=== PATIENT | male | born 1970 | race Caucasian/White ===

== ENCOUNTER 2021-05-08 08:34 | Inpatient (IN) | payer SELFPAY ==
[~2021-05-08] VITALS: Ht 167.6 cm; Wt 85.7 kg
--- NOTE | 2021-05-08 08:34 | NUR ---
PT [address]IBRA [address] C/O ETOH. PT IS UNCOOPERATIVE AND NO OTHER COMPLAINT. PT IS AAOX3, NOT IN RESPIRATORY DISTRESS, V/S STABLE, KEPT RESTED AND COMFORTABLE. WILL CONTINUE TO MONITOR.
--- NOTE | 2021-05-08 08:50 | NUR ---
PATIENT UNCOOPERATIVE, DOESN'T WANT TO PROVIDE URINE SAMPLE. MD AWARE
--- NOTE | 2021-05-08 09:16 | NUR ---
COVID SPECIMEN OBTAINED AND SENT TO LAB.
[2021-05-08 09:33] LABS: BASOPHILS % (AUTO) 0.2 % (0.0-2.0); HEMATOCRIT 51 % (39-51); HEMOGLOBIN 16.2 g/dL (13.5-17.5); LYMPHOCYTES # (AUTO) 1.2 K/uL (0.8-4.8); LYMPHOCYTES % (AUTO) 5.8 % (20.0-44.0); MEAN CORPUSCULAR HGB CONC 32 g/dl (31.0-36.0); MEAN CORPUSCULAR VOLUME 94 fL (80-96); MONOCYTES % (AUTO) 9.3 % (2.0-12.0); NEUTROPHILS # (AUTO) 17.8 K/uL (1.8-8.9); NEUTROPHILS % (AUTO) 84.7 % (43.0-81.0); PLATELET COUNT (AUTO) 378 K/uL (150-450); RED BLOOD CELL COUNT(AUTO) 5.38 MIL/uL (4.5-6.0); WHITE BLOOD COUNT (AUTO) 21.1 K/uL (4.3-11.0)
[2021-05-08 09:39] LABS: ALANINE AMINOTRANSFERASE 322 U/L (12-78); ALBUMIN 4.1 g/dL (3.4-5.0); ALCOHOL, BLOOD < 3 mg/dL (0-0); ALKALINE PHOSPHATASE 61 U/L (46-116); ASPARTATE AMINOTRANSFERASE 447 U/L (15-37); BILIRUBIN,DIRECT 0.6 mg/dL (0.0-0.2); BILIRUBIN,TOTAL 1.5 mg/dL (0.2-1.0); CALCIUM, SERUM 9.7 mg/dL (8.5-10.1); CARBON DIOXIDE 24 mmol/L (21-32); CHLORIDE 106 mmol/L (98-107); CREATININE 5.4 mg/dL (0.6-1.3); GLUCOSE 130 mg/dL (74-106); POTASSIUM 3.2 mmol/L (3.5-5.1); SODIUM SERUM 149 mmol/L (136-145); TOTAL PROTEIN, SERUM 8.3 g/dL (6.4-8.2)
[2021-05-08 09:41] LABS: UREA NITROGEN, BLOOD 132 mg/dL (7-18)
[2021-05-08 09:42] LABS: ACETAMINOPHEN < 10 ug/ml (10-30)
--- NOTE | 2021-05-08 09:57 | NUR ---
PT IS WHEELED TO CT SCAN VIA [facility].
[2021-05-08] MEDS ORDERED: IV NS 0.9% 1,000 ML IV ONE (10:00)
[2021-05-08] MEDS ORDERED: CEFTRIAXONE 1 G in IV D5W 50 ML IV ONE (10:00)
--- NOTE | 2021-05-08 10:12 | NUR ---
MOVE SHEET SUBMITTED AND CALLED FOR TELE BED.
--- NOTE | 2021-05-08 10:22 | NUR ---
[facility] CALLED LOOP CUTTER PAGED.
[2021-05-08] MEDS ORDERED: CEFTRIAXONE 1GM BAG (ER ONLY) 50 ML IV ONE (10:40)
--- NOTE | 2021-05-08 10:47 | NUR ---
URINE SPECIMEN COLLECTED AND SENT TO LAB.
[2021-05-08 11:37] LABS: BILIRUBIN,URINE MODERATE (NEGATIVE); COLOR,URINE YELLOW (YELLOW); LEUKOCYTE ESTERASE ,URINE NEGATIVE (NEGATIVE); NITRITE, URINE NEGATIVE (NEGATIVE); PH,URINE 5.5 (5.0-8.0); PROTEIN,URINE 100 mg/dl (NEGATIVE); UGLUCOSE NEGATIVE (NEGATIVE); UROBILINOGEN,URINE 0.2 EU/dL (0.2)
[2021-05-08 11:42] LABS: THYROID STIMULATING HORMONE 0.661 uIU/mL (0.358-3.74)
[2021-05-08 11:45] LABS: WBC,URINE 0-2 /HPF (0-3)
--- NOTE | 2021-05-08 11:45 | NUR ---
MID LINE RN AT BEDSIDE.
[2021-05-08 11:46] LABS: BACTERIA,URINE None seen /HPF (None Seen); SQUAMOUS EPITHELIAL CELL,UR Few /HPF (None Seen)
--- NOTE | 2021-05-08 12:00 | NUR ---
GOT BED [id number]
[2021-05-08] MEDS: Thiamine 100 MG in IV D5W 50 ML IV SCH (13:54)
[2021-05-08] MEDS ORDERED: ONDANSETRON HCL/PF 4 MG/2 ML VIAL IVP PRN (14:30)
[2021-05-08] MEDS ORDERED: IV D5W 1,000 ML IV PRN (14:30)
[2021-05-08] MEDS ORDERED: Z GUARD REMEDY 4 OZ OINT TP PRN (15:30)
--- NOTE | 2021-05-08 16:46 | NUR ---
REPORT GIVEN TO ROSALIA COSME FOR ANGE.
--- NOTE | 2021-05-08 17:10 | NUR ---
COTTON CONVERTER ADMITTING NOTES RECEIVED PATIENT FROM E.R VIA VIRA, ACCOMPANIED BY ROSALIA SUTHERLAND. PATIENT IS IS A&O X 0. ONLY OPENS EYES TO PAIN. ON O2 VIA NC AT 2LPM. SATURATING WELL, NO S/SX OF RESPIRATORY DISTRESS NOTED. NOTED WITH IV ACCESS ON RIGHT UPPER ARM MIDLINE G #18, ONGOING D5W 1000 X 75CC/HR. HOOKED TO TELE MONITOR, READING SHOWING SR HR AT 90'S. WITH ARCHER CONNECTED TO URINE BAG DRAINING DARK YELLOW COLORED URINE. NO SKIN ISSUES IDENTIFIED. UNABLE TO PROVIDE INFORMATION DURING ASSESSMENT. VITAL SIGNS TAKEN AND RECORDED. SAFETY PRECAUTIONS IN PLACE: BED ON LOWEST LOCKED POSITION, SIDE RAILS UP X2, CALL LIGHT WITHIN EASY REACH. WILL CONTINUE TO MONITOR ACCORDINGLY.
[2021-05-08 17:15] VITALS: BP 129/75
--- NOTE | 2021-05-08 19:00 | NUR ---
CROSS TIE TURNER OPENING NOTES: RECEIVED PATIENT IN BED, ASLEEP. NO S/S OF DISTRESS NOTED. HOB ELEVATED AT ALL TIMES. BED ALARM ON. BED IN LOWEST AND LOCKED POSITION. CALL LIGHT WITHION REACH. ON TELE MONITOR WITH SINUS 74. WITH ARCHER CATH INTACT, DRAINING JYOTI COLORED URINE.
--- NOTE | 2021-05-08 19:05 | NUR ---
FRONT DESK CLOSING NOTES PATIENT IN BED, A&O X 0. ONLY OPENS EYES TO PAIN. ON O2 VIA NC AT 2LPM. SATURATING WELL, NO S/SX OF RESPIRATORY DISTRESS NOTED. NOTED WITH IV ACCESS ON RIGHT UPPER ARM MIDLINE G #18, ONGOING D5W 1000 X 75CC/HR. ON TELE MONITOR, READING SHOWING SR HR AT 90'S. WITH ARCHER CONNECTED TO URINE BAG DRAINING DARK YELLOW COLORED URINE. SAFETY PRECAUTIONS IN PLACE: BED ON LOWEST LOCKED POSITION, SIDE RAILS UP X2, CALL LIGHT WITHIN EASY REACH. ALL NEEDS ATTENDED AND MET. WILL ENDORSE TO ONCOMING SHIFT FOR ANGE.
[2021-05-08 20:00] VITALS: BP 135/91
[2021-05-08] MEDS ORDERED: HEPARIN SODIUM, PORCINE 5000 UNITS/1 ML VIAL IV SCH (21:00)
[2021-05-08 23:44] VITALS: BP 135/91
[2021-05-09] VITALS: BP 137/85
[2021-05-09 04:00] VITALS: BP 123/67
[2021-05-09] MEDS: IV D5W 1,000 ML IV PRN (04:19)
[2021-05-09 07:01] LABS: BASOPHILS # (AUTO) 0.1 K/uL (0.0-0.2); BASOPHILS % (AUTO) 0.4 % (0.0-2.0); EOSINOPHILS % (AUTO) 0.1 % (0.0-6.0); HEMATOCRIT 49 % (39-51); HEMOGLOBIN 16.1 g/dL (13.5-17.5); LYMPHOCYTES # (AUTO) 0.8 K/uL (0.8-4.8); LYMPHOCYTES % (AUTO) 5.4 % (20.0-44.0); MEAN CORPUSCULAR HGB CONC 33 g/dl (31.0-36.0); MEAN CORPUSCULAR VOLUME 94 fL (80-96); MONOCYTES % (AUTO) 6.8 % (2.0-12.0); NEUTROPHILS # (AUTO) 12.2 K/uL (1.8-8.9); NEUTROPHILS % (AUTO) 87.3 % (43.0-81.0); PLATELET COUNT (AUTO) 270 K/uL (150-450); RED BLOOD CELL COUNT(AUTO) 5.21 MIL/uL (4.5-6.0)
[2021-05-09 07:20] LABS: ALBUMIN 3.4 g/dL (3.4-5.0); BILIRUBIN,TOTAL 0.9 mg/dL (0.2-1.0); CALCIUM, SERUM 8.7 mg/dL (8.5-10.1); CREATININE 2.4 mg/dL (0.6-1.3); PHOSPHORUS 4.6 mg/dL (2.5-4.9); POTASSIUM 3.5 mmol/L (3.5-5.1); TOTAL PROTEIN, SERUM 7.6 g/dL (6.4-8.2)
[2021-05-09 07:49] LABS: MAGNESIUM 4.6 mg/dL (1.8-2.4)
[2021-05-09] MEDS: PANTOPRAZOLE 40 MG VIAL IV SCH (08:13)
[2021-05-09] MEDS: HEPARIN SODIUM, PORCINE 5000 UNITS/1 ML VIAL SQ SCH ×2 (08:15→20:14)
[2021-05-09 09:10] VITALS: BP 128/72
--- NOTE | 2021-05-09 11:00 | NUR ---
RN NOTES LORAINE EDMONDS NP AT BEDSIDE TO SEE THE PATIENT.
[2021-05-09 12:05] VITALS: BP 116/75
[2021-05-09] MEDS: Thiamine 100 MG in IV D5W 50 ML IV SCH (13:46)
--- NOTE | 2021-05-09 14:30 | NUR ---
RN NOTES SEEN PATIENT AND STIMULATED VERBALLY AND THROUGH TACTILE SENSATION; ACCOUNTING FILE CLERK ALSO AT BEDSIDE TO TRANSLATE. PATIENT ABLE TO ANSWER SIMPLE QUESTIONS AND FOLLOW SIMPLE COMMANDS; ABLE TO PROVIDE NAME OF "REJI FUENTES" AND "10/14/1960". ABLE TO SIP A LITTLE BIT OF WATER. COMPLAINT OF BODY PAIN BUT UNABLE TO RATE; UNABLE TO PROVIDE ANY OTHER INFORMATION. LOADING UNIT OPERATOR POWDER CHARGING MADE AWARE.
--- NOTE | 2021-05-09 14:41 | NUR ---
RN NOTES NURSING SWALLOW SCREEN DONE AND PATIENT PASSED. SENIOR PENSIONS ADMINISTRATOR MADE AWARE AND PROVIDED RECOMMENDATIONS.
[2021-05-09] MEDS ORDERED: LACTULOSE UDC 200 G in SODIUM CHLORIDE IRRIG SOLUTION 400 ML IR ONE (15:00)
--- NOTE | 2021-05-09 15:50 | NUR ---
RN NOTES OKAY TO GIVE LACTULOSE BY MOUTH PER PHARMACY PATIENT IS ABLE TO SWALLOW LIQUIDS.
--- NOTE | 2021-05-09 16:01 | NUR ---
RN NOTES OK TO ADVANCE DIET TOLERATED PER COORDINATOR INTEGRATED MARKETING.
[2021-05-09] MEDS: LACTULOSE 10 G/15 ML UDC (PYXIS) PO PRN ×2 (16:03→23:25)
[2021-05-09 16:10] VITALS: BP 125/78
[2021-05-09] MEDS: ERYTHROMYCIN BASE OPHTH 3.5 GM TUBE EACHEYE SCH ×2 (18:02→23:30)
--- NOTE | 2021-05-09 19:24 | NUR ---
RN NOTES PATIENT ABLE TO DRINK MILK FROM DINNER TRAY, BUT DID NOT EAT OTHER ITEMS IN TRAY. DRINKS FLUIDS WELL, NO ASPIRATION NOTED. ABLE TO BE AWAKENED, RESPONDS TO NAME AND TOUCH. IVF CONTINUOUS, ARCHER CATH IN PLACE. SAFETY MEASURES MAINTAINED. ENDORSED TO WOOD MILLING MACHINE TENDER RN FOR ANGE.
[2021-05-09 20:37] VITALS: BP 149/89
[2021-05-09] MEDS: ACETAMINOPHEN 650 MG/SUPP.RECT RC PRN (21:24)
--- NOTE | 2021-05-09 21:49 | NUR ---
Tylenol suppository given for temp 100.4 and cooling measures put in place.
[2021-05-10 00:09] LABS: CALCIUM, SERUM 8.4 mg/dL (8.5-10.1); POTASSIUM 3.8 mmol/L (3.5-5.1)
[2021-05-10 00:55] VITALS: BP 113/71
[2021-05-10 04:33] VITALS: BP 120/66
[2021-05-10] MEDS: IV D5W 1,000 ML IV PRN (05:03)
[2021-05-10] MEDS: ERYTHROMYCIN BASE OPHTH 3.5 GM TUBE EACHEYE SCH ×4 (05:31→23:25)
[2021-05-10] MEDS: LACTULOSE 10 G/15 ML UDC (PYXIS) PO PRN (05:31)
[2021-05-10 06:55] LABS: CALCIUM, SERUM 8.5 mg/dL (8.5-10.1); CREATININE 1.9 mg/dL (0.6-1.3); PHOSPHORUS 3.5 mg/dL (2.5-4.9); POTASSIUM 3.7 mmol/L (3.5-5.1)
--- NOTE | 2021-05-10 07:19 | NUR ---
DOCK LOADER OPENING NOTES RECEIVED PATIENT RESTING IN BED. PATIENT IS IS A&O X 0. ONLY OPENS EYES TO PAIN. ON O2 VIA NC AT 2LPM. SATURATING WELL, NO S/SX OF RESPIRATORY DISTRESS NOTED. NOTED WITH IV ACCESS ON RIGHT UPPER ARM MIDLINE G #18, ONGOING D5W 1000 X 75CC/HR. HOOKED TO TELE MONITOR, READING SHOWING SR HR AT 90'S. WITH ARCHER CONNECTED TO URINE BAG DRAINING DARK YELLOW COLORED URINE. SAFETY PRECAUTIONS IN PLACE: BED ON LOWEST LOCKED POSITION, SIDE RAILS UP X2, CALL LIGHT WITHIN EASY REACH. WILL CONTINUE TO MONITOR
--- NOTE | 2021-05-10 07:20 | NUR ---
RN CLOSING NOTES Patient has been alert, but not oriented, however did say thank you on one occasion when offered fluids. Patient tolerating fluids well, no choking or coughing. Temperature resolved with tylenol suppository and cooling measures. Lactulose given PRN for encephalopathy pt. cooperative and calm. Repositioned q2h, kept clean and dry, pt. is max assist with positioning. No other issues overnight. Addendum: 05/10/21 at 0731 by JAN WAGONER RN SR on monitor overnight.
[2021-05-10 07:42] LABS: MAGNESIUM 4.2 mg/dL (1.8-2.4)
[2021-05-10 08:00] VITALS: BP 126/76
[2021-05-10] MEDS: PANTOPRAZOLE 40 MG VIAL IV SCH (08:38)
[2021-05-10] MEDS: HEPARIN SODIUM, PORCINE 5000 UNITS/1 ML VIAL SQ SCH ×2 (08:38→22:20)
[2021-05-10 08:49] LABS: BASOPHILS % (AUTO) 0.1 % (0.0-2.0); EOSINOPHILS % (AUTO) 0.1 % (0.0-6.0); HEMATOCRIT 47 % (39-51); HEMOGLOBIN 15.1 g/dL (13.5-17.5); LYMPHOCYTES % (AUTO) 4.5 % (20.0-44.0); MEAN CORPUSCULAR HGB CONC 32 g/dl (31.0-36.0); MEAN CORPUSCULAR VOLUME 95 fL (80-96); MONOCYTES # (AUTO) 1.3 K/uL (0.1-1.30); MONOCYTES % (AUTO) 6.2 % (2.0-12.0); NEUTROPHILS # (AUTO) 18.9 K/uL (1.8-8.9); NEUTROPHILS % (AUTO) 89.1 % (43.0-81.0); PLATELET COUNT (AUTO) 202 K/uL (150-450); RED BLOOD CELL COUNT(AUTO) 4.93 MIL/uL (4.5-6.0); WHITE BLOOD COUNT (AUTO) 21.2 K/uL (4.3-11.0)
[2021-05-10] MEDS: CEFTRIAXONE 2 G in IV D5W 100 ML IV SCH ×2 (09:26→22:21)
[2021-05-10] MEDS: VANCOMYCIN 1.25 GM in IV D5W 250 ML IV SCH (11:29)
--- NOTE | 2021-05-10 12:59 | NUR ---
SS Consult: SS consult for Ammon Petersen. Pt. Is a 47-year-old male. Pt. is Georgian speaking. Erna from [facility] helped translate. Pt. stated his name is Cecil Botello and his is 72. Pt. does not demonstrate adequate insight to the reason for hospitalization. Per pt., he does not remember how he got to the hospital. Pt. was oriented x1/2, alert, and cooperative. During interview, pt. was capable of following directions and did not make appropriate eye-contact. Pt.s speech was at a low rate. Pt. appeared tired. SW explored pt.s living situation. Per pt., he resides with his sister Erna [pt. was not able to provide information]. SW explored pt.s hx of mental health and substance abuse. Pt. was not able to provide any history. Plan: SW provided available resources and pt. rejected. Will gather more information once pt. is more oriented.
[2021-05-10] MEDS: Thiamine 100 MG in IV D5W 50 ML IV SCH (14:29)
[2021-05-10] MEDS: MORPHINE SULFATE INJ 4 MG/ML DISP.SYRIN IV PRN ×2 (14:58→23:46)
[2021-05-10 16:00] VITALS: BP 104/65
--- NOTE | 2021-05-10 18:21 | NUR ---
UPS DRIVER CLOSING NOTES PATIENT RESTING IN BED. PATIENT IS IS A&O X 0. ONLY OPENS EYES TO PAIN. PATIENT IS BREATHING EVENLY AND NONLABORED ON O2 VIA NC AT 2LPM. SATURATING WELL, NO S/SX OF RESPIRATORY DISTRESS NOTED. NOTED WITH IV ACCESS ON RIGHT UPPER ARM MIDLINE G #18, ONGOING D5W 1000 X 75CC/HR. HOOKED TO TELE MONITOR, READING SHOWING SR HR AT 90'S. WITH ARCHER CONNECTED TO URINE BAG DRAINING DARK YELLOW COLORED URINE. ALL MEDICATIONS GIVEN ORDERED. SAFETY PRECAUTIONS IN PLACE: BED ON LOWEST LOCKED POSITION, SIDE RAILS UP X2, CALL LIGHT WITHIN EASY REACH. WILL ENDORSE TO ONCOMING SHIFT
[2021-05-10 18:46] LABS: CSF GLUCOSE 98 mg/dL (40-70); CSF PROTEIN 28.3 mg/dL (15-45)
--- NOTE | 2021-05-10 19:35 | NUR ---
MSRN ASLEEP, O2 AT 2 LITERS, IVF AT 125CC/HR INFUSING WELL. WILL REASSESS ONCE FULLY AWAKE. TO CONTINUE.
[2021-05-10 20:46] VITALS: BP 104/69
--- NOTE | 2021-05-10 23:45 | NUR ---
MSRN HS CARE DONE. VERBALIZES UNBEARABLE GENERALIZED PAIN SUNIL WHEN MOVED FROM SIDE TO SIDE. MORPHINE 4 MG IVP ADMINISTERED ORDERED.ABLE TO SAY HIS FIRST NAME, 02 2 L MAINTAINED. NO RESP DISTRESS, PRESENT IVF INFUSING WELL AT 125CC/HR VIA RIGHT UPPER ARM MIDLINE. COOPERATIVE, IN TEARS FROM HIS "ALL OVER PAIN" STATED. KEPT COMFORTABLE. EXPLAINED HEALTH CONDITION POOR CONCENTRATION. NEEDS CLOSER OBSERVATION AND FREQ CHECKING. BED ALARM ON, HFR. KEPT DRY CLEAN AND COMFORTABLE.
[2021-05-11] MEDS: IV D5W 1,000 ML IV PRN ×2 (02:47→15:13)
[2021-05-11] MEDS: VANCOMYCIN 1.25 GM in IV D5W 250 ML IV SCH ×2 (06:02→16:53)
[2021-05-11] MEDS: ERYTHROMYCIN BASE OPHTH 3.5 GM TUBE EACHEYE SCH ×4 (06:08→23:26)
--- NOTE | 2021-05-11 06:30 | NUR ---
MSRN SLEPT MOST OF THE NIGHT. OPENS EYES WHEN CALLED. PRESENT IVF CONTINUED. ARCHER 900 CC CLEAR JYOTI OUTPUT. KEPT COMFORTABLE.
[2021-05-11 06:45] LABS: BASOPHILS % (AUTO) 0.1 % (0.0-2.0); EOSINOPHILS % (AUTO) 0.6 % (0.0-6.0); HEMATOCRIT 42 % (39-51); HEMOGLOBIN 13.8 g/dL (13.5-17.5); LYMPHOCYTES # (AUTO) 1.2 K/uL (0.8-4.8); LYMPHOCYTES % (AUTO) 6.4 % (20.0-44.0); MEAN CORPUSCULAR HGB CONC 33 g/dl (31.0-36.0); MEAN CORPUSCULAR VOLUME 94 fL (80-96); MONOCYTES # (AUTO) 1.5 K/uL (0.1-1.30); MONOCYTES % (AUTO) 7.7 % (2.0-12.0); NEUTROPHILS # (AUTO) 16.2 K/uL (1.8-8.9); NEUTROPHILS % (AUTO) 85.2 % (43.0-81.0); PLATELET COUNT (AUTO) 152 K/uL (150-450); RED BLOOD CELL COUNT(AUTO) 4.44 MIL/uL (4.5-6.0)
--- NOTE | 2021-05-11 07:30 | NUR ---
RN MS NOTES PT IN BED, ASLEEP, AROUSABLE, SLEEPY, NO SIGN OF PAIN OR DISTRESS, CALL LIGHT WITHIN REACH, IV FLUIDS INFUSING WELL, F/C DRAINING WELL WITH CLEAR, YELLOW URINE.
[2021-05-11 08:00] VITALS: BP 119/71
[2021-05-11 08:55] LABS: CALCIUM, SERUM 7.8 mg/dL (8.5-10.1); CREATININE 1.4 mg/dL (0.6-1.3); MAGNESIUM 3.2 mg/dL (1.8-2.4); PHOSPHORUS 2.6 mg/dL (2.5-4.9); POTASSIUM 3.8 mmol/L (3.5-5.1)
[2021-05-11 09:58] LABS: ALBUMIN 2.4 g/dL (3.4-5.0); BILIRUBIN,DIRECT 0.2 mg/dL (0.0-0.2); BILIRUBIN,TOTAL 0.7 mg/dL (0.2-1.0); TOTAL PROTEIN, SERUM 6.5 g/dL (6.4-8.2)
[2021-05-11] MEDS: CEFTRIAXONE 2 G in IV D5W 100 ML IV SCH ×2 (10:06→21:37)
[2021-05-11 10:08] LABS: *ANA ANTI-CENTROMERE B AB <0.2 AI (0.0-0.9); *ANA ANTI-DNA(DS) AB, QN <1 IU/mL (0-9); *ANA ANTI-JO-1 <0.2 AI (0.0-0.9); *ANA ANTICHROMATIN ANTIBODY <0.2 AI (0.0-0.9); *ANA RNP ANTIBODIES <0.2 AI (0.0-0.9); *ANA SJOGREN'S ANTI-SS-A <0.2 AI (0.0-0.9); *ANA SJOGREN'S ANTI-SS-B <0.2 AI (0.0-0.9); *ANAANTI-SCLERODERMA-70 AB <0.2 AI (0.0-0.9); *ANASMITH AB <0.2 AI (0.0-0.9)
[2021-05-11] MEDS: MORPHINE SULFATE INJ 4 MG/ML DISP.SYRIN IV PRN ×2 (10:11→17:04)
[2021-05-11] MEDS: PANTOPRAZOLE 40 MG VIAL IV SCH (10:12)
[2021-05-11] MEDS: HEPARIN SODIUM, PORCINE 5000 UNITS/1 ML VIAL SQ SCH ×2 (10:21→21:33)
[2021-05-11 12:06] LABS: *SPE ALPHA-1-GLOBULIN 0.2 g/dL (0.0-0.4); *SPE ALPHA-2-GLOBULIN 0.8 g/dL (0.4-1.0); *SPE BETA GLOBULIN 1.2 g/dL (0.7-1.3); *SPE M-SPIKE Not Observed g/dL (Not Observed)
[2021-05-11] MEDS: Thiamine 100 MG in IV D5W 50 ML IV SCH (15:12)
[2021-05-11 16:00] VITALS: BP 135/79
[2021-05-11] MEDS: ACETAMINOPHEN 650 MG/SUPP.RECT RC PRN (16:52)
--- NOTE | 2021-05-11 19:00 | NUR ---
RN MS NOTES PT IN BED, ASLEEP, EASY TO AROUSE, ALERT TO SELF, VERBALLY RESPONSIVE, ABLE TO VERBALIZE PAIN, PM MEDS GIVEN ORDERED, PM CARE PROVIDED, ALL NEEDS ATTENDED.
--- NOTE | 2021-05-11 19:11 | NUR ---
CONTINUITY OF CARE Patient forgetful, on supplemental Oxygen 2L NC. Oxygen sat 94%. ARACELI midline intact, IVF infusing. Way cath intact, draining yellow urine. Will cont to provide care. Call light within reach.
[2021-05-11 20:00] VITALS: BP 111/70
[2021-05-11 20:33] VITALS: BP 111/70
[2021-05-12] MEDS: IV D5W 1,000 ML IV PRN (04:04)
[2021-05-12 04:10] LABS: BASOPHILS # (AUTO) 0.1 K/uL (0.0-0.2); BASOPHILS % (AUTO) 0.3 % (0.0-2.0); EOSINOPHILS % (AUTO) 0.7 % (0.0-6.0); HEMATOCRIT 41 % (39-51); HEMOGLOBIN 13.7 g/dL (13.5-17.5); LYMPHOCYTES # (AUTO) 1.1 K/uL (0.8-4.8); LYMPHOCYTES % (AUTO) 4.7 % (20.0-44.0); MEAN CORPUSCULAR HGB CONC 33 g/dl (31.0-36.0); MEAN CORPUSCULAR VOLUME 92 fL (80-96); MONOCYTES # (AUTO) 1.7 K/uL (0.1-1.30); MONOCYTES % (AUTO) 7.1 % (2.0-12.0); NEUTROPHILS # (AUTO) 20.4 K/uL (1.8-8.9); NEUTROPHILS % (AUTO) 87.2 % (43.0-81.0); PLATELET COUNT (AUTO) 162 K/uL (150-450); RED BLOOD CELL COUNT(AUTO) 4.47 MIL/uL (4.5-6.0); WHITE BLOOD COUNT (AUTO) 23.4 K/uL (4.3-11.0)
[2021-05-12 04:15] LABS: LIPASE 513 U/L (73-393)
[2021-05-12 04:23] LABS: ALBUMIN 2.2 g/dL (3.4-5.0); BILIRUBIN,DIRECT 0.2 mg/dL (0.0-0.2); BILIRUBIN,TOTAL 0.6 mg/dL (0.2-1.0); CALCIUM, SERUM 8.1 mg/dL (8.5-10.1); CREATININE 1.4 mg/dL (0.6-1.3); POTASSIUM 3.6 mmol/L (3.5-5.1)
[2021-05-12 04:29] LABS: CREATINE KINASE, TOTAL 2821 U/L (39-308)
[2021-05-12] MEDS: VANCOMYCIN 1.25 GM in IV D5W 250 ML IV SCH (05:01)
[2021-05-12] MEDS: ERYTHROMYCIN BASE OPHTH 3.5 GM TUBE EACHEYE SCH ×4 (05:04→23:52)
--- NOTE | 2021-05-12 05:30 | NUR ---
END OF SHIFT REPORT Patient appears to be more alert this morning. On Oxygen support 2L NC, oxygen sat in high 90's. ARACELI midline, ongoing IVF. On IV abx. Afebrile. Denies chest pain, no acute respiratory distress. Will endorse to oncoming RN.
[2021-05-12 08:00] VITALS: BP 129/72
[2021-05-12] MEDS: IV NS 0.9% 1,000 ML IV SCH ×2 (09:01→17:33)
[2021-05-12] MEDS: PANTOPRAZOLE 40 MG VIAL IV SCH (09:02)
[2021-05-12] MEDS: CEFTRIAXONE 2 G in IV D5W 100 ML IV SCH ×2 (09:02→20:53)
[2021-05-12] MEDS: HEPARIN SODIUM, PORCINE 5000 UNITS/1 ML VIAL SQ SCH ×2 (09:03→20:52)
[2021-05-12 09:07] LABS: COMPLEMENT C3, SERUM 121 mg/dL (82-167); COMPLEMENT C4, SERUM 35 mg/dL (12-38)
[2021-05-12] MEDS: Thiamine 100 MG in IV D5W 50 ML IV SCH (14:20)
[2021-05-12 14:21] LABS: BAND % (MANUAL) 2 % (0.0-5.0); LYMPHOCYTES % (MANUAL) 7 % (16-48); MONOCYTES % (MANUAL) 7 % (0-11.0); NEUTROPHILS % (MANUAL) 84 (42-76)
[2021-05-12 16:00] VITALS: BP 118/74
[2021-05-12] MEDS: ACETAMINOPHEN 650 MG/SUPP.RECT RC PRN (16:06)
[2021-05-12] MEDS: MORPHINE SULFATE INJ 4 MG/ML DISP.SYRIN IV PRN (17:37)
[2021-05-12 20:00] VITALS: BP 133/83
[2021-05-13] MEDS: MORPHINE SULFATE INJ 4 MG/ML DISP.SYRIN IV PRN ×4 (01:04→20:43)
--- NOTE | 2021-05-13 01:04 | NUR ---
ADMINISTERED MORPHINE PER MD ORDER. VS WNL. WILL CONTINUE TO MONITOR.
[2021-05-13] MEDS: IV NS 0.9% 1,000 ML IV SCH ×3 (03:52→23:47)
[2021-05-13] MEDS: ERYTHROMYCIN BASE OPHTH 3.5 GM TUBE EACHEYE SCH ×4 (05:35→23:47)
--- NOTE | 2021-05-13 06:56 | NUR ---
RN CLOSING NOTES PT IN BED, AWAKE. AOx2-3. ON NC 2LPM AND TOLERATING WELL. NO SOB NOTED. NO S/SX OF RESPIRATORY DISTRESS NOTED.IV ACCESS IN ARACELI MIDLINE. IV IS INTACT, PATENT, AND FLUSHING WELL. ALL NEEDS MET. PT KEPT CLEAN AND DRY. TREATED PAIN ONCE DURING SHIFT. SAFETY PRECAUTIONS IN PLACE: BED IN LOWEST, LOCKED POSITION, BRAKES ON. SIDERAILS UPx2, AND BRAKES ON. TABLE AND CALL LIGHT WITHIN REACH. WILL ENDORSE TO ONCOMING SHIFT.
[2021-05-13 07:10] LABS: LIPASE 152 U/L (73-393)
--- NOTE | 2021-05-13 07:30 | NUR ---
MS RN OPENING NOTES RECEIVED PT IN BED, AWAKE. AOx2-3. ON NC 2LPM AND TOLERATING WELL. NO SOB NOTED. NO S/SX OF RESPIRATORY DISTRESS NOTED.IV ACCESS IN ARACELI MIDLINE. IV IS INTACT, PATENT, AND FLUSHING WELL. SAFETY PRECAUTIONS IN PLACE: BED IN LOWEST, LOCKED POSITION, BRAKES ON. SIDERAILS UPx2, AND BRAKES ON. TABLE AND CALL LIGHT WITHIN REACH. WILL CONTINUE TO MONITOR.
[2021-05-13] MEDS: PANTOPRAZOLE 40 MG VIAL IV SCH (08:51)
[2021-05-13] MEDS: HEPARIN SODIUM, PORCINE 5000 UNITS/1 ML VIAL SQ SCH ×2 (08:52→20:47)
[2021-05-13 10:09] LABS: CREATINE KINASE, TOTAL 1689 U/L (39-308)
[2021-05-13] MEDS: Thiamine 100 MG in IV D5W 50 ML IV SCH (14:22)
--- NOTE | 2021-05-13 19:30 | NUR ---
MS RN CLOSING NOTES PT IN BED, AWAKE. AOx2-3. ON NC 2LPM AND TOLERATING WELL. NO SOB NOTED. NO S/SX OF RESPIRATORY DISTRESS NOTED.IV ACCESS IN ARACELI MIDLINE. IV IS INTACT, PATENT, AND FLUSHING WELL. IV ACCESS IN THE RIGHT LOWER ARM INTACT FLUSHING WELL. ALL DUE MEDS GIVEN ORDERED. SAFETY PRECAUTIONS IN PLACE: BED IN LOWEST, LOCKED POSITION, BRAKES ON. SIDERAILS UPx2, AND BRAKES ON. TABLE AND CALL LIGHT WITHIN REACH. WILL ENDORSE INCOMING SHIFT FOR ANGE.
[2021-05-13 20:00] VITALS: BP 129/89
--- NOTE | 2021-05-13 20:01 | NUR ---
RN OPENING NOTES RECEIVED PT IN BED, AWAKE. AOx3. ON NC 2LPM AND TOLERATING WELL. NO SOB NOTED. NO S/SX OF RESPIRATORY DISTRESS NOTED. IV ACCESS IN ARACELI MIDLINE RUNNING NS @ 100 ML/HR. SAFETY PRECAUTIONS IN PLACE: BED IN LOWEST, LOCKED POSITION, BRAKES ON. SIDERAILS UPx2, AND BRAKES ON. TABLE AND CALL LIGHT WITHIN REACH. WILL CONTINUE TO MONITOR.
--- NOTE | 2021-05-13 21:10 | NUR ---
SYRINGES OF HEPARIN AND MORPHINE FELL TO FLOOR AND COULD NOT BE DIFFERENTIATED. REMOVED SECOND DOSE OF HEPARIN AND MORPHINE.
[2021-05-14] MEDS: LACTULOSE 10 G/15 ML UDC (PYXIS) PO PRN (04:56)
[2021-05-14] MEDS: MORPHINE SULFATE INJ 4 MG/ML DISP.SYRIN IV PRN ×2 (04:56→09:32)
[2021-05-14] MEDS: ERYTHROMYCIN BASE OPHTH 3.5 GM TUBE EACHEYE SCH ×3 (04:56→17:07)
--- NOTE | 2021-05-14 05:04 | NUR ---
WENT TO ADMINISTER MORPHINE IV AND MIDLINE WAS REMOVED. WASTED IV MORPHINE, WHICH WAS PULLED FROM VIAL. WILL CONTACT DR. KEE FOR MIDLINE.
[2021-05-14 07:06] LABS: BASOPHILS % (AUTO) 0.1 % (0.0-2.0); EOSINOPHILS % (AUTO) 2.2 % (0.0-6.0); HEMATOCRIT 39 % (39-51); HEMOGLOBIN 13.1 g/dL (13.5-17.5); LYMPHOCYTES % (AUTO) 5.9 % (20.0-44.0); MEAN CORPUSCULAR HGB CONC 33 g/dl (31.0-36.0); MEAN CORPUSCULAR VOLUME 93 fL (80-96); MONOCYTES # (AUTO) 1.6 K/uL (0.1-1.30); MONOCYTES % (AUTO) 9.3 % (2.0-12.0); NEUTROPHILS # (AUTO) 14.3 K/uL (1.8-8.9); NEUTROPHILS % (AUTO) 82.5 % (43.0-81.0); PLATELET COUNT (AUTO) 265 K/uL (150-450); RED BLOOD CELL COUNT(AUTO) 4.25 MIL/uL (4.5-6.0); WHITE BLOOD COUNT (AUTO) 17.4 K/uL (4.3-11.0)
--- NOTE | 2021-05-14 07:20 | NUR ---
MS RN OPENING NOTES RECEIVED PATIENT IN BED, AWAKE, NO SIGNS OF ACUTE DISTRESS NOTED. ON O2 @ 2LPM VIA N/C, NO SOB NOTED. NO IV ACCESS AT THIS TIME, ENDORSED BY REHABILITATION PSYCHOLOGIST. MIDLINE INSERTION WAS ORDERED. WITH F/C INTACT, DRAINING CLEAR YELLOW COLORED URINE. SAFETY MEASURE IN PLACE. BED LOCKED AND IN LOWEST POSITION, SR UP, CALL LIGHT PLACED WITHIN EASY REACH. WILL CONTINUE TO MONITOR.
--- NOTE | 2021-05-14 07:24 | NUR ---
REPORT GIVEN. PT STABLE. WASTED MORPHINE WITH GATITO LINDSEY.
[2021-05-14 08:48] VITALS: BP 137/88
[2021-05-14] MEDS: HEPARIN SODIUM, PORCINE 5000 UNITS/1 ML VIAL SQ SCH ×2 (08:56→21:10)
[2021-05-14] MEDS: PANTOPRAZOLE 40 MG VIAL IV SCH (09:29)
[2021-05-14] MEDS: ACETAMINOPHEN 650 MG/SUPP.RECT RC PRN (09:31)
[2021-05-14] MEDS: IV NS 0.9% 1,000 ML IV SCH ×2 (09:40→21:51)
[2021-05-14 10:13] LABS: BAND % (MANUAL) 2 % (0.0-5.0); NEUTROPHILS % (MANUAL) 74 (42-76)
[2021-05-14 10:14] LABS: EOSINOPHILS % (MANUAL) 2 % (0-4); LYMPHOCYTES % (MANUAL) 7 % (16-48); MONOCYTES % (MANUAL) 15 % (0-11.0)
[2021-05-14 11:33] LABS: BILIRUBIN,DIRECT 0.2 mg/dL (0.0-0.2); BILIRUBIN,TOTAL 0.7 mg/dL (0.2-1.0); CALCIUM, SERUM 8.1 mg/dL (8.5-10.1); CREATININE 1.3 mg/dL (0.6-1.3); POTASSIUM 3.3 mmol/L (3.5-5.1); TOTAL PROTEIN, SERUM 6.9 g/dL (6.4-8.2)
[2021-05-14 11:35] LABS: ALBUMIN 1.7 g/dL (3.4-5.0)
[2021-05-14 14:11] LABS: LIPASE 202 U/L (73-393)
[2021-05-14] MEDS: THIAMINE HCL 100 MG TABLET PO SCH (14:28)
[2021-05-14 15:02] LABS: CREATINE KINASE, TOTAL 1426 U/L (39-308)
[2021-05-14 16:51] VITALS: BP 140/98
--- NOTE | 2021-05-14 18:57 | NUR ---
MS RN CLOSING NOTES PATIENT IN BED, AWAKE, NO SIGNS OF ACUTE DISTRESS NOTED. REMAINS ON O2 @ 2LPM VIA N/C, NO SOB NOTED, SATURATING @94%. MIDLINE ON ARACELI #18G INTACT AND PATENT, NS @100ML/HR RUNNING. WITH F/C INTACT, DRAINING CLEAR YELLOW COLORED URINE. SAFETY MEASURE IN PLACE. BED LOCKED AND IN LOWEST POSITION, SR UP, CALL LIGHT PLACED WITHIN EASY REACH. WILL ENDORSE TO NEXT SHIFT.
--- NOTE | 2021-05-14 19:05 | NUR ---
RN NOTES: RECEIVED AWAKE ON BED, PER ENDORSEMENT PATIENT IS NOT TALKING OR HAVING CONVERSATION WITH STAFF, A/OX1, ORIENTED TO UNIT AND STAFF, ARACELI-ML IN SITE WITH IVF OF NS AT 100 ML/HR VIA INFUSION PUMP, WITH O2 AT 2L/MIN, NO SOB OR ANY SIGN OF RESPIRATORY DISCOMFORT, ON ARCHER CATH DRAINING INTO DARK YELLOWISH COLORED URINE AT 200 CC LEVEL, FOR LABS IN THE MORNING.
[2021-05-14 20:00] VITALS: BP 146/94
--- NOTE | 2021-05-14 21:51 | NUR ---
RN NOTES: IVF ON N/S COMPLETED, STARTED NEW BOTTLE REGULATED AT 100 ML/HR VIA INFUSION PUMP.ON CLOSE WATCH.
[2021-05-15] MEDS: ERYTHROMYCIN BASE OPHTH 3.5 GM TUBE EACHEYE SCH ×5 (00:30→23:39)
--- NOTE | 2021-05-15 01:59 | NUR ---
RN NOTES: PATIENT TRIED TO GET UP FROM HIS BED WITHOUT CALLING FOR ASSISTANCE, AUTOMOBILE SALESMAN CAME AND RN TO HELP HIM, HIS IV CANNULA WAS ACCIDENTALLY PULLED OUT, HE DONT TALK RN AND AUTOMOBILE SALESMAN BOTH ENCOURAGING HIM TO SAY AND EXPRESS HIMSELF WHAT HE NEEDS.INSTRUCTED HOW TO USE THE CALL LIGHT. -EXPLAINED TO HIM RN WILL INSERT THE CANNULA AGAIN HE AGREED.
--- NOTE | 2021-05-15 02:17 | NUR ---
RN NOTES: NEW IV CANNULA INSERTED ON THE RH G#22, 1 ATTEMPT WITH GOOD BACK FLOW, SECURED WITH TRANSPARENT DRESSING.
[2021-05-15 07:07] LABS: BASOPHILS % (AUTO) 0.2 % (0.0-2.0); EOSINOPHILS % (AUTO) 2.1 % (0.0-6.0); HEMATOCRIT 38 % (39-51); HEMOGLOBIN 12.4 g/dL (13.5-17.5); LYMPHOCYTES # (AUTO) 1.3 K/uL (0.8-4.8); LYMPHOCYTES % (AUTO) 6.7 % (20.0-44.0); MEAN CORPUSCULAR HGB CONC 33 g/dl (31.0-36.0); MEAN CORPUSCULAR VOLUME 93 fL (80-96); MONOCYTES # (AUTO) 1.7 K/uL (0.1-1.30); MONOCYTES % (AUTO) 8.8 % (2.0-12.0); NEUTROPHILS % (AUTO) 82.2 % (43.0-81.0); PLATELET COUNT (AUTO) 302 K/uL (150-450); WHITE BLOOD COUNT (AUTO) 19.5 K/uL (4.3-11.0)
--- NOTE | 2021-05-15 07:40 | NUR ---
MS RN OPENING NOTE Patient in bed, awake. A/O x 1, Belarusian speaking. On O2 at 2 LPM via NC, breathing evenly and unlabored. No SOB or s/s of distress noted. IV access on Right hand #20G infusing NS at 100 ml/hr. Way catheter in place draining to an taniya colored urine. Safety precautions in place: bed in low, locked position; siderails up x 2; call light within reach. Will continue to monitor.
[2021-05-15] MEDS: IV NS 0.9% 1,000 ML IV SCH ×2 (07:43→17:25)
--- NOTE | 2021-05-15 07:43 | NUR ---
RN NOTES: IVF CONSUMED, NEW BOTTLE OF NS AT 100 ML/HR STARTED, PATIENT IS MORE RESPONSIVE RIGHT NOW,HE TALK AND ASKED FOR WATER, ENCOURAGE TO VERBALIZED NEEDS, INSTRUCT TO USE THE CALL LIGHT, ENDORSED FOR CONTINUITY OF CARE.
[2021-05-15 07:54] LABS: ALBUMIN 1.7 g/dL (3.4-5.0); BILIRUBIN,DIRECT 0.3 mg/dL (0.0-0.2); BILIRUBIN,TOTAL 0.7 mg/dL (0.2-1.0); CALCIUM, SERUM 7.8 mg/dL (8.5-10.1); CREATININE 1.1 mg/dL (0.6-1.3); TOTAL PROTEIN, SERUM 6.3 g/dL (6.4-8.2)
[2021-05-15 08:00] VITALS: BP 137/62
[2021-05-15 09:22] LABS: LIPASE 243 U/L (73-393)
[2021-05-15] MEDS: PANTOPRAZOLE 40 MG TABLET.DR PO SCH (09:22)
[2021-05-15] MEDS: THIAMINE HCL 100 MG TABLET PO SCH (09:22)
[2021-05-15] MEDS: HEPARIN SODIUM, PORCINE 5000 UNITS/1 ML VIAL SQ SCH ×2 (09:23→21:21)
[2021-05-15] MEDS: POTASSIUM CHLORIDE 20 MEQ TAB.PRT.SR PO SCH ×3 (09:29→12:30)
[2021-05-15 09:34] LABS: CREATINE KINASE, TOTAL 912 U/L (39-308)
[2021-05-15] MEDS: MORPHINE SULFATE INJ 4 MG/ML DISP.SYRIN IV PRN ×2 (15:14→21:15)
--- NOTE | 2021-05-15 15:14 | NUR ---
RN NOTE Patient complained of generalized pain 10/24. CASSANDRA Deluca translated for patient. PRN Morphine given. Will continue to monitor patient.
[2021-05-15 16:00] VITALS: BP 136/87
--- NOTE | 2021-05-15 19:15 | NUR ---
MS RN OPENING NOTE: RECEIVED REPORT AT PATIENT'S BEDSIDE. PATIENT ALERT AND ORIENTED X1. SRI LANKAN SPEAKING ONLY. DURING TRANSLATION, PATIENT RESPONSES ARE DELAYED AND FEW. FLAT AFFECT. NAD AND VSS AT THIS TIME. F/C IN PLACE, PATENT AND DRAINING JYOTI, CLEAR COLORED URINE. HOB ELEVATED TO FOWLERS POSITION. REPLACED NC PATIENT TAKES IT OFF OCCASIONALLY PER REPORT. SPO2 93% ON RA AND 96% ON 2L O2 VIA NC. IV RUNNING FLUIDS WITHOUT S/SX OF INFILTRATION/ERYTHEMA TO OR SURROUNDING INSERTION SITE TO R HAND. DRESSING C/D/I. BED IN LOW/LOCKED POSITION. BED ALARM ON. SIDE RAILS UP X2. CALL LIGHT WITHIN REACH.
--- NOTE | 2021-05-15 19:43 | NUR ---
MS RN CLOSING NOTE Patient in bed, resting. A/O x 1, Burundian speaking. On O2 at 2 LPM via NC, breathing evenly and unlabored. No SOB or s/s of distress noted. IV access on Right hand #20G infusing NS at 75 ml/hr. Way catheter in place draining to an taniya colored urine with an output of 1900 cc. Due meds given. Safety precautions in place: bed in low, locked position; siderails up x 2; call light within reach. Will continue to monitor.
[2021-05-15 20:00] VITALS: BP 137/83
[2021-05-15 20:20] VITALS: BP 137/83
[2021-05-16] MEDS: MORPHINE SULFATE INJ 4 MG/ML DISP.SYRIN IV PRN ×3 (01:57→19:46)
[2021-05-16] MEDS: LORAZEPAM INJ 2 MG/ML VIAL IV PRN ×2 (05:53→23:31)
[2021-05-16] MEDS: ERYTHROMYCIN BASE OPHTH 3.5 GM TUBE EACHEYE SCH ×2 (06:07→13:28)
[2021-05-16] MEDS: IV NS 0.9% 1,000 ML IV SCH (06:53)
[2021-05-16 06:58] LABS: BASOPHILS % (AUTO) 0.2 % (0.0-2.0); EOSINOPHILS % (AUTO) 2.8 % (0.0-6.0); HEMATOCRIT 37 % (39-51); LYMPHOCYTES # (AUTO) 1.4 K/uL (0.8-4.8); MEAN CORPUSCULAR HGB CONC 33 g/dl (31.0-36.0); MEAN CORPUSCULAR VOLUME 93 fL (80-96); MONOCYTES # (AUTO) 1.4 K/uL (0.1-1.30); MONOCYTES % (AUTO) 7.2 % (2.0-12.0); NEUTROPHILS # (AUTO) 16.2 K/uL (1.8-8.9); NEUTROPHILS % (AUTO) 82.8 % (43.0-81.0); PLATELET COUNT (AUTO) 364 K/uL (150-450); RED BLOOD CELL COUNT(AUTO) 3.97 MIL/uL (4.5-6.0); WHITE BLOOD COUNT (AUTO) 19.6 K/uL (4.3-11.0)
--- NOTE | 2021-05-16 07:22 | NUR ---
MS RN OPENING NOTE RECEIVED PATIENT'S BEDSIDE. PATIENT ALERT AND ORIENTED X1. BOLIVIAN SPEAKING ONLY. ARCHER CHAIR IN PLACE, PATENT AND DRAINING JYOTI, CLEAR COLORED URINE. HOB ELEVATED TO FOWLERS POSITION. PATIENTON NASAL CANULA WITH OXYGEN AT 2LPM SATURATING AT 93 % BUT PATIENT USUALLY REMOVES IT. PATIENT WITH IV ACCESS ON THE RIGHT HAND 2 22, WITH IV FLUID OF NS RUNNING AT 75ML/HR.PATENTAND INTACT. SAFETY MEASURES ENSURED WITH BED IN LOW, LOCKED POSITION, BED ALARM ON, SIDE RAILS UP X2. CALL LIGHT WITHIN REACH. WILL CONTINUE TO MONITOR PATIENT.
[2021-05-16 07:25] LABS: MAGNESIUM 2.2 mg/dL (1.8-2.4); POTASSIUM 3.3 mmol/L (3.5-5.1)
--- NOTE | 2021-05-16 07:37 | NUR ---
MS RN CLOSING NOTE: PATIENT IN BE, EYES CLOSED. EASILY AROUSED BY TOUCH. PATIENT IN NAD AND VSS AT THIS TIME. NO CHANGE IN PATIENT'S MENTATION FROM START OF SHIFT. PATIENT MEDICATED THROUGHOUT THE NIGHT PER PRN ORDERS FOR S/SX OF PAIN AND ANXIETY WITH EFFECTIVE RESULTS. REPORTED OFF TO AM SHIFT RN.
[2021-05-16 08:00] VITALS: BP 133/76
[2021-05-16] MEDS: THIAMINE HCL 100 MG TABLET PO SCH (08:28)
[2021-05-16] MEDS: PANTOPRAZOLE 40 MG TABLET.DR PO SCH (08:28)
[2021-05-16] MEDS: HEPARIN SODIUM, PORCINE 5000 UNITS/1 ML VIAL SQ SCH (08:33)
[2021-05-16] MEDS: POTASSIUM CHLORIDE 20 MEQ TAB.PRT.SR PO SCH ×3 (10:33→13:28)
[2021-05-16 16:00] VITALS: BP 136/86
--- NOTE | 2021-05-16 19:00 | NUR ---
MS RN closing NOTE PATIENT'S BEDSIDE. PATIENT ALERT AND ORIENTED X1. UPPER SORBIAN SPEAKING ONLY. ARCHER CHAIR IN PLACE, PATENT AND DRAINING JYOTI, CLEAR COLORED URINE. HOB ELEVATED TO FOWLERS POSITION. PATIENTON NASAL CANULA WITH OXYGEN AT 2LPM SATURATING AT 93 % BUT PATIENT USUALLY REMOVES IT. PATIENT WITH IV ACCESS ON THE RIGHT HAND 2 22, WITH IV FLUID OF NS RUNNING AT 75ML/HR.PATENTAND INTACT. SAFETY MEASURES ENSURED WITH BED IN LOW, LOCKED POSITION, BED ALARM ON, SIDE RAILS UP X2. CALL LIGHT WITHIN REACH. WILL ENDORSE PATIENT FOR CONTINUITY OF CARE
--- NOTE | 2021-05-16 19:25 | NUR ---
MS RN OPENING NOTE: RECEIVED REPORT AT PATIENT'S BEDSIDE. PATIENT ALERT AND ORIENTED X1. SOUTH KOREAN SPEAKING ONLY. PATIENT VERBALIZES HE'S CONFUSED DURING TRANSLATION. OFTEN PROVIDES 'BLANK STARE' WHEN COMMUNICATED WITH IN HIS TAZLINA TONGUE. AT TIMES IS ABLE TO ARTICULATE HE IS IN PAIN WELL PROVIDING NON-VERBAL RESPONSES (EG. FACIAL GRIMACING, RESTLESSNESS). C/O PAIN, VSS AT THIS TIME. F/C IN PLACE, PATENT AND DRAINING JYOTI, CLEAR COLORED URINE. HOB ELEVATED TO FOWLERS POSITION. REPLACED NC PATIENT TAKES IT OFF OCCASIONALLY PER REPORT. SPO2 93% ON RA AND 96% ON 2L O2 VIA NC. L HAND IV [address], WITHOUT S/SX OF INFILTRATION/ERYTHEMA TO OR SURROUNDING INSERTION SITE. DRESSING C/D/I. BED IN LOW/LOCKED POSITION. BED ALARM ON. SIDE RAILS UP X2. CALL LIGHT WITHIN REACH.
--- NOTE | 2021-05-16 19:45 | NUR ---
MS RN NOTE: ADMINISTERED MORPHINE 4MG IVP PER PRN ORDER FOR S/SX AND C/O OF PAIN 11/24.
[2021-05-16 20:00] VITALS: BP 135/73
[2021-05-17] MEDS: MORPHINE SULFATE INJ 4 MG/ML DISP.SYRIN IV PRN (03:54)
--- NOTE | 2021-05-17 04:04 | NUR ---
MS RN NOTE: DURING ROUNDS, PATIENT AWAKE AND SPOKE TO THIS NURSE IN DJIBOUTIAN, "WHERE IS THE OTHER LADY?" (REFERRING TO THE CONCESSIONS MANAGER). PATIENT STATES HE SPEAKS A LITTLE DJIBOUTIAN. WHEN THIS NURSE ASKED, "DO YOU KNOW WHERE YOU ARE?" HE SAID, "[place]?" THIS NURSE TOLD PATIENT WHAT CITY AND PLACE HE IS IN, WHY HE IS HERE AND HOW HE GOT HERE. PATIENT VERBALIZES UNDERSTANDING AND STATES, "WHAT DO I DO NOW?" THIS NURSE EXPLAINED THE PROCESS OF HOSPITALIZATION. PATIENT VERBALIZES UNDERSTANDING REGARDING THE DOCTORS EVALUATING HIS LABS AND ASSESSING HIM WHEN THE MD ROUNDS LATER IN THE MORNING. PATIENT'S L HAND IV BECAME DISLODGED SHORTLY AFTER MORPHINE IVP WAS ADMINISTERED. 2 IV RE-INSERTION ATTEMPTS FAILED.
[2021-05-17 05:59] LABS: BASOPHILS # (AUTO) 0.1 K/uL (0.0-0.2); BASOPHILS % (AUTO) 0.5 % (0.0-2.0); EOSINOPHILS % (AUTO) 1.8 % (0.0-6.0); HEMATOCRIT 36 % (39-51); LYMPHOCYTES # (AUTO) 1.2 K/uL (0.8-4.8); LYMPHOCYTES % (AUTO) 6.2 % (20.0-44.0); MEAN CORPUSCULAR HGB CONC 33 g/dl (31.0-36.0); MEAN CORPUSCULAR VOLUME 93 fL (80-96); MONOCYTES # (AUTO) 1.3 K/uL (0.1-1.30); MONOCYTES % (AUTO) 6.5 % (2.0-12.0); NEUTROPHILS # (AUTO) 16.7 K/uL (1.8-8.9); PLATELET COUNT (AUTO) 411 K/uL (150-450); RED BLOOD CELL COUNT(AUTO) 3.93 MIL/uL (4.5-6.0); WHITE BLOOD COUNT (AUTO) 19.7 K/uL (4.3-11.0)
[2021-05-17] MEDS: PANTOPRAZOLE 40 MG TABLET.DR PO SCH (06:51)
--- NOTE | 2021-05-17 07:07 | NUR ---
MS RN CLOSING NOTE: PATIENT AWAKE, ALERT AND ORIENTED X2. PATIENT'S SPEECH IS CLEAR, SPEAKS AND UNDERSTANDS SOME DANISH. PATIENT STATING THAT HE'S HUNGRY. DRINKING CLEAR FLUIDS INDEPENDENTLY AND WITHOUT COMPLICATION. NAD AND VSS AT THIS TIME. PATIENT STATES HE HAS PAINS WHEN HE BREATHES. ENCOURAGED AND DEMONSTRATED DEEP BREATHING AND COUGHING TECHNIQUES. PATIENT RETURNS DEMONSTRATION. F/C IN PLACE, PATENT AND DRAINING JYOTI, CLEAR COLORED URINE. HOB ELEVATED TO FOWLERS POSITION. STABLE ON O2 @2LPM VIA NC. UNABLE TO ESTABLISH NEW IV ACCESS. WILL ENDORSE TO ONCOMING SHIFT. BED IN LOW/LOCKED POSITION. BED ALARM ON. SIDE RAILS UP X2. CALL LIGHT WITHIN REACH.
[2021-05-17 07:29] LABS: ALBUMIN 1.8 g/dL (3.4-5.0); BILIRUBIN,DIRECT 0.4 mg/dL (0.0-0.2); BILIRUBIN,TOTAL 0.8 mg/dL (0.2-1.0); CALCIUM, SERUM 8.4 mg/dL (8.5-10.1); CREATININE 1.1 mg/dL (0.6-1.3); POTASSIUM 3.1 mmol/L (3.5-5.1); TOTAL PROTEIN, SERUM 6.4 g/dL (6.4-8.2)
--- NOTE | 2021-05-17 07:30 | NUR ---
MS RN OPENING NOTES RECEIVED PATIENT ON BED, AWAKE AND A/O X1-2. ON O2 AT 2LPM VIA NASAL CANNULA TOLERATING WELL. NO SOB NOTED. NOT IN DISTRESS. WITH NO IV ACCESS AT THIS TIME. PATIENT PULLED OUT HIS IV LINE. WILL REINSERT. WITH ARCHER CATHETER IN PLACED DRAINING CLEAR JYOTI COLORED URINE. SAFETY MEASURES IN PLACED. CALL LIGHT WITHIN REACH. BED ON LOWEST LOCKED POSITION, SIDE RAILS UP X2. WILL CONTINUE TO MONITOR.
[2021-05-17 08:00] VITALS: BP 135/84
[2021-05-17] MEDS: THIAMINE HCL 100 MG TABLET PO SCH (08:58)
[2021-05-17] MEDS: POTASSIUM CHLORIDE 20 MEQ TAB.PRT.SR PO SCH ×2 (10:16→11:17)
[2021-05-17 10:30] LABS: EOSINOPHILS % (MANUAL) 1 % (0-4); LYMPHOCYTES % (MANUAL) 10 % (16-48); MONOCYTES % (MANUAL) 7 % (0-11.0); NEUTROPHILS % (MANUAL) 82 (42-76)
[2021-05-17 16:00] VITALS: BP 143/85
--- NOTE | 2021-05-17 18:36 | NUR ---
MS RN CLOSING NOTES PATIENT ON BED, AWAKE AND A/O X1-2. ON O2 AT 2LPM VIA NASAL CANNULA TOLERATING WELL. NO SOB NOTED. NOT IN DISTRESS. WITH IV ACCESS AT RIGHT FOREARM G20 SALINE LOCKED, PATENT AND INTACT. WITH ARCHER CATHETER IN PLACED DRAINING CLEAR JYOTI COLORED URINE AT 3,300ML. SAFETY MEASURES IN PLACED. CALL LIGHT WITHIN REACH. BED ON LOWEST LOCKED POSITION, SIDE RAILS UP X2. WILL ENDORSE TO NEXT SHIFT FOR ANGE.
--- NOTE | 2021-05-17 19:45 | NUR ---
RN OPENING NOTES RECEIVED PT IN BED, AWAKE. AOx2-3, ABLE TO MAKE NEEDS KNOWN. ON NC 2LPM AND TOLERATING WELL. NO SOB NOTED. NO S/SX OF RESPIRATORY DISTRESS NOTED. IV ACCESS IN RFA #20. IV IS INTACT, PATENT, AND FLUSHING WELL. SAFETY PRECAUTIONS IN PLACE: BED IN LOWEST, LOCKED POSITION, SIDERAILS UPx2, AND BRAKES ON. TABLE AND CALL LIGHT WITHIN REACH. WILL CONTINUE TO MONITOR.
[2021-05-17 20:00] VITALS: BP 110/60
[2021-05-17] MEDS ORDERED: ACETAMINOPHEN 650 MG/20.3 ML UDC PO PRN (20:00)
[2021-05-18 06:39] LABS: BASOPHILS % (AUTO) 0.1 % (0.0-2.0); EOSINOPHILS % (AUTO) 1.5 % (0.0-6.0); HEMATOCRIT 35 % (39-51); HEMOGLOBIN 11.7 g/dL (13.5-17.5); LYMPHOCYTES # (AUTO) 1.4 K/uL (0.8-4.8); LYMPHOCYTES % (AUTO) 7.4 % (20.0-44.0); MEAN CORPUSCULAR HGB CONC 33 g/dl (31.0-36.0); MEAN CORPUSCULAR VOLUME 92 fL (80-96); MONOCYTES # (AUTO) 1.1 K/uL (0.1-1.30); MONOCYTES % (AUTO) 5.8 % (2.0-12.0); NEUTROPHILS # (AUTO) 16.2 K/uL (1.8-8.9); NEUTROPHILS % (AUTO) 85.2 % (43.0-81.0); PLATELET COUNT (AUTO) 469 K/uL (150-450); RED BLOOD CELL COUNT(AUTO) 3.81 MIL/uL (4.5-6.0)
--- NOTE | 2021-05-18 07:02 | NUR ---
RN CLOSING NOTES PT IN BED, AWAKE. AOx2-3, ABLE TO MAKE NEEDS KNOWN. ON NC 2LPM AND TOLERATING WELL. NO SOB NOTED. NO S/SX OF RESPIRATORY DISTRESS NOTED. IV ACCESS IN RAC #22. IV IS INTACT, PATENT, AND FLUSHING WELL. ALL NEEDS MET. PT KEPT CLEAN AND DRY. SAFETY PRECAUTIONS IN PLACE: BED IN LOWEST, LOCKED POSITION, SIDERAILS UPx2, AND BRAKES ON. TABLE AND CALL LIGHT WITHIN REACH. WILL ENDORSE TO ONCOMING SHIFT FOR ANGE.
[2021-05-18 07:21] LABS: ALBUMIN 1.8 g/dL (3.4-5.0); BILIRUBIN,DIRECT 0.4 mg/dL (0.0-0.2); BILIRUBIN,TOTAL 0.8 mg/dL (0.2-1.0); CALCIUM, SERUM 8.7 mg/dL (8.5-10.1); POTASSIUM 3.5 mmol/L (3.5-5.1); TOTAL PROTEIN, SERUM 6.6 g/dL (6.4-8.2)
--- NOTE | 2021-05-18 07:30 | NUR ---
MS RN OPENING NOTES RECEIVED PATIENT ON BED AWAKE AND A/O X1-2. ON O2 AT 2LPM VIA NASAL CANNULA TOLERATING WELL. NO SOB NOTED. NOT IN DISTRESS. WITH NO COMPLAINTS OF PAIN AT THIS TIME. WITH IV ACCESS AT RIGHT AC G22 SALINE LOCKED, PATENT AND INTACT. SAFETY MEASURES IN PLACED. CALL LIGHT WITHIN REACH. BED ON LOWEST LOCKED POSITION, SIDE RAILS UP X2. WILL CONTINUE TO MONITOR.
[2021-05-18 08:00] VITALS: BP 125/87
[2021-05-18] MEDS: PANTOPRAZOLE 40 MG TABLET.DR PO SCH (08:15)
[2021-05-18] MEDS: THIAMINE HCL 100 MG TABLET PO SCH (08:15)
[2021-05-18 16:00] VITALS: BP 125/76
--- NOTE | 2021-05-18 18:30 | NUR ---
MS RN CLOSING NOTES PATIENT ON BED AWAKE AND A/O X1-2. ON O2 AT 2LPM VIA NASAL CANNULA TOLERATING WELL. NO SOB NOTED. NOT IN DISTRESS. WITH NO COMPLAINTS OF PAIN AT THIS TIME. WITH IV ACCESS AT RIGHT AC G22 SALINE LOCKED, PATENT AND INTACT. SAFETY MEASURES IN PLACED. CALL LIGHT WITHIN REACH. BED ON LOWEST LOCKED POSITION, SIDE RAILS UP X2. WILL ENDORSE TO NEXT SHIFT FOR ANGE.
--- NOTE | 2021-05-18 19:37 | NUR ---
RN OPENING NOTES RECEIVED PT IN BED, AWAKE. AOx2-3, ABLE TO MAKE NEEDS KNOWN. ON 2LPM VIA NASAL CANNULA AND TOLERATING WELL. NO SOB NOTED. NO S/SX OF RESPIRATORY DISTRESS NOTED. IV ACCESS IN RFA #22G. IV IS INTACT, PATENT, AND FLUSHING WELL. SAFETY PRECAUTIONS IN PLACE: BED IN LOWEST, LOCKED POSITION, SIDERAILS UPx2, AND BRAKES ON. TABLE AND CALL LIGHT WITHIN REACH. WILL CONTINUE TO MONITOR.
[2021-05-18 20:00] VITALS: BP 135/95
[2021-05-19] MEDS: PANTOPRAZOLE 40 MG TABLET.DR PO SCH (06:36)
--- NOTE | 2021-05-19 06:45 | NUR ---
RN CLOSING NOTES PT IN BED, AWAKE. AOx2-3, ABLE TO MAKE NEEDS KNOWN. NOTES SAY PATIENT IS CONFUSED BUT PATIENT CHOOSES WHEN TO REPLY. PT IS ABLE TO VERBALIZE NEEDS. ON 2LPM VIA NASAL CANNULA AND TOLERATING WELL. NO SOB NOTED. NO S/SX OF RESPIRATORY DISTRESS NOTED. IV ACCESS IN RFA #22G. IV IS INTACT, PATENT, AND FLUSHING WELL. ALL NEEDS MET. PT KEPT CLEAN AND DRY. SAFETY PRECAUTIONS IN PLACE: BED IN LOWEST, LOCKED POSITION, SIDERAILS UPx2, AND BRAKES ON. TABLE AND CALL LIGHT WITHIN REACH. WILL ENDORSE TO ONCOMING SHIFT FOR ANGE.
[2021-05-19 07:25] LABS: BASOPHILS % (AUTO) 0.1 % (0.0-2.0); EOSINOPHILS % (AUTO) 0.7 % (0.0-6.0); HEMATOCRIT 35 % (39-51); HEMOGLOBIN 11.8 g/dL (13.5-17.5); LYMPHOCYTES # (AUTO) 1.2 K/uL (0.8-4.8); LYMPHOCYTES % (AUTO) 5.6 % (20.0-44.0); MEAN CORPUSCULAR HGB CONC 33 g/dl (31.0-36.0); MEAN CORPUSCULAR VOLUME 92 fL (80-96); MONOCYTES # (AUTO) 1.3 K/uL (0.1-1.30); MONOCYTES % (AUTO) 6.1 % (2.0-12.0); NEUTROPHILS % (AUTO) 87.5 % (43.0-81.0); PLATELET COUNT (AUTO) 527 K/uL (150-450); RED BLOOD CELL COUNT(AUTO) 3.83 MIL/uL (4.5-6.0); WHITE BLOOD COUNT (AUTO) 20.6 K/uL (4.3-11.0)
[2021-05-19 07:43] LABS: ALBUMIN 1.9 g/dL (3.4-5.0); BILIRUBIN,DIRECT 0.2 mg/dL (0.0-0.2); BILIRUBIN,TOTAL 0.7 mg/dL (0.2-1.0); CALCIUM, SERUM 8.3 mg/dL (8.5-10.1); POTASSIUM 3.6 mmol/L (3.5-5.1); TOTAL PROTEIN, SERUM 6.9 g/dL (6.4-8.2)
[2021-05-19 08:00] VITALS: BP 123/67
[2021-05-19] MEDS: THIAMINE HCL 100 MG TABLET PO SCH (08:21)
[2021-05-19] MEDS ORDERED: POTASSIUM CHLORIDE 20 MEQ TAB.PRT.SR PO SCH (08:30)
[2021-05-19 09:53] LABS: BAND % (MANUAL) 2 % (0.0-5.0); EOSINOPHILS % (MANUAL) 2 % (0-4); LYMPHOCYTES % (MANUAL) 5 % (16-48); MONOCYTES % (MANUAL) 3 % (0-11.0); NEUTROPHILS % (MANUAL) 88 (42-76)
[2021-05-19 16:00] VITALS: BP 140/100
[2021-05-19] MEDS: IBUPROFEN 600 MG TABLET PO PRN (19:09)
--- NOTE | 2021-05-19 19:30 | NUR ---
MS RN CLOSING NOTES PATIENT ON BED AWAKE AND A/O X1-2. ON O2 AT 2LPM VIA NASAL CANNULA TOLERATING WELL. NO SOB NOTED. NOT IN DISTRESS. WITH NO COMPLAINTS OF PAIN AT THIS TIME. WITH IV ACCESS AT LEFT HAND G20 SALINE LOCKED, PATENT AND INTACT. SAFETY MEASURES IN PLACED. CALL LIGHT WITHIN REACH. BED ON LOWEST LOCKED POSITION, SIDE RAILS UP X2. WILL ENDORSE TO NEXT SHIFT FOR ANGE.
--- NOTE | 2021-05-19 19:40 | NUR ---
MS RN NOTES RECEIVED LAYING ON BED,NOTED PALE LOOKING AND PERSPIRING,BLOOD SUGAR WAS CHECKED AND IT WAS 205.DENIES PAIN,BLOOD PRESSURE ON THE LOW SIDE AT 86/45,TRENDELENBURG POSITION INITIATED AND RECHECKED BLOOD PRESSURE AFTER A HOUR AND IT WAS 92/45.ACCIDENTALLY PULLED SALINE LOCK ON RIGHT AC.NEW SALINE LOCK PLACE ON LEFT WRIST #20.WITH ARCHER CATH IN PLACE DRAINING YELLOWISH URINE OUTPUT.FALL PRECAUTION OBSERVED.BED ALARM TRIGGERED,BED ON LOWEST POSITION AND LOCKED,CALL LIGHT IN REACH,NEEDS ANTICIPATED.
[2021-05-19 20:00] VITALS: BP 92/45
--- NOTE | 2021-05-19 20:40 | NUR ---
MS RN NOTES NS 1LITER HUNG OPEN WIDE BOLUS.
--- NOTE | 2021-05-19 20:45 | NUR ---
MS RN NOTES HOSPITALIST DR SIMS MADE AWARE OF PATIENT LOW BLOOD PRESSURE,WITH ORDER TO GIVE 1 LITER OF NS BOLUS,RE CHECK POST BOLUS AND NOTIFY HIM,NOTED AND CARRIED OUT.
[2021-05-19] MEDS ORDERED: IV NS 0.9% 1,000 ML IV ONE (21:00)
--- NOTE | 2021-05-19 21:40 | NUR ---
MS RN NOTES NS BOLUS COMPLETED,NO S/S OF FLUID OVERLOAD NOTED.
--- NOTE | 2021-05-19 22:15 | NUR ---
MS RN NOTES LATEST BLOOD PRESSURE POST BOLUS 97/60,PULSE-113,DR SIMS MADE AWARE,NO FURTHER ORDERS.
[2021-05-19 22:45] VITALS: BP 97/60
--- NOTE | 2021-05-20 02:00 | NUR ---
MS RN NOTES SLEEPING,KEPT WARM AND COMFORTABLE.
[2021-05-20 04:20] VITALS: BP 93/56
--- NOTE | 2021-05-20 06:31 | NUR ---
MS RN NOTES FAIRLY RESTED,NOT IN ANY FORM OF DISTRESS,LATEST BP 93/56,PULSE-103.GOING FOR CT LUMBAR SPINE WITH CONTRAST TODAY,CONSENT TO BE SIGNED BY TWO MD,PATIENT IS CONFUSED AND NO RELATIVES ON FILE.NO FALL,NO INJURY,BED ALARM,CALL LIGHT IN REACH,NEEDS ATTENDED.
[2021-05-20 07:58] LABS: BASOPHILS % (AUTO) 0.1 % (0.0-2.0); EOSINOPHILS % (AUTO) 0.4 % (0.0-6.0); HEMATOCRIT 40 % (39-51); LYMPHOCYTES # (AUTO) 0.7 K/uL (0.8-4.8); LYMPHOCYTES % (AUTO) 2.5 % (20.0-44.0); MEAN CORPUSCULAR HGB CONC 33 g/dl (31.0-36.0); MEAN CORPUSCULAR VOLUME 93 fL (80-96); MONOCYTES # (AUTO) 1.2 K/uL (0.1-1.30); MONOCYTES % (AUTO) 4.3 % (2.0-12.0); NEUTROPHILS # (AUTO) 25.3 K/uL (1.8-8.9); NEUTROPHILS % (AUTO) 92.7 % (43.0-81.0); PLATELET COUNT (AUTO) 408 K/uL (150-450); RED BLOOD CELL COUNT(AUTO) 4.26 MIL/uL (4.5-6.0); WHITE BLOOD COUNT (AUTO) 27.3 K/uL (4.3-11.0)
[2021-05-20 08:00] VITALS: BP 107/65
--- NOTE | 2021-05-20 08:04 | NUR ---
RN Opening Note Patient received in bed, AO x 2, does no appears distress, able to responds all stimuli. Skin is warm to touch, keep clean/dry, intact IV site. Kept elevated HOB for ensure air/aspiration precaution and remains lower position of the bed. call light within reach, will continue to monitor. Patient received CT of lumber spine with contrast, and obtained consent sign by Dr. Kovacs.
[2021-05-20] MEDS: THIAMINE HCL 100 MG TABLET PO SCH (08:10)
[2021-05-20] MEDS: PANTOPRAZOLE 40 MG TABLET.DR PO SCH (08:11)
[2021-05-20 08:47] LABS: BILIRUBIN,DIRECT 0.5 mg/dL (0.0-0.2); MAGNESIUM 2.2 mg/dL (1.8-2.4); PHOSPHORUS 4.6 mg/dL (2.5-4.9); POTASSIUM 4.1 mmol/L (3.5-5.1); TOTAL PROTEIN, SERUM 6.6 g/dL (6.4-8.2)
--- NOTE | 2021-05-20 10:00 | NUR ---
Patient left to the CT lumber spine in stable condition.
[2021-05-20] MEDS ORDERED: CT SWABBABLE VALVE TRANS SET 1 EA INFUS.SET MC ONE (10:38)
[2021-05-20] MEDS ORDERED: IV NS 0.9% 250 ML IV ONE (10:38)
[2021-05-20] MEDS ORDERED: IOHEXOL-300 100 ML VIAL IV ONE (10:38)
[2021-05-20 11:10] LABS: ALBUMIN 1.8 g/dL (3.4-5.0); CALCIUM, SERUM 7.7 mg/dL (8.5-10.1); CREATININE 1.7 mg/dL (0.6-1.3)
[2021-05-20 11:54] LABS: BAND % (MANUAL) 1 % (0.0-5.0); LYMPHOCYTES % (MANUAL) 4 % (16-48); MONOCYTES % (MANUAL) 6 % (0-11.0); NEUTROPHILS % (MANUAL) 89 (42-76)
--- NOTE | 2021-05-20 12:00 | NUR ---
Patient back from CT in stable condition, no distress observed.
--- NOTE | 2021-05-20 13:00 | NUR ---
Patient noticed right side hydropneumothorax from CT result, also patient has no appetite, had vomited after lunch. Informed MD and patient started NPO. Continue to monitor.
[2021-05-20 16:00] VITALS: BP 110/72
[2021-05-20] MEDS ORDERED: DOSE PER PHARMACY (MD SPECIFY MEDICATION) 1 EA IV PRN (16:00)
--- NOTE | 2021-05-20 16:00 | NUR ---
Patient received new order US guided thoracentesis by Dr. Kovacs. Patient kept NPO, and continue to oxygen on via NC at 2Ls. V/S: 99.0, 110/72, 78, 94%.
[2021-05-20] MEDS ORDERED: VANCOMYCIN 1.25 GM in IV D5W 250 ML IV SCH (17:00)
[2021-05-20] MEDS ORDERED: MEROPENEM 500 MG in IV NS 0.9% 50 ML IV SCH (17:00)
--- NOTE | 2021-05-20 18:44 | NUR ---
RN Closing Note Patient is resting in bed, kept NPO. No distress observed. Respiratory even and unlabored with oxygen at 2Ls, but patient attempting take out oxygen. Skin is warm to touch, keep clean/dry, intact IV site. Kept elevated HOB for ensure airway and aspiration precaution, Also lower position of the bed for safety. Patient has order US guided thoracentesis tomorrow morning due to pneumonia thorax. Call light within reach, all needs met. will endorse rn shift mgr.
[2021-05-20 19:35] LABS: BILIRUBIN,URINE NEGATIVE (NEGATIVE); COLOR,URINE YELLOW (YELLOW); LEUKOCYTE ESTERASE ,URINE NEGATIVE (NEGATIVE); NITRITE, URINE NEGATIVE (NEGATIVE); PROTEIN,URINE 30 mg/dl (NEGATIVE); UGLUCOSE NEGATIVE (NEGATIVE)
[2021-05-20 19:58] LABS: BACTERIA,URINE RARE /HPF (None Seen); MUCUS,URINE Few /LPF (None Seen); RBC,URINE 51-80 /HPF (0-2); SQUAMOUS EPITHELIAL CELL,UR 0-2 /HPF (None Seen); URINE AMORPHOUS URATE Many /HPF (None Seen); WBC,URINE 0-2 /HPF (0-3)
[2021-05-20 20:00] VITALS: BP 118/68
[2021-05-21] VITALS (7 sets, daily range): BP systolic 110–135; BP diastolic 60–74
--- NOTE | 2021-05-21 06:10 | NUR ---
MS RN NOTES AWAKE & RESPONSIVE. CONFUSED AND FORGETFUL AT TIMES. NOT IN ANY DISTRESS. NO SOB NOTED. DENIES ANY PAIN OR DISCOMFORT AT THIS TIME. WITH IV-HL PATENT & INTACT. AM CARE DONE. MONITORED ACCORDINGLY. KEPT ON ASPIRATION PREC AAT. CALL LIGHT WITHIN REACH. BED IN LOWEST POSITION. SR UP X 3 WITH BED ALARM ON FOR SAFETY. WILL ENDORSE TO NEXT SHIFT.
[2021-05-21 06:47] LABS: BASOPHILS # (AUTO) 0.2 K/uL (0.0-0.2); BASOPHILS % (AUTO) 0.6 % (0.0-2.0); HEMATOCRIT 37 % (39-51); HEMOGLOBIN 12.3 g/dL (13.5-17.5); LYMPHOCYTES # (AUTO) 0.8 K/uL (0.8-4.8); LYMPHOCYTES % (AUTO) 2.7 % (20.0-44.0); MEAN CORPUSCULAR HGB CONC 34 g/dl (31.0-36.0); MEAN CORPUSCULAR VOLUME 92 fL (80-96); MONOCYTES # (AUTO) 1.4 K/uL (0.1-1.30); MONOCYTES % (AUTO) 4.7 % (2.0-12.0); NEUTROPHILS # (AUTO) 27.4 K/uL (1.8-8.9); PLATELET COUNT (AUTO) 467 K/uL (150-450); RED BLOOD CELL COUNT(AUTO) 4.01 MIL/uL (4.5-6.0); WHITE BLOOD COUNT (AUTO) 29.8 K/uL (4.3-11.0)
[2021-05-21 07:10] LABS: CALCIUM, SERUM 8.3 mg/dL (8.5-10.1); CREATININE 1.7 mg/dL (0.6-1.3); POTASSIUM 3.9 mmol/L (3.5-5.1)
[2021-05-21] MEDS: PANTOPRAZOLE 40 MG TABLET.DR PO SCH (07:30)
--- NOTE | 2021-05-21 07:30 | NUR ---
MS RN OPENING NOTES RECEIVED PATIENT ON BED AWAKE AND A/O X2-3. ON O2 AT 3LPM VIA NASAL CANNULA TOLERATING WELL. NO SOB NOTED. NOT IN DISTRESS. WITH NO COMPLAINTS OF PAIN AT THIS TIME. WITH IV ACCESS AT LEFT WRIST G20 SALINE LOCKED, PATENT AND INTACT. PATIENT IS FOR CT GUIDED CHEST TUBE PLACEMENT AND DRAINAGE. PATIENT IS ON NPO SINCE MIDNIGHT. SAFETY MEASURES IN PLACED. CALL LIGHT WITHIN REACH. BED ON LOWEST LOCKED POSITION, SIDE RAILS UP X2. WILL CONTINUE TO MONITOR.
[2021-05-21] MEDS: THIAMINE HCL 100 MG TABLET PO SCH (09:00)
[2021-05-21] MEDS ORDERED: MEROPENEM 500 MG in IV NS 0.9% 50 ML IV SCH (09:00)
--- NOTE | 2021-05-21 10:50 | NUR ---
RN NOTES RECEIVED PATIENT FROM CT AWAKE AND A/O X2-3 WITH CHEST TUBE DRAINAGE CONNECTED TO WATER SEAL CHAMBER WITH PRESENCE OF YELLOWISH FLUID FROM THE LUNGS AT THE LEVEL OF 1300. ENDORSED TO HAVE REMOVED 200CC + 1300CC TO A TOTAL OF 1500ML OF LUNG FLUID FROM THE RIGHT LUNG. 50ML OF LUNG FLUID SENT TO THE LAB FOR STUDIES. CHECKED VITAL SIGNS: BP-112/70, HR-132, TEMP-99.7, O2 SAT-93% AND RR-19. WILL CONTINUE TO MONITOR.
[2021-05-21 11:53] LABS: NEUTROPHILS % (MANUAL) 78 (42-76)
[2021-05-21 11:54] LABS: BAND % (MANUAL) 15 % (0.0-5.0); LYMPHOCYTES % (MANUAL) 3 % (16-48); MONOCYTES % (MANUAL) 4 % (0-11.0)
[2021-05-21] MEDS: MEROPENEM 1 G in IV NS 0.9% 100 ML IV SCH ×2 (12:50→22:07)
[2021-05-21] MEDS: VANCOMYCIN 1.5 GM in IV D5W 500ml IV SCH (18:12)
--- NOTE | 2021-05-21 18:42 | NUR ---
MS RN CLOSING NOTES PATIENT ON BED AWAKE AND A/O X2-3. ON O2 AT 3LPM VIA NASAL CANNULA TOLERATING WELL. NO SOB NOTED. NOT IN DISTRESS. WITH NO COMPLAINTS OF PAIN AT THIS TIME. WITH IV ACCESS AT LEFT WRIST G20 SALINE LOCKED, PATENT AND INTACT. STATUS POST CT GUIDED CHEST TUBE PLACEMENT AND DRAINAGE. WITH FR. 12 PIGTAIL DRAINAGE CATHETER AT RIGHT PLEURAL SPACE WITH AN OUTPUT OF 1550ML. SAFETY MEASURES IN PLACED. CALL LIGHT WITHIN REACH. BED ON LOWEST LOCKED POSITION, SIDE RAILS UP X2. WILL ENDORSE TO NEXT SHIFT FOR ANGE.
--- NOTE | 2021-05-21 19:30 | NUR ---
MS RN OPENING NOTES PATIENT ON BED AWAKE AND A/O X2-3. ON O2 AT 3LPM VIA NASAL CANNULA TOLERATING WELL. NO SOB NOTED. NOT IN DISTRESS. WITH NO COMPLAINTS OF PAIN AT THIS TIME. WITH IV ACCESS AT LEFT WRIST G20 SALINE LOCKED, PATENT AND INTACT. STATUS POST CT GUIDED CHEST TUBE PLACEMENT AND DRAINAGE. WITH FR. 12 PIGTAIL DRAINAGE CATHETER AT RIGHT PLEURAL SPACE WITH AN OUTPUT OF 1550ML. SAFETY MEASURES IN PLACED. CALL LIGHT WITHIN REACH. BED ON LOWEST LOCKED POSITION, SIDE RAILS UP X2. WILL CONTINUE OT MONITOR.
--- NOTE | 2021-05-22 04:00 | NUR ---
MS RN NOTES PRN MOTRIN GIVEN FOR MILD PAIN TOLERATED WELL.
[2021-05-22] MEDS: MEROPENEM 1 G in IV NS 0.9% 100 ML IV SCH ×3 (04:15→20:45)
[2021-05-22 06:35] LABS: BASOPHILS # (AUTO) 0.1 K/uL (0.0-0.2); BASOPHILS % (AUTO) 0.4 % (0.0-2.0); EOSINOPHILS % (AUTO) 0.2 % (0.0-6.0); HEMATOCRIT 37 % (39-51); HEMOGLOBIN 12.2 g/dL (13.5-17.5); LYMPHOCYTES # (AUTO) 0.8 K/uL (0.8-4.8); LYMPHOCYTES % (AUTO) 3.7 % (20.0-44.0); MEAN CORPUSCULAR HGB CONC 33 g/dl (31.0-36.0); MEAN CORPUSCULAR VOLUME 92 fL (80-96); MONOCYTES # (AUTO) 1.1 K/uL (0.1-1.30); MONOCYTES % (AUTO) 5.5 % (2.0-12.0); NEUTROPHILS # (AUTO) 18.9 K/uL (1.8-8.9); NEUTROPHILS % (AUTO) 90.2 % (43.0-81.0); PLATELET COUNT (AUTO) 316 K/uL (150-450); RED BLOOD CELL COUNT(AUTO) 3.99 MIL/uL (4.5-6.0); WHITE BLOOD COUNT (AUTO) 20.9 K/uL (4.3-11.0)
--- NOTE | 2021-05-22 07:01 | NUR ---
MS RN CLOSING NOTES PATIENT ON BED AWAKE AND A/O X2-3. ON O2 AT 3LPM VIA NASAL CANNULA TOLERATING WELL. NO SOB NOTED. NOT IN DISTRESS. WITH NO COMPLAINTS OF PAIN AT THIS TIME. WITH IV ACCESS AT LEFT WRIST G20 SALINE LOCKED, PATENT AND INTACT. STATUS POST CT GUIDED CHEST TUBE PLACEMENT AND DRAINAGE. WITH FR. 12 PIGTAIL DRAINAGE CATHETER AT RIGHT PLEURAL SPACE WITH AN OUTPUT OF 270ML. SAFETY MEASURES IN PLACED. CALL LIGHT WITHIN REACH. BED ON LOWEST LOCKED POSITION, SIDE RAILS UP X2. WILL ENDORSE CARE TO DAY SHIFT NURSE.
--- NOTE | 2021-05-22 07:15 | NUR ---
ms rn received on bed,awake,oriented to name, patient pleural drainage connected to oasis water seal vac, received at 1820cc level, purulent drainage output, denies pain at site, will monitor patient.
[2021-05-22 07:40] LABS: CALCIUM, SERUM 8.6 mg/dL (8.5-10.1); CREATININE 1.7 mg/dL (0.6-1.3); POTASSIUM 3.5 mmol/L (3.5-5.1)
[2021-05-22 08:00] VITALS: BP 106/58
--- NOTE | 2021-05-22 09:00 | NUR ---
ms rn due meds given, toelrated well. patient is afebrile,will monitor.
[2021-05-22] MEDS: THIAMINE HCL 100 MG TABLET PO SCH (09:02)
[2021-05-22] MEDS: PANTOPRAZOLE 40 MG TABLET.DR PO SCH (09:02)
--- NOTE | 2021-05-22 14:00 | NUR ---
ms rn oasis drain changed w/ 180cc at this time.new drain connected, 400ml collected initially. patient looks better, no sob noted.
[2021-05-22 16:00] VITALS: BP 114/69
[2021-05-22] MEDS: VANCOMYCIN 1.5 GM in IV D5W 500ml IV SCH (17:03)
--- NOTE | 2021-05-22 18:05 | NUR ---
ms rn on bed, no distress noted, sx drainage output - 780ml still purulent,denies pain,all needs attended.
--- NOTE | 2021-05-22 19:25 | NUR ---
MS RN OPENING NOTES PATIENT ON BED AWAKE AND A/O X2-3. ON O2 AT 2 LPM VIA NASAL CANNULA TOLERATING WELL. NO SOB NOTED. NOT IN DISTRESS. WITH NO COMPLAINTS OF PAIN AT THIS TIME. WITH IV ACCESS AT LEFT WRIST G#20 SL, PATENT AND INTACT. CHEST TUBE PLACEMENT AND DRAINAGE. WITH FR. 12 PIGTAIL DRAINAGE CATHETER AT RIGHT PLEURAL SPACE WITH AN OUTPUT OF 780 ML. SAFETY MEASURES IN PLACED. CALL LIGHT WITHIN REACH. BED ON LOWEST LOCKED POSITION, SIDE RAILS UP X2. WILL CONTINUE OT MONITOR PATIENT.
[2021-05-22 20:00] VITALS: BP 123/65
[2021-05-23] MEDS: MEROPENEM 1 G in IV NS 0.9% 100 ML IV SCH ×3 (04:04→21:20)
--- NOTE | 2021-05-23 06:37 | NUR ---
MS RN CLOSING NOTES PATIENT STILL ON BED AWAKE AND A/O X2-3. ON O2 AT 2 LPM VIA NASAL CANNULA TOLERATING WELL. NO SOB NOTED. NOT IN DISTRESS. WITH NO COMPLAINTS OF PAIN AT THIS TIME. WITH IV ACCESS AT LEFT WRIST G#20 SL, PATENT AND INTACT. CHEST TUBE PLACEMENT AND DRAINAGE. WITH FR. 12 PIGTAIL DRAINAGE CATHETER AT RIGHT PLEURAL SPACE WITH AN OUTPUT OF 200 ML. SAFETY MEASURES IN PLACED. CALL LIGHT WITHIN REACH. BED ON LOWEST LOCKED POSITION, SIDE RAILS UP X2. WILL ENDORSE CONTINUITY OF CARE TO DAY SHIFT NURSE.
[2021-05-23 06:53] LABS: CREATININE 1.2 mg/dL (0.6-1.3); POTASSIUM 3.6 mmol/L (3.5-5.1)
--- NOTE | 2021-05-23 07:30 | NUR ---
MS RN OPENING NOTES RECEIVED PATIENT IN BED. AWAKE, A/O X2. NON-VERBAL BUT RESPONDS WITH NODDING. ON O2 AT 2LPM VIA NASAL CANNULA,TOLERATING WELL. NO SOB NOTED. NOT IN DISTRESS. BREATHING IS EVEN AND UNLABRORED. NO COMPLAINTS OF PAIN AT THIS TIME. IV ACCESS AT LEFT WRIST G20 SALINE LOCKED, PATENT AND INTACT. PT NOTED WITH CHEST TUBE 12F ON RIGHT WITH OUTPUT DRAINAGE AT 800ML. SAFETY MEASURES IN PLACE WITH BED LOCKED AND LOW POSITION AND SIDE RAILS UP X 2. CALL LIGHT WITHIN REACH. WILL CONTINUE TO MONITOR FOR CHANGES IN CONDITION.
[2021-05-23 08:12] LABS: BASOPHILS # (AUTO) 0.1 K/uL (0.0-0.2); BASOPHILS % (AUTO) 0.4 % (0.0-2.0); EOSINOPHILS % (AUTO) 0.8 % (0.0-6.0); HEMATOCRIT 38 % (39-51); HEMOGLOBIN 12.5 g/dL (13.5-17.5); LYMPHOCYTES # (AUTO) 1.1 K/uL (0.8-4.8); MEAN CORPUSCULAR HGB CONC 33 g/dl (31.0-36.0); MEAN CORPUSCULAR VOLUME 92 fL (80-96); MONOCYTES # (AUTO) 1.1 K/uL (0.1-1.30); MONOCYTES % (AUTO) 5.9 % (2.0-12.0); NEUTROPHILS # (AUTO) 15.6 K/uL (1.8-8.9); NEUTROPHILS % (AUTO) 86.9 % (43.0-81.0); PLATELET COUNT (AUTO) 307 K/uL (150-450); RED BLOOD CELL COUNT(AUTO) 4.13 MIL/uL (4.5-6.0)
[2021-05-23 08:34] VITALS: BP 116/62
[2021-05-23] MEDS: THIAMINE HCL 100 MG TABLET PO SCH (08:38)
[2021-05-23] MEDS: PANTOPRAZOLE 40 MG TABLET.DR PO SCH (08:38)
[2021-05-23 12:59] LABS: BAND % (MANUAL) 4 % (0.0-5.0); LYMPHOCYTES % (MANUAL) 5 % (16-48); MONOCYTES % (MANUAL) 4 % (0-11.0); NEUTROPHILS % (MANUAL) 87 (42-76)
[2021-05-23 16:16] VITALS: BP 115/68
[2021-05-23] MEDS: IBUPROFEN 600 MG TABLET PO PRN (16:32)
--- NOTE | 2021-05-23 17:00 | NUR ---
RN NOTE PTS TEMP 100.3. ADMINISTERED IBUPROFEN 600MG AND COOLING MEASURES (ICE PACKS X3). WILL RECHECK TEMP.
--- NOTE | 2021-05-23 18:07 | NUR ---
RN NOTE TEMP DECREASED TO 99.1F
--- NOTE | 2021-05-23 19:01 | NUR ---
MS RN CLOSING NOTES PATIENT IN BED. AWAKE, A/O X2. NON-VERBAL BUT RESPONDS WITH NODDING. ON O2 AT 2LPM VIA NASAL CANNULA,TOLERATING WELL. NO SOB NOTED. NOT IN DISTRESS. BREATHING IS EVEN AND UNLABORED. NO COMPLAINTS OF PAIN AT THIS TIME. TEMP IS WITHIN NORMAL RANGE. PT WITH 1050ML OUTPUT FROM DRAIN. IV ACCESS AT LEFT WRIST G20 SALINE LOCKED, PATENT AND INTACT. SAFETY MEASURES IN PLACE WITH BED LOCKED AND LOW POSITION AND SIDE RAILS UP X 2. CALL LIGHT WITHIN REACH. WILL ENDORSE TO NEXT NURSE.
[2021-05-23 20:42] VITALS: BP 118/76
--- NOTE | 2021-05-23 20:42 | NUR ---
MS RN OPENING NOTES: RECEIVED PATIENT AWAKE IN BED, BED IN LOW POSITION, CALL LIGTS WITHIN REACH, NO COMPLAIN OF PAIN AND DISCOMFORT AT THIS TIME, PATIENT IS A/OX1 NONE VERBAL, ON NASAL CANNNULA AT 2LPM SATURATING WELL, NO SOB WAS OBSERVED, HOB AT 45 DEGREE TO REMAIN ALL THE TIME, IV LINE AT L WRIST #20 SL, WITH ARCHER CATHETER WITH 100CC URINE OUTPUT, WITH FR-12 PIGTAIL DRAINAGE AT RIGHT PLEURAL SPACE -1050, PATIENT KEPT CLEAN AND DRY ALL NEEDS MET, WILL CONTINUE TO MONITOR.
[2021-05-24] MEDS: MEROPENEM 1 G in IV NS 0.9% 100 ML IV SCH ×3 (05:01→20:33)
--- NOTE | 2021-05-24 07:00 | NUR ---
RN NOTES: PIGTAIL DRAINAGE ON RIGHT LOWER ABDOMEN IS 170 (970-800) COMBINED OUTPUT FROM AM SHIFT
[2021-05-24 07:32] LABS: CREATININE 1.1 mg/dL (0.6-1.3); POTASSIUM 3.6 mmol/L (3.5-5.1)
--- NOTE | 2021-05-24 07:36 | NUR ---
MS RN CLOSING NOTES: PATIENT WAS PLACED IN BED COMFORTABLY, BED IN LOW POSITION, CALL LIGHTS WITHIN REACH, NO COMPLAIN OF PAIN AND DISCOMFORT AT THIS TIME, NO FACIAL GRIMACING WAS OBSERVED, PATIENT ON O2 INHALATION VIA NASAL CANNULA AT 2LPM SEMI FOWLERS AT 45 DEGREE, NO SOB WAS OBSERVED, ON ARCHER CATHETER-150 CC, ON PIGTAIL DRAINAGE CATH AT RIGHT PLEURAL SPACE -OUTPUT IS 170 COMBINED WITH AM SHIFT, PATIENT KEPT CLEAN AND DRY, ALL NEEDS MET, ENDORSE TO INCOMING SHIFT.
[2021-05-24 08:00] VITALS: BP 125/64
[2021-05-24] MEDS: IBUPROFEN 600 MG TABLET PO PRN (08:16)
[2021-05-24] MEDS: PANTOPRAZOLE 40 MG TABLET.DR PO SCH (08:19)
[2021-05-24] MEDS: THIAMINE HCL 100 MG TABLET PO SCH (08:19)
[2021-05-24 16:00] VITALS: BP 112/64
--- NOTE | 2021-05-24 18:39 | NUR ---
MS RN CLOSING NOTES PATIENT IN BED. AWAKE, A/O X2. NON-VERBAL BUT RESPONDS WITH NODDING. ON O2 AT 2LPM VIA NASAL CANNULA,TOLERATING WELL. NO SOB NOTED. NOT IN DISTRESS. BREATHING IS EVEN AND UNLABORED. NO COMPLAINTS OF PAIN AT THIS TIME. TEMP IS WITHIN NORMAL RANGE IV ACCESS AT LEFT WRIST G20 SALINE LOCKED, PATENT AND INTACT. NO OUTPUT FROM DRAINAGE DURING SHIFT. SAFETY MEASURES IN PLACE WITH BED LOCKED AND LOW POSITION AND SIDE RAILS UP X 2. CALL LIGHT WITHIN REACH. WILL ENDORSE TO NEXT NURSE.
--- NOTE | 2021-05-24 19:28 | NUR ---
MS RN OPENING NOTES PATIENT IN BED. AWAKE, A/O X2. NON-VERBAL BUT RESPONDS WITH NODDING. ON O2 AT 2LPM VIA NASAL CANNULA,TOLERATING WELL. NO SOB NOTED. NOT IN DISTRESS. BREATHING IS EVEN AND UNLABORED. NO COMPLAINTS OF PAIN AT THIS TIME.IV ACCESS AT LEFT WRIST G20 SALINE LOCKED, PATENT AND INTACT. NO OUTPUT FROM DRAINAGE DURING DAY SHIFT. SAFETY MEASURES IN PLACE WITH BED LOCKED AND LOW POSITION AND SIDE RAILS UP X 2. CALL LIGHT WITHIN REACH. WILL CONTINUE TO MONITOR.
[2021-05-24 20:00] VITALS: BP 130/74
[2021-05-24 20:27] LABS: BILIRUBIN,URINE SMALL (NEGATIVE); COLOR,URINE YELLOW (YELLOW); LEUKOCYTE ESTERASE ,URINE NEGATIVE (NEGATIVE); NITRITE, URINE NEGATIVE (NEGATIVE); PROTEIN,URINE TRACE mg/dl (NEGATIVE); UGLUCOSE NEGATIVE (NEGATIVE)
[2021-05-24 20:34] LABS: BACTERIA,URINE None seen /HPF (None Seen); RBC,URINE 21-50 /HPF (0-2); SQUAMOUS EPITHELIAL CELL,UR 0-2 /HPF (None Seen); URINE AMORPHOUS URATE Moderate /HPF (None Seen); WBC,URINE 0-2 /HPF (0-3)
[2021-05-25] MEDS: MEROPENEM 1 G in IV NS 0.9% 100 ML IV SCH ×3 (04:00→20:40)
--- NOTE | 2021-05-25 06:45 | NUR ---
MS RN CLOSING NOTES PATIENT IN BED. AWAKE, A/O X2. NON-VERBAL BUT RESPONDS WITH NODDING. ON O2 AT 2LPM VIA NASAL CANNULA,TOLERATING WELL. NO SOB NOTED. NOT IN DISTRESS. BREATHING IS EVEN AND UNLABORED. NO COMPLAINTS OF PAIN AT THIS TIME.IV ACCESS AT LEFT WRIST G20 SALINE LOCKED, PATENT AND INTACT. WITH CHEST TUBE TO THE RIGHT PLEURAL SPACE WITH 40. SAFETY MEASURES IN PLACE WITH BED LOCKED AND LOW POSITION AND SIDE RAILS UP X 2. CALL LIGHT WITHIN REACH. WILL CONTINUE TO MONITOR. Addendum: 05/25/21 at 0646 by DRAKE GOMEZ RN WITH 30 CC OF OUT PUT FROM DRAIN THROUGHOUT THE SHIFT. WILL ENDORSE CARE TO DAY SHIFT NURSE.
[2021-05-25 07:17] LABS: CALCIUM, SERUM 7.9 mg/dL (8.5-10.1); CREATININE 1.1 mg/dL (0.6-1.3); POTASSIUM 3.8 mmol/L (3.5-5.1)
[2021-05-25 07:38] LABS: BASOPHILS # (AUTO) 0.1 K/uL (0.0-0.2); BASOPHILS % (AUTO) 0.3 % (0.0-2.0); EOSINOPHILS % (AUTO) 0.9 % (0.0-6.0); HEMATOCRIT 38 % (39-51); HEMOGLOBIN 12.5 g/dL (13.5-17.5); LYMPHOCYTES # (AUTO) 1.4 K/uL (0.8-4.8); LYMPHOCYTES % (AUTO) 6.6 % (20.0-44.0); MEAN CORPUSCULAR HGB CONC 33 g/dl (31.0-36.0); MEAN CORPUSCULAR VOLUME 91 fL (80-96); MONOCYTES # (AUTO) 1.1 K/uL (0.1-1.30); NEUTROPHILS # (AUTO) 18.2 K/uL (1.8-8.9); NEUTROPHILS % (AUTO) 87.2 % (43.0-81.0); PLATELET COUNT (AUTO) 410 K/uL (150-450); RED BLOOD CELL COUNT(AUTO) 4.15 MIL/uL (4.5-6.0); WHITE BLOOD COUNT (AUTO) 20.9 K/uL (4.3-11.0)
[2021-05-25 08:00] VITALS: BP 123/73
--- NOTE | 2021-05-25 08:00 | NUR ---
m/s outside sales inspector: initial assessment received pt in bed awake, alert to self only, able to make simple needs known, english speaking only. reality orientation provided prn. s/p right pleural drainage catheter placement with minimal output (30ml) since last night. bed alarm on. instructed to call for assistance.
[2021-05-25] MEDS: PANTOPRAZOLE 40 MG TABLET.DR PO SCH (08:12)
[2021-05-25] MEDS: THIAMINE HCL 100 MG TABLET PO SCH (08:12)
--- NOTE | 2021-05-25 10:30 | NUR ---
m/s material handler loader: notes resting comfortable in bed. reality orientation provided prn. will continue to monitor.
--- NOTE | 2021-05-25 11:22 | NUR ---
m/s filbert grower: notes ct chest resulted and given to dr. yates and requested thoracic surgery to evaluate as stated. cn made aware.
[2021-05-25 13:35] LABS: BAND % (MANUAL) 1 % (0.0-5.0); EOSINOPHILS % (MANUAL) 3 % (0-4); LYMPHOCYTES % (MANUAL) 8 % (16-48); MONOCYTES % (MANUAL) 5 % (0-11.0); NEUTROPHILS % (MANUAL) 82 (42-76); REACTIVE LYMPHOCYTES 1 % (0-0)
--- NOTE | 2021-05-25 14:25 | NUR ---
m/s assistant professor of economics: notes noted iv infiltrated, removed with tip intact. attempted to insert new iv, but unsuccessful. pt is a hard stick. called nursing framing mill supervisor for picc line nurse to attempt midline. cn aware. per picc line nurse eta at 1700.
[2021-05-25 16:00] VITALS: BP 112/72
--- NOTE | 2021-05-25 17:10 | NUR ---
m/s urgent care: notes picc line nurse inserted midline gauge #18 to left upper arm, mike. well. will continue to monitor.
--- NOTE | 2021-05-25 19:00 | NUR ---
m/s steam conditioner filling: notes bedside report given to tien (rn) for continuity of care.
--- NOTE | 2021-05-25 19:15 | NUR ---
MS RN OPENING NOTES PATIENT IN BED. AWAKE, A/O X2. NON-VERBAL BUT RESPONDS WITH NODDING. ON O2 AT 2LPM VIA NASAL CANNULA,TOLERATING WELL. NO SOB NOTED. NOT IN DISTRESS. BREATHING IS EVEN AND UNLABORED. NO COMPLAINTS OF PAIN AT THIS TIME.IV ACCESS AT LEFT WRIST G20 SALINE LOCKED, PATENT AND INTACT. WITH CHEST TUBE TO THE RIGHT PLEURAL SPACE WITH 200 CC OUTPUT DURING DAY SHIFT. SAFETY MEASURES IN PLACE WITH BED LOCKED AND LOW POSITION AND SIDE RAILS UP X 2. CALL LIGHT WITHIN REACH. WILL CONTINUE TO MONITOR
[2021-05-25 20:00] VITALS: BP 124/70
[2021-05-26] MEDS: MEROPENEM 1 G in IV NS 0.9% 100 ML IV SCH (04:37)
--- NOTE | 2021-05-26 06:58 | NUR ---
MS RN CLOSING NOTES PATIENT IN BED. AWAKE, A/O X2. NON-VERBAL BUT RESPONDS WITH NODDING. ON O2 AT 2LPM VIA NASAL CANNULA,TOLERATING WELL. NO SOB NOTED. NOT IN DISTRESS. BREATHING IS EVEN AND UNLABORED. NO COMPLAINTS OF PAIN AT THIS TIME.IV ACCESS AT KATHRYN MIDLINE, PATENT AND INTACT. WITH CHEST TUBE TO THE RIGHT PLEURAL SPACE WITH 160 CC OUTPUT DURING SHIFT. SAFETY MEASURES IN PLACE WITH BED LOCKED AND LOW POSITION AND SIDE RAILS UP X 2. CALL LIGHT WITHIN REACH. WILL ENDORSE CRAE TO DAY SHIFT NURSE.
[2021-05-26 07:21] LABS: CALCIUM, SERUM 8.4 mg/dL (8.5-10.1); CREATININE 0.9 mg/dL (0.6-1.3); POTASSIUM 3.5 mmol/L (3.5-5.1)
--- NOTE | 2021-05-26 08:02 | NUR ---
RN OPENING NOTES PATIENT AWAKE IN BED RESTING, A/O X1-2. NO S/S OF PAIN NOTED AT THIS TIME. ON 2L OXYGEN VIA NC, NO DISTRESS OR SHORTNESS OF BREATH NOTED. IV ACCESS KATHRYN MIDLINE, INTACT, PATENT AND FLUSHING WELL. PATIENT HAVE CHEST TUBE, RIGHT PLEURAL SPACE, DRAINING WELL. FALL AND SAFETY MEASURES IN PLACE, BED ALARM ON, BED IN LOW AND LOCK POSITION, CALL LIGHT AND TABLE WITHIN EASY REACH, SIDE RAILS UP X2. WILL CONTINUE TO MONITOR.
[2021-05-26 08:29] VITALS: BP 121/76
[2021-05-26] MEDS: THIAMINE HCL 100 MG TABLET PO SCH (08:46)
[2021-05-26] MEDS: PANTOPRAZOLE 40 MG TABLET.DR PO SCH (08:46)
[2021-05-26] MEDS ORDERED: NS 0.9% IV ONE (11:00)
[2021-05-26] MEDS ORDERED: ALTEPLASE CATHFLO IV ONE (11:00)
--- NOTE | 2021-05-26 11:30 | NUR ---
RN NOTE ALTEPLASE CATHFLO IV 0.9 50ML SYRINGE, (30ML - 0ML/HR) WAS ADMINISTERED BY DR. JIMENEZ.
[2021-05-26] MEDS ORDERED: CEFTRIAXONE 1 G in IV D5W 50 ML IV SCH (12:00)
[2021-05-26] MEDS ORDERED: METRONIDAZOLE 500MG/ NS 100ML 500 MG in PREMIX 1 EA IV SCH (12:00)
[2021-05-26] MEDS: METRONIDAZOLE 500 MG TABLET PO SCH ×2 (12:15→20:13)
[2021-05-26] MEDS: CEFTRIAXONE 2 G in IV D5W 100 ML IV SCH (12:15)
[2021-05-26] MEDS: IBUPROFEN 600 MG TABLET PO PRN ×2 (16:15→22:18)
[2021-05-26 16:19] VITALS: BP 122/75
--- NOTE | 2021-05-26 18:30 | NUR ---
RN NOTE PATIENT TEMPERATURE WAS 101.6. MOTRIN WAS GIVEN AND PATIENT CURRENT TEMPERATURE IS 99.3 CHARGE NURSE AWARE. WILL CONTINUE TO MONITOR.
--- NOTE | 2021-05-26 19:04 | NUR ---
RN CLOSING NOTES PATIENT AWAKE IN BED RESTING, A/O X1-2. NO S/S OF PAIN NOTED AT THIS TIME. ON 2L OXYGEN VIA NC, NO DISTRESS OR SHORTNESS OF BREATH NOTED. IV ACCESS KATHRYN MIDLINE, INTACT, PATENT AND FLUSHING WELL. PATIENT HAVE CHEST TUBE, RIGHT PLEURAL SPACE, DRAINING WELL. FALL AND SAFETY MEASURES IN PLACE, BED ALARM ON, BED IN LOW AND LOCK POSITION, CALL LIGHT AND TABLE WITHIN EASY REACH, SIDE RAILS UP X2. WILL ENDORSE TO WELDING PRODUCTION SUPERVISOR.
--- NOTE | 2021-05-26 19:47 | NUR ---
RN OPENING NOTES PATIENT AWAKE IN BED RESTING, A/O X1-2. NO S/S OF PAIN NOTED AT THIS TIME. ON 2L OXYGEN VIA NC, NO DISTRESS OR SHORTNESS OF BREATH NOTED. IV ACCESS KATHRYN MIDLINE, INTACT, PATENT AND FLUSHING WELL. PATIENT HAVE CHEST TUBE, RIGHT PLEURAL SPACE, DRAINING WELL WITH 410 CC OUTPUT TO WALL WITH MED CONTINUOUS SUCTIONING DURING DAY SHIFT. FALL AND SAFETY MEASURES IN PLACE, BED ALARM ON, BED IN LOW AND LOCK POSITION, CALL LIGHT AND TABLE WITHIN EASY REACH, SIDE RAILS UP X2. WILL CONTINUE TO MONITOR.
[2021-05-26 20:00] VITALS: BP 118/62
[2021-05-27] MEDS: METRONIDAZOLE 500 MG TABLET PO SCH ×4 (03:58→20:23)
--- NOTE | 2021-05-27 06:55 | NUR ---
RN CLOSING NOTES PATIENT AWAKE IN BED RESTING, A/O X1-2. NO S/S OF PAIN NOTED AT THIS TIME. ON 2L OXYGEN VIA NC, NO DISTRESS OR SHORTNESS OF BREATH NOTED. IV ACCESS KATHRYN MIDLINE, INTACT, PATENT AND FLUSHING WELL. PATIENT HAVE CHEST TUBE, RIGHT PLEURAL SPACE, DRAINING WELL WITH 300 CC OUTPUT TO WALL WITH MED CONTINUOUS SUCTIONING DURING DAY SHIFT. FALL AND SAFETY MEASURES IN PLACE, BED ALARM ON, BED IN LOW AND LOCK POSITION, CALL LIGHT AND TABLE WITHIN EASY REACH, SIDE RAILS UP X2. WILL ENDORSE CRAE TO DAY SHIFT NURSE.
--- NOTE | 2021-05-27 07:30 | NUR ---
MS RN OPENING NOTES RECEIVED PATIENT AWAKE ON BED RESTING, A/O X1-2. NO S/S OF PAIN NOTED AT THIS TIME. ON 2L OXYGEN VIA NC, NO DISTRESS OR SHORTNESS OF BREATH NOTED. WITH IV ACCESS AT KATHRYN MIDLINE, INTACT, PATENT AND FLUSHING WELL. PATIENT HAVE CHEST TUBE, RIGHT PLEURAL SPACE, DRAINING WELL WITH 300 OUTPUT. FALL AND SAFETY MEASURES IN PLACED, BED ALARM ON, BED IN LOW AND LOCK POSITION, CALL LIGHT AND TABLE WITHIN EASY REACH, SIDE RAILS UP X2. WILL CONTINUE TO MONITOR.
[2021-05-27 07:45] LABS: BASOPHILS # (AUTO) 0.1 K/uL (0.0-0.2); BASOPHILS % (AUTO) 0.4 % (0.0-2.0); EOSINOPHILS % (AUTO) 1.4 % (0.0-6.0); HEMATOCRIT 36 % (39-51); HEMOGLOBIN 11.9 g/dL (13.5-17.5); LYMPHOCYTES # (AUTO) 1.5 K/uL (0.8-4.8); LYMPHOCYTES % (AUTO) 10.5 % (20.0-44.0); MEAN CORPUSCULAR HGB CONC 33 g/dl (31.0-36.0); MEAN CORPUSCULAR VOLUME 90 fL (80-96); MONOCYTES # (AUTO) 1.1 K/uL (0.1-1.30); MONOCYTES % (AUTO) 7.4 % (2.0-12.0); NEUTROPHILS # (AUTO) 11.7 K/uL (1.8-8.9); NEUTROPHILS % (AUTO) 80.3 % (43.0-81.0); PLATELET COUNT (AUTO) 421 K/uL (150-450); RED BLOOD CELL COUNT(AUTO) 3.97 MIL/uL (4.5-6.0); WHITE BLOOD COUNT (AUTO) 14.6 K/uL (4.3-11.0)
[2021-05-27 08:00] VITALS: BP 128/71
[2021-05-27 08:10] LABS: CALCIUM, SERUM 7.8 mg/dL (8.5-10.1); CREATININE 0.9 mg/dL (0.6-1.3); POTASSIUM 3.5 mmol/L (3.5-5.1)
[2021-05-27] MEDS: PANTOPRAZOLE 40 MG TABLET.DR PO SCH (08:56)
[2021-05-27] MEDS: THIAMINE HCL 100 MG TABLET PO SCH (08:56)
[2021-05-27] MEDS: CEFTRIAXONE 2 G in IV D5W 100 ML IV SCH (11:10)
[2021-05-27 16:00] VITALS: BP 128/76
--- NOTE | 2021-05-27 18:23 | NUR ---
MS RN CLOSING NOTES PATIENT AWAKE ON BED RESTING, A/O X1-2. NO S/S OF PAIN NOTED AT THIS TIME. ON 2L OXYGEN VIA NC, NO DISTRESS OR SHORTNESS OF BREATH NOTED. WITH IV ACCESS AT KATHRYN MIDLINE, INTACT, PATENT AND FLUSHING WELL. PATIENT HAVE CHEST TUBE, RIGHT PLEURAL SPACE, DRAINING WELL WITH 50ML OUTPUT. DUE MEDS GIVEN. FALL AND SAFETY MEASURES IN PLACED, BED ALARM ON, BED IN LOW AND LOCK POSITION, CALL LIGHT AND TABLE WITHIN EASY REACH, SIDE RAILS UP X2. WILL ENDORSE TO NEXT SHIFT FOR ANGE.
--- NOTE | 2021-05-27 19:34 | NUR ---
RN OPENING NOTES RECEIVED PATIENT IN BED AWAKE. A/O X1-2. ON 2LPM VIA NC AND TOLERATING WELL. NO SOB NOTED. NO S/SX OF RESPIRATORY DISTRESS NOTED. IV ACCESS IN KATHRYN MIDLINE. IV IS INTACT, PATENT, AND FLUSHING WELL. SAFETY PRECAUTIONS IN PLACE: BED IN LOWEST, LOCKED POSITION, SIDERAILS UPx2, AND BRAKES ON. TABLE AND CALL LIGHT WITHIN REACH. WILL CONTINUE TO MONITOR.
[2021-05-27 20:00] VITALS: BP 146/86
--- NOTE | 2021-05-28 00:23 | NUR ---
ENTERED PATIENT'S ROOM AND PATIENT WAS GETTING OUT OF BED. EDUCATED PATIENT TO NOT GET OUT OF BED SO TO NOT ACCIDENTALLY REMOVE PIGTAIL CATHETER OR ARCHER CATHETER. PATIENT AGREES. WILL CONTINUE TO MONITOR. PATIENT ALSO REMOVED MIDLINE. REFUSED IV REINSERTION. WILL ATTEMPT AT A LATER TIME.
[2021-05-28] MEDS: METRONIDAZOLE 500 MG TABLET PO SCH ×2 (03:12→12:09)
--- NOTE | 2021-05-28 06:47 | NUR ---
RN CLOSING NOTES PT IN BED AWAKE. A/O X1-2. ON 2LPM VIA NC AND TOLERATING WELL. NO SOB NOTED. NO S/SX OF RESPIRATORY DISTRESS NOTED. IV ACCESS IN L HAND #22G. IV IS INTACT, PATENT, AND FLUSHING WELL. ALL NEEDS MET. PT KEPT CLEAN AND DRY. SAFETY PRECAUTIONS IN PLACE: BED IN LOWEST, LOCKED POSITION, SIDERAILS UPx2, AND BRAKES ON. TABLE AND CALL LIGHT WITHIN REACH. WILL ENDORSE TO ONCOMING SHIFT FOR ANGE.
[2021-05-28 06:49] LABS: BASOPHILS # (AUTO) 0.1 K/uL (0.0-0.2); BASOPHILS % (AUTO) 0.3 % (0.0-2.0); EOSINOPHILS % (AUTO) 0.5 % (0.0-6.0); HEMATOCRIT 37 % (39-51); HEMOGLOBIN 12.3 g/dL (13.5-17.5); LYMPHOCYTES # (AUTO) 1.3 K/uL (0.8-4.8); LYMPHOCYTES % (AUTO) 6.6 % (20.0-44.0); MEAN CORPUSCULAR HGB CONC 33 g/dl (31.0-36.0); MEAN CORPUSCULAR VOLUME 90 fL (80-96); MONOCYTES # (AUTO) 1.2 K/uL (0.1-1.30); MONOCYTES % (AUTO) 6.1 % (2.0-12.0); NEUTROPHILS # (AUTO) 17.6 K/uL (1.8-8.9); NEUTROPHILS % (AUTO) 86.5 % (43.0-81.0); PLATELET COUNT (AUTO) 434 K/uL (150-450); RED BLOOD CELL COUNT(AUTO) 4.17 MIL/uL (4.5-6.0); WHITE BLOOD COUNT (AUTO) 20.3 K/uL (4.3-11.0)
[2021-05-28] MEDS: PANTOPRAZOLE 40 MG TABLET.DR PO SCH (06:52)
--- NOTE | 2021-05-28 07:30 | NUR ---
MS RN OPENING NOTES RECEIVED PATIENT ON BED AWAKE AND A/O X1-2. ON O2 AT 2LPM VIA NASAL CANNULA TOLERATING WELL. NO SOB NOTED. NOT IN DISTRESS. WITH NO COMPLAINTS OF PAIN OR DISCOMFORT AT THIS TIME. WITH IV ACCESS AT LEFT HAND G22 SALINE LOCKED, PATENT AND INTACT. WITH PIGTAIL CATHETER AT THE RIGHT CHEST WALL ATTACHED TO CHEST TUBE CHAMBER AT 400ML LEVEL OF LIGHT REDDISH FLUID. DUE MEDS GIVEN. SAFETY MEASURES IN PLACED. CALL LIGHT WITHIN REACH. BED ON LOWEST LOCKED POSITION, SIDE RAILS UP X2. WILL CONTINUE TO MONITOR.
[2021-05-28] MEDS: THIAMINE HCL 100 MG TABLET PO SCH (08:00)
[2021-05-28 08:32] VITALS: BP 105/67
[2021-05-28] MEDS ORDERED: ALTEPLASE CATHFLO IV ONE (09:30)
[2021-05-28] MEDS ORDERED: NS 0.9% IV ONE (09:30)
--- NOTE | 2021-05-28 10:00 | NUR ---
RN NOTES DR. MOORE GAVE CATHFLO ACTIVASE THROUGH PIGTAIL CATHETER AND CLAMPED THE TUBE. DOCTOR ORDERED TO UNCLAMP THE TUBE AFTER 6 HOURS. TO UNCLAMP THE TUBE AT 1600.
[2021-05-28 10:06] LABS: EOSINOPHILS % (MANUAL) 1 % (0-4); LYMPHOCYTES % (MANUAL) 10 % (16-48); MONOCYTES % (MANUAL) 8 % (0-11.0); NEUTROPHILS % (MANUAL) 81 (42-76)
[2021-05-28] MEDS: CEFTRIAXONE 2 G in IV D5W 100 ML IV SCH (12:07)
--- NOTE | 2021-05-28 16:00 | NUR ---
RN NOTES UNCLAMPED THE TUBE, TO MONITOR FLUID OUTPUT.
[2021-05-28 16:24] VITALS: BP 111/71
[2021-05-28] MEDS: MEROPENEM 1 G in IV NS 0.9% 100 ML IV SCH ×2 (17:16→20:40)
[2021-05-28] MEDS: ENSURE ENLIVE 237 ML LIQUID (VANILLA) PO SCH (17:21)
--- NOTE | 2021-05-28 18:43 | NUR ---
MS LINDSEY OPENING NOTES PATIENT ON BED AWAKE AND A/O X1-2. ON O2 AT 2LPM VIA NASAL CANNULA TOLERATING WELL. NO SOB NOTED. NOT IN DISTRESS. WITH NO COMPLAINTS OF PAIN OR DISCOMFORT AT THIS TIME. WITH IV ACCESS AT LEFT HAND G22 SALINE LOCKED, PATENT AND INTACT. WITH PIGTAIL CATHETER AT THE RIGHT CHEST WALL ATTACHED TO CHEST TUBE CHAMBER WITH AN OUTPUT OF 130ML LIGHT REDDISH FLUID. DUE MEDS GIVEN. SAFETY MEASURES IN PLACED. CALL LIGHT WITHIN REACH. BED ON LOWEST LOCKED POSITION, SIDE RAILS UP X2. WILL ENDORSE TO NEXT SHIFT FOR ANGE. Addendum: 05/28/21 at 1845 by NILSON BA RN ERROR
[2021-05-28 20:00] VITALS: BP 107/64
--- NOTE | 2021-05-28 20:00 | NUR ---
PATIENT ALERT AND AWAKE, NON VERBAL, 2LPM VIA NC, SPO2 97%, CHEST TUBE RIGHT PLEURAL SPACE, INSERTION SITE DRY, CHEST TUBE ON MEDIUM SUCTION, SEROSANGUINEOUS DRAINAGE, KEPT HOB ELEVATED, FEVER 100.2F, WILL GIVE IBUPROFEN AND COOLING MEASURES.
[2021-05-28] MEDS: IBUPROFEN 600 MG TABLET PO PRN (20:38)
--- NOTE | 2021-05-28 22:50 | NUR ---
RECHECKED TEMPERATURE 98.3F, PATIENT ASLEEP, APPEARED COMFORTABLE
[2021-05-29] MEDS: MEROPENEM 1 G in IV NS 0.9% 100 ML IV SCH ×3 (04:59→20:41)
--- NOTE | 2021-05-29 07:08 | NUR ---
ALERT AND AWAKE, NEPALI SPEAKING ONLY, STABLE ON 2LPM VIA NC, FEVER AT START OF SHIFT, GIVEN IBUPROFEN AND COOLING MEASURES, TEMP WENT DOWN TO 98.3F AND REMAINED AFEBRILE, CHEST TUBE IN PLACE, INSERTION SITE DRY AND INTACT, OUTPUT 175 ML, BROWN, PURULENT DRAINAGE, CONTINUE CHEST TUBE, MERREM, MONITOR FOR FEVER. ARCHER CATHETER DRAINING WELL. OOB ONCE A DAY OR BID TOLERATED.
--- NOTE | 2021-05-29 07:30 | NUR ---
RN MS NOTES PT IN BED, ASLEEP, EASY TO AROUSE, NO SIGN OF PAIN, NOT IN DISTRESS, CALL LIGJHT WITHIN REACH, KEPT WARM AND COMFORTABLE IN BED.
[2021-05-29 07:39] LABS: BASOPHILS % (AUTO) 0.2 % (0.0-2.0); EOSINOPHILS % (AUTO) 1.1 % (0.0-6.0); HEMATOCRIT 36 % (39-51); HEMOGLOBIN 12.1 g/dL (13.5-17.5); LYMPHOCYTES # (AUTO) 1.4 K/uL (0.8-4.8); LYMPHOCYTES % (AUTO) 7.3 % (20.0-44.0); MEAN CORPUSCULAR HGB CONC 34 g/dl (31.0-36.0); MEAN CORPUSCULAR VOLUME 91 fL (80-96); MONOCYTES # (AUTO) 1.1 K/uL (0.1-1.30); MONOCYTES % (AUTO) 6.1 % (2.0-12.0); NEUTROPHILS % (AUTO) 85.3 % (43.0-81.0); PLATELET COUNT (AUTO) 420 K/uL (150-450); RED BLOOD CELL COUNT(AUTO) 3.95 MIL/uL (4.5-6.0); WHITE BLOOD COUNT (AUTO) 18.8 K/uL (4.3-11.0)
[2021-05-29 08:15] LABS: CALCIUM, SERUM 8.1 mg/dL (8.5-10.1); POTASSIUM 3.7 mmol/L (3.5-5.1)
[2021-05-29 08:31] VITALS: BP 117/67
[2021-05-29] MEDS: PANTOPRAZOLE 40 MG TABLET.DR PO SCH (09:21)
[2021-05-29] MEDS: THIAMINE HCL 100 MG TABLET PO SCH (09:21)
--- NOTE | 2021-05-29 11:09 | NUR ---
RN MS NOTES PT SEEN AND EXAMINED BY DR. WOODRUFF, RECEIVED ORDER FROM DR. MOORE TO ORDER CHEST XRAY, NOTED AND CARRIED OUT.
[2021-05-29] MEDS: ENSURE ENLIVE 237 ML LIQUID (VANILLA) PO SCH ×2 (12:17→17:23)
[2021-05-29 16:30] VITALS: BP 95/55
--- NOTE | 2021-05-29 19:00 | NUR ---
RN MS NOTES PT IN BED, RESTING, ALERT TO NAME, NO SIGN OF PAIN OR DISTRESS, CALL LIGHT WIHTIN REACH, ASSISTED WITH DINNER, TOLERATES CURRENT DIET, F/C DRAINING WELL, PM CARE PROVIDED, ALL NEEDS ATTENDED, ENDORSED TO STUDENT RN FOR ANGE.
[2021-05-29 20:00] VITALS: BP 107/67
--- NOTE | 2021-05-29 20:00 | NUR ---
MS RN OPENING NOTE PATIENT AWAKE IN BED WATCHING TV, PT ALERT BUT DOESN'T RESPOND WHEN SPOKEN TO, PER DAY SHIFT NURSE [place] SPEAKING. ASKED PATIENT IF HE WAS DOING OKAY AND PATIENT NODDED HEAD YES. NO S/S OF DISTRESS OR SOB NOTED, PT STABLE ON 2 LPM OF OXYGEN VIA NC, BREATHING EVEN AND UNLABORED. ARCHER CATHETER INTACT AND FLUSHING YELLOW URINE. RIGHT CHEST TUBE INTACT AND ON MEDIUM SUCTION. SAFETY MEASURES IN PLACE: CALL LIGHT WITHIN REACH, SIDE RAILS UP X 2, BED LOCKED IN LOW POSITION, BED ALARM ON. WILL CONTINUE TO MONITOR PATIENT
[2021-05-30] MEDS: IBUPROFEN 600 MG TABLET PO PRN (00:42)
--- NOTE | 2021-05-30 00:45 | NUR ---
RN NOTE PATIENT NOTED WITH TEMP OF 100.5. IBUPROFEN 600 MG PO GIVEN ORDERED. WILL CONTINUE TO MONITOR PATIENT
[2021-05-30] MEDS: MEROPENEM 1 G in IV NS 0.9% 100 ML IV SCH ×3 (04:58→21:52)
[2021-05-30 06:14] LABS: BASOPHILS # (AUTO) 0.1 K/uL (0.0-0.2); BASOPHILS % (AUTO) 0.4 % (0.0-2.0); EOSINOPHILS % (AUTO) 2.1 % (0.0-6.0); HEMATOCRIT 35 % (39-51); HEMOGLOBIN 11.3 g/dL (13.5-17.5); LYMPHOCYTES # (AUTO) 1.6 K/uL (0.8-4.8); LYMPHOCYTES % (AUTO) 9.1 % (20.0-44.0); MEAN CORPUSCULAR HGB CONC 33 g/dl (31.0-36.0); MEAN CORPUSCULAR VOLUME 91 fL (80-96); MONOCYTES # (AUTO) 1.2 K/uL (0.1-1.30); MONOCYTES % (AUTO) 6.5 % (2.0-12.0); NEUTROPHILS # (AUTO) 14.8 K/uL (1.8-8.9); NEUTROPHILS % (AUTO) 81.9 % (43.0-81.0); PLATELET COUNT (AUTO) 453 K/uL (150-450)
--- NOTE | 2021-05-30 07:00 | NUR ---
MS RN CLOSING NOTE PATIENT AWAKE IN BED WATCHING TV, NO SIGNIFICANT CHANGES THROUGHOUT SHIFT. ASKED PATIENT IF HE WAS DOING OKAY AND PATIENT NODDED HEAD YES. NO S/S OF DISTRESS OR SOB NOTED, PT STABLE ON 2 LPM OF OXYGEN VIA NC, BREATHING EVEN AND UNLABORED. ARCHER CATHETER INTACT AND FLUSHING YELLOW URINE. RIGHT CHEST TUBE INTACT AND ON MEDIUM SUCTION, OUTPUT OF 170 ML/HR. MEDICATIONS GIVEN ORDERED, PT NEEDS MET THROUGHOUT SHIFT. SAFETY MEASURES IN PLACE: CALL LIGHT WITHIN REACH, SIDE RAILS UP X 2, BED LOCKED IN LOW POSITION, BED ALARM ON. ENDORSED TO DAY SHIFT NURSE FOR CONTINUITY OF CARE
--- NOTE | 2021-05-30 07:32 | NUR ---
RN OPENING NOTES PATIENT AWAKE IN BED RESTING, A/O X1-2. NO S/S OF PAIN NOTED AT THIS TIME. ON 2L OXYGEN VIA NC, NO DISTRESS OR SHORTNESS OF BREATH NOTED. IV ACCESS L HAND #[id number], INTACT, PATENT AND FLUSHING WELL. PATIENT HAVE CHEST TUBE, RIGHT PLEURAL SPACE, IN PLACE AND DRAINING WELL. PATIENT HAVE A ARCHER CATHETER IN PLACE AND DRAINING WELL. FALL AND SAFETY MEASURES IN PLACE, BED ALARM ON, BED IN LOW AND LOCK POSITION, CALL LIGHT AND TABLE WITHIN EASY REACH, SIDE RAILS UP X2. WILL CONTINUE TO MONITOR.
[2021-05-30] MEDS: PANTOPRAZOLE 40 MG TABLET.DR PO SCH (08:29)
[2021-05-30] MEDS: THIAMINE HCL 100 MG TABLET PO SCH (08:30)
[2021-05-30] MEDS: ENSURE ENLIVE 237 ML LIQUID (VANILLA) PO SCH ×2 (08:30→17:29)
--- NOTE | 2021-05-30 18:42 | NUR ---
RN CLOSING NOTES PATIENT AWAKE IN BED RESTING, A/O X1-2. NO S/S OF PAIN NOTED AT THIS TIME. ON 2L OXYGEN VIA NC, NO DISTRESS OR SHORTNESS OF BREATH NOTED. IV ACCESS L HAND #22G, INTACT, PATENT AND FLUSHING WELL. PATIENT HAVE CHEST TUBE, RIGHT PLEURAL SPACE, IN PLACE AND DRAINING WELL OUTPUT LESS THAN 10ML. PATIENT HAVE A ARCHER CATHETER IN PLACE AND DRAINING WELL, OUTPUT OF 450, JYOTI COLOR. FALL AND SAFETY MEASURES IN PLACE, BED ALARM ON, BED IN LOW AND LOCK POSITION, CALL LIGHT AND TABLE WITHIN EASY REACH, SIDE RAILS UP X2. WILL ENDORSE TO HOUSEKEEPING DIRECTOR. Addendum: 05/30/21 at 1847 by Maisha Adorno RN IV ACCESS LEFT AC #20G
[2021-05-30 20:00] VITALS: BP 126/63
[2021-05-31] MEDS: MEROPENEM 1 G in IV NS 0.9% 100 ML IV SCH ×3 (05:21→21:14)
--- NOTE | 2021-05-31 06:30 | NUR ---
RN CLOSING NOTE PT IN STABLE CONDITION. WILL ENDORSE TO AM RN FOR ANGE
--- NOTE | 2021-05-31 07:21 | NUR ---
MS RN OPENING NOTES RECEIVED PATIENT AWAKE IN BED RESTING, A/O X1-2. IN NO ACUTE DISTRESS NOTED. NO S/S OF PAIN NOTED AT THIS TIME. ON 2L OXYGEN VIA NC, NO SHORTNESS OF BREATH NOTED. IV ACCESS LAC #20G, INTACT, PATENT AND FLUSHING WELL. NOTED WITH CHEST TUBE, RIGHT PLEURAL SPACE, IN PLACE AND DRAINING WELL, WITH ARCHER CATHETER IN PLACE AND DRAINING WELL. FALL AND SAFETY MEASURES IN PLACE, BED ALARM ON, BED IN LOW AND LOCKED POSITION, CALL LIGHT AND TABLE WITHIN EASY REACH, SIDE RAILS UP X2. WILL CONTINUE TO MONITOR PATIENT ACCORDINGLY.
[2021-05-31 07:28] LABS: BASOPHILS # (AUTO) 0.1 K/uL (0.0-0.2); BASOPHILS % (AUTO) 0.3 % (0.0-2.0); EOSINOPHILS % (AUTO) 0.5 % (0.0-6.0); HEMATOCRIT 35 % (39-51); HEMOGLOBIN 11.3 g/dL (13.5-17.5); LYMPHOCYTES # (AUTO) 1.3 K/uL (0.8-4.8); LYMPHOCYTES % (AUTO) 6.1 % (20.0-44.0); MEAN CORPUSCULAR HGB CONC 33 g/dl (31.0-36.0); MEAN CORPUSCULAR VOLUME 90 fL (80-96); MONOCYTES # (AUTO) 1.2 K/uL (0.1-1.30); MONOCYTES % (AUTO) 5.8 % (2.0-12.0); NEUTROPHILS # (AUTO) 18.2 K/uL (1.8-8.9); NEUTROPHILS % (AUTO) 87.3 % (43.0-81.0); PLATELET COUNT (AUTO) 483 K/uL (150-450); RED BLOOD CELL COUNT(AUTO) 3.85 MIL/uL (4.5-6.0); WHITE BLOOD COUNT (AUTO) 20.8 K/uL (4.3-11.0)
[2021-05-31 07:29] LABS: CALCIUM, SERUM 8.2 mg/dL (8.5-10.1); CREATININE 0.9 mg/dL (0.6-1.3); POTASSIUM 3.5 mmol/L (3.5-5.1)
[2021-05-31] MEDS: PANTOPRAZOLE 40 MG TABLET.DR PO SCH (07:32)
[2021-05-31] MEDS: ENSURE ENLIVE 237 ML LIQUID (VANILLA) PO SCH ×2 (07:33→16:59)
[2021-05-31 08:00] VITALS: BP 130/70
[2021-05-31] MEDS: THIAMINE HCL 100 MG TABLET PO SCH (08:13)
[2021-05-31 08:52] VITALS: BP 130/70
--- NOTE | 2021-05-31 13:11 | NUR ---
RN NOTES SPECIMEN COLLECTED FOR UA PROFILE AND CULTURE. LAB INFORMED FOR WATERSHED MANAGER SPOKE WITH SHERI.
[2021-05-31 15:49] VITALS: BP 113/64
--- NOTE | 2021-05-31 18:35 | NUR ---
MS RN CLOSING NOTES PATIENT AWAKE IN BED RESTING, A/O X1-2. IN NO ACUTE DISTRESS NOTED. NO S/S OF PAIN NOTED AT THIS TIME. ON 2L OXYGEN VIA NC, NO SHORTNESS OF BREATH NOTED. IV ACCESS LAC #20G, INTACT, PATENT AND FLUSHING WELL. NOTED WITH CHEST TUBE, RIGHT PLEURAL SPACE, IN PLACE AND DRAINING WELL, WITH ARCHER CATHETER IN PLACE AND DRAINING WELL. FALL AND SAFETY MEASURES IN PLACE, BED ALARM ON, BED IN LOW AND LOCKED POSITION, CALL LIGHT AND TABLE WITHIN EASY REACH, SIDE RAILS UP X2. ALL NEEDS ATTENDED AND MET, DUE MEDS GIVEN ORDERED. WILL ENDORSE TO ONCOMING SHIFT FOR ANGE.
[2021-05-31 20:00] VITALS: BP 126/68
--- NOTE | 2021-05-31 20:00 | NUR ---
MS RN OPENING NOTES: RECEIVED PATIENT AWAKE IN BED, HOB AT 45 DEGREE, ON O2 INHALATION AT 2LPM SATURATING WELL, NO SOB WAS OBSERVED, PATIENT ON ARCHER CATHETER WITH 100CC URINE OUTPUT, ON WITH LEFT CHEST TUBE DRAINAGE SUCTION ON MODERATE BASELINE AT 950CC, PATIENT WITH IV LINE AT LAC#20SL, PATIENT KEPT CLEAN AND DRY ALL NEEDS MET WILL CONTINUE TO MONITOR.
[2021-05-31 20:17] LABS: BILIRUBIN,URINE NEGATIVE (NEGATIVE); COLOR,URINE YELLOW (YELLOW); LEUKOCYTE ESTERASE ,URINE NEGATIVE (NEGATIVE); NITRITE, URINE NEGATIVE (NEGATIVE); PROTEIN,URINE TRACE mg/dl (NEGATIVE); UGLUCOSE NEGATIVE (NEGATIVE); UROBILINOGEN,URINE 0.2 EU/dL (0.2)
[2021-05-31 20:34] LABS: BACTERIA,URINE None seen /HPF (None Seen); SQUAMOUS EPITHELIAL CELL,UR 0-2 /HPF (None Seen); WBC,URINE 0-2 /HPF (0-3)
[2021-06-01] MEDS: MEROPENEM 1 G in IV NS 0.9% 100 ML IV SCH ×3 (05:24→21:11)
[2021-06-01 06:26] LABS: BASOPHILS # (AUTO) 0.1 K/uL (0.0-0.2); BASOPHILS % (AUTO) 0.5 % (0.0-2.0); EOSINOPHILS % (AUTO) 1.7 % (0.0-6.0); HEMATOCRIT 33 % (39-51); HEMOGLOBIN 11.1 g/dL (13.5-17.5); LYMPHOCYTES # (AUTO) 1.6 K/uL (0.8-4.8); LYMPHOCYTES % (AUTO) 10.1 % (20.0-44.0); MEAN CORPUSCULAR HGB CONC 33 g/dl (31.0-36.0); MEAN CORPUSCULAR VOLUME 89 fL (80-96); MONOCYTES # (AUTO) 1.1 K/uL (0.1-1.30); MONOCYTES % (AUTO) 7.2 % (2.0-12.0); NEUTROPHILS # (AUTO) 12.4 K/uL (1.8-8.9); NEUTROPHILS % (AUTO) 80.5 % (43.0-81.0); PLATELET COUNT (AUTO) 432 K/uL (150-450); RED BLOOD CELL COUNT(AUTO) 3.74 MIL/uL (4.5-6.0); WHITE BLOOD COUNT (AUTO) 15.4 K/uL (4.3-11.0)
--- NOTE | 2021-06-01 07:30 | NUR ---
RN MS NOTES PT IN BED, ASLEEP, EASY TO AROUSE, ALERT TO NAME, NO SIGN OF PAIN OR DISTRESS, CALL LIGHT WITHI REACH, F/C AND CHEST TUBE IN PLACE, CALL LIGHT WITHIN REACH, KEPT WARM AND COMFORTABLE IN BED.
--- NOTE | 2021-06-01 08:01 | NUR ---
RN CLOSING NOTES: PATIENT SLEEP IN BED COMFORTABLY, AROUSABLE TO VERBAL STIMULI, BED IN LOW POSITION, CALL LIGHTS WITHIN REACH, NO COMPLAIN OF PAIN AND DISCOMFORT AT THIS TIME, PATIENT UNDERGO CT CHEST WITHOUT CONTRAST WITH PENDING RESULT, WITH RIGHT ABDOMINAL DRAINAGE LEVEL REMAINS AT 950 NO OUTPUT WAS OBSERVED, PATIENT WITH FC-500 URINE OUTPUT, PATIENT ON O2 INHALATION AT 2LPM SATURATING WELL, KEPT CLEAN AND DRY ALL NEEDS MET ENDORSE TO INCOMING SHIFT.
[2021-06-01] MEDS: ENSURE ENLIVE 237 ML LIQUID (VANILLA) PO SCH ×2 (08:03→17:12)
[2021-06-01] MEDS: PANTOPRAZOLE 40 MG TABLET.DR PO SCH (08:04)
[2021-06-01] MEDS: THIAMINE HCL 100 MG TABLET PO SCH (08:04)
[2021-06-01 08:20] VITALS: BP 117/76
[2021-06-01] MEDS ORDERED: ANESTHESIA TRAY IN PYXIS 1 EA TRAY MC ONE (13:39)
[2021-06-01 16:06] VITALS: BP 122/74
--- NOTE | 2021-06-01 18:14 | NUR ---
RN MS NOTES PT IN BED, RESTING, ALERT TO NAME, NO SIGN OF PAIN OR DISTRESS, CALL LIGHT WITHIN REACH, F/C IN PLACE, DRAINING WELL, CHEST TUBE IN PLACE, PM CARE PROVIDED, ALL NEEDS ATTENDED.
[2021-06-01 20:30] VITALS: BP 129/70
--- NOTE | 2021-06-01 20:48 | NUR ---
MS RN OPENING NOTES: RECEIVED PATIENT AWAKE IN BED, BED IN LOW POSTION, CALL LIGHTS WITHIN REACH, NO COMPLAIN OF PAIN AND DISCOMFORT AT THIS TIME, ON ARCHER CATHETER WITH 100C CURINE OUTPUT, ON PRIGHT PIGTAIL ABDOMINAL DRAINAGE AT 950CC NO OUTPUT DURING MORNING SHIFT, PATIENT ON O2 INHALATION AT 2LPM SATURATING WELL, PATIENT KEPT CLEAN AND DRY ALL NEEDS MET WILL CONTINUE TO MONITOR.
--- NOTE | 2021-06-01 23:15 | NUR ---
RN NOTES: TRANSFER CARE REPORT /ENDORSEMENT GIVEN TO ROSALIA HERCULES
--- NOTE | 2021-06-01 23:15 | NUR ---
PATIENT RECEIVED AT THIS TIME.
[2021-06-02] MEDS: MEROPENEM 1 G in IV NS 0.9% 100 ML IV SCH ×2 (05:19→22:47)
--- NOTE | 2021-06-02 05:54 | NUR ---
MS RN NOTE IV OCCLUDED. TRIED TO INSERT A NEW ONE, PATIENT IS HARD STICK, PER NAVARRO SAME THING HAPPENED YESTERDAY NIGHT ANS PATIENT REALLY IS HARD STICK. MULTIPLE IV ATTEMP. CHARGE SAID TO PUT IN NOTES AND ENDORSE FOR MIDLINE INSERTION. SCHEDULED 0500 AM REMY NOT HANGED.
[2021-06-02 07:05] LABS: BASOPHILS % (AUTO) 0.2 % (0.0-2.0); EOSINOPHILS % (AUTO) 2.6 % (0.0-6.0); HEMATOCRIT 34 % (39-51); HEMOGLOBIN 11.2 g/dL (13.5-17.5); LYMPHOCYTES # (AUTO) 1.2 K/uL (0.8-4.8); LYMPHOCYTES % (AUTO) 8.4 % (20.0-44.0); MEAN CORPUSCULAR HGB CONC 33 g/dl (31.0-36.0); MEAN CORPUSCULAR VOLUME 88 fL (80-96); MONOCYTES # (AUTO) 0.8 K/uL (0.1-1.30); MONOCYTES % (AUTO) 5.7 % (2.0-12.0); NEUTROPHILS # (AUTO) 12.1 K/uL (1.8-8.9); NEUTROPHILS % (AUTO) 83.1 % (43.0-81.0); PLATELET COUNT (AUTO) 450 K/uL (150-450); WHITE BLOOD COUNT (AUTO) 14.6 K/uL (4.3-11.0)
--- NOTE | 2021-06-02 07:36 | NUR ---
MS RN CLOSING REPORT GIVEN TO DANII. NO SIGNIFICANT CHANGE.
--- NOTE | 2021-06-02 07:40 | NUR ---
RN OPENING NOTES PATIENT AWAKE IN BED RESTING, A/O X 1-2. NO S/S OF PAIN NOTED AT THIS TIME. PATIENT ON 2L OXYGEN VIA NC NO DISTRESS OR SHORTNESS OF BREATH NOTED. NO IV ACCESS. PATIENT HAVE ARCHER CATHETER, IN PLACE AND DRAINING WELL. PATIENT HAVE A RIGHT PLEURAL SPACE CHEST TUBE, IN PLACE AND DRAINING WELL. FALL AND SAFETY MEASURES IN PLACE, BED ALARM ON, BED IN LOW AND LOCK POSITION, CALL LIGHT AND TABLE WITHIN EASY REACH, SIDE RAILS UP X2. WILL CONTINUE TO MONITOR.
[2021-06-02 07:46] LABS: ALBUMIN 1.8 g/dL (3.4-5.0); BILIRUBIN,TOTAL 0.4 mg/dL (0.2-1.0); CALCIUM, SERUM 8.5 mg/dL (8.5-10.1); CREATININE 0.8 mg/dL (0.6-1.3); MAGNESIUM 1.9 mg/dL (1.8-2.4); PHOSPHORUS 3.1 mg/dL (2.5-4.9); POTASSIUM 3.4 mmol/L (3.5-5.1)
[2021-06-02 08:12] VITALS: BP 121/80
[2021-06-02] MEDS: THIAMINE HCL 100 MG TABLET PO SCH (09:12)
[2021-06-02] MEDS: PANTOPRAZOLE 40 MG TABLET.DR PO SCH (09:12)
[2021-06-02] MEDS: ENSURE ENLIVE 237 ML LIQUID (VANILLA) PO SCH ×2 (09:14→17:36)
[2021-06-02] MEDS ORDERED: POTASSIUM CHLORIDE 20 MEQ TAB.PRT.SR PO SCH (10:00)
[2021-06-02 16:08] VITALS: BP 124/84
--- NOTE | 2021-06-02 18:31 | NUR ---
RN NOTE PATIENT 1300 IV MEROPENEM WAS NOT ADMINISTER BECAUSE PATIENT DOES NOT HAVE IV ACCESS, WAITING FOR MIDLINE INSERTION.
--- NOTE | 2021-06-02 19:00 | NUR ---
RN CLOSING NOTES PATIENT AWAKE IN BED RESTING, A/O X 1-2. NO S/S OF PAIN NOTED AT THIS TIME. PATIENT ON 2L OXYGEN VIA NC NO DISTRESS OR SHORTNESS OF BREATH NOTED. NO IV ACCESS. PATIENT HAVE ARCHER CATHETER, IN PLACE AND DRAINING WELL. PATIENT HAVE A RIGHT PLEURAL SPACE CHEST TUBE, IN PLACE AND DRAINING WELL. FALL AND SAFETY MEASURES IN PLACE, BED ALARM ON, BED IN LOW AND LOCK POSITION, CALL LIGHT AND TABLE WITHIN EASY REACH, SIDE RAILS UP X2. WILL ENDORSE TO NIGHT.
--- NOTE | 2021-06-02 19:40 | NUR ---
MS RN OPENING NOTES RECEIVED PATIENT LAYING AWAKE IN BED. A/OX1-2. PATIENT WITH REGULAR AND UNLABORED BREATHING ON 2LPM VIA NASAL CANULA, TOLERATED WELL. NO SIGNS AND SYMPTOMS OF DISTRESS NOTED AT THIS TIME. NO COMPLAINS OF PAIN OR DISCOMFORT AT THIS TIME. IV ACCESS KATHRYN MIDLINE SL. IV ACCESS PATENT AND INTACT. SAFETY PRECAUTIONS ENFORCED WITH BED LOCKED AND AT LOWEST POSITION. CALL LIGHT WITHIN REACH AT ALL TIMES. WILL CONTINUE TO MONITOR PATIENT.
[2021-06-02 20:00] VITALS: BP 120/68
[2021-06-03] MEDS: MEROPENEM 1 G in IV NS 0.9% 100 ML IV SCH ×3 (04:25→21:01)
[2021-06-03 06:46] LABS: BASOPHILS # (AUTO) 0.1 K/uL (0.0-0.2); BASOPHILS % (AUTO) 0.6 % (0.0-2.0); EOSINOPHILS % (AUTO) 2.4 % (0.0-6.0); HEMATOCRIT 33 % (39-51); HEMOGLOBIN 11.3 g/dL (13.5-17.5); LYMPHOCYTES # (AUTO) 1.1 K/uL (0.8-4.8); LYMPHOCYTES % (AUTO) 10.8 % (20.0-44.0); MEAN CORPUSCULAR HGB CONC 35 g/dl (31.0-36.0); MEAN CORPUSCULAR VOLUME 88 fL (80-96); MONOCYTES # (AUTO) 0.7 K/uL (0.1-1.30); MONOCYTES % (AUTO) 6.7 % (2.0-12.0); NEUTROPHILS # (AUTO) 8.2 K/uL (1.8-8.9); NEUTROPHILS % (AUTO) 79.5 % (43.0-81.0); PLATELET COUNT (AUTO) 426 K/uL (150-450); RED BLOOD CELL COUNT(AUTO) 3.71 MIL/uL (4.5-6.0); WHITE BLOOD COUNT (AUTO) 10.3 K/uL (4.3-11.0)
--- NOTE | 2021-06-03 07:05 | NUR ---
MS RN CLOSING NOTES PATIENT STILL LAYING AWAKE IN BED. A/OX1-2. PATIENT WITH REGULAR AND UNLABORED BREATHING ON 2LPM VIA NASAL CANULA, TOLERATED WELL. NO SIGNS AND SYMPTOMS OF DISTRESS NOTED AT THIS TIME. NO COMPLAINS OF PAIN OR DISCOMFORT AT THIS TIME. IV ACCESS KATHRYN MIDLINE SL. IV ACCESS PATENT AND INTACT. SAFETY PRECAUTIONS ENFORCED WITH BED LOCKED AND AT LOWEST POSITION. CALL LIGHT WITHIN REACH AT ALL TIMES. WILL ENDORSE CONTINUITY OF CARE TO DAY SHIFT NURSE.
[2021-06-03 07:17] LABS: CALCIUM, SERUM 8.4 mg/dL (8.5-10.1); CREATININE 0.8 mg/dL (0.6-1.3); MAGNESIUM 2.1 mg/dL (1.8-2.4); PHOSPHORUS 3.9 mg/dL (2.5-4.9); POTASSIUM 3.7 mmol/L (3.5-5.1)
--- NOTE | 2021-06-03 07:20 | NUR ---
RN OPENING NOTE- PT AWAKE IN BED RESTING, A/O X 1-2. NO S/S OF PAIN NOTED AT THIS TIME. PATIENT ON 2L OXYGEN VIA NC NO DISTRESS OR SHORTNESS OF BREATH NOTED. NO IV ACCESS. NOTED AWAITING MIDLINE. PATIENT HAS ARCHER CATHETER IN PLACE AND DRAINING WELL. PATIENT HAS A RIGHT CHEST TUBE, IN PLACE AND DRAINING WELL. FALL AND SAFETY MEASURES IN PLACE, BED ALARM ON, BED IN LOW AND LOCK POSITION, CALL LIGHT AND TABLE WITHIN EASY REACH, SIDE RAILS UP X2. WILL CONTINUE TO MONITOR. Addendum: 06/03/21 at 0734 by ARMIN RINCON RN ADDENDUM - KATHRYN MIDLINE PLACED
[2021-06-03] MEDS: PANTOPRAZOLE 40 MG TABLET.DR PO SCH (07:42)
[2021-06-03 08:00] VITALS: BP 138/79
[2021-06-03] MEDS: ENSURE ENLIVE 237 ML LIQUID (VANILLA) PO SCH ×2 (08:57→17:21)
[2021-06-03] MEDS: THIAMINE HCL 100 MG TABLET PO SCH (08:58)
[2021-06-03] MEDS ORDERED: MIDAZOLAM HCL 2 MG/2ML VIAL IV PRN (09:30)
[2021-06-03] MEDS ORDERED: NALOXONE PREFILLED SYRINGE 2 MG/2 ML SYRINGE IV PRN (09:30)
[2021-06-03] MEDS ORDERED: FLUMAZENIL 0.5 MG VIAL IV PRN (09:30)
[2021-06-03 10:19] VITALS: BP 113/66
--- NOTE | 2021-06-03 10:20 | NUR ---
RN NOTE- PT TO RADIOLOGY
[2021-06-03 10:50] VITALS: BP 106/66
[2021-06-03] MEDS: FENTANYL PF 250MCG/5ML AMPUL IV PRN ×2 (10:51→10:52)
--- NOTE | 2021-06-03 12:52 | NUR ---
RN NOTE- RADIOLOGY CALLED. TWO PIGTAILS PLACED BY RADIOLOGY. ORIGINAL CHEST TUBE STILL TO LOW SUCTION, TWO NEW CHEST TUBES TO GRAVITY. PT STILL OFF UNIT
--- NOTE | 2021-06-03 13:10 | NUR ---
RN NOTE- PT BACK IN ROOM. CHEST TUBES IN PLACE , DRESSINGS DRY / INTACT. TWO NEW CHEST TUBES (#2 #3)TO GRAVITY DRAINING FLUIDS. ORIGINAL CHEST TUBE (#1) TO LOW SUCTION. NO DRAINAGE. NO DISTRESS, O2 AT 3LPM VIA NC, SATS 98%. EATING LUNCH. MONITOR ASSIST PRN
[2021-06-03 16:00] VITALS: BP 111/69
--- NOTE | 2021-06-03 18:41 | NUR ---
RN [id number] NOTE- PT AWAKE IN BED RESTING, A/O X 1-2. NO S/S OF PAIN NOTED AT THIS TIME. PATIENT ON 2L OXYGEN VIA NC NO DISTRESS OR SHORTNESS OF BREATH NOTED. PATIENT HAS ARCHER CATHETER IN PLACE AND DRAINING WELL. PATIENT HAS THREE CHEST TUBES #2 AND #3 DRAINING WELL. #1 NO OUTPUT THIS SHIFT. FALL AND SAFETY MEASURES IN PLACE, BED ALARM ON, BED IN LOW AND LOCK POSITION, CALL LIGHT AND TABLE WITHIN EASY REACH, SIDE RAILS UP X2. WILL CONTINUE TO MONITOR.
--- NOTE | 2021-06-03 19:15 | NUR ---
MS RN OPENING NOTES: RECEIVED PATIENT IN BED, AWAKE, ALERT BUT NON VERBAL. NO S/S OF DISTRESS NOTED. NO COMPLAIN OF PAIN. CALL LIGHT WITHIN REACH. BED ALARM ON. BED IN LOWEST AND LOCKED POSITION. HOB ELEVATED. WITH RIGHT CHES TUBES X3 INTACT. WITH ARCHER CATHETER INTACT, DRAINING YELLOW URINE OUTPUT.
[2021-06-03 20:00] VITALS: BP_SYST 122; BP_SYST 124; BP_DIAS 67; BP_DIAS 91
[2021-06-03] MEDS: IBUPROFEN 600 MG TABLET PO PRN (21:01)
[2021-06-04] MEDS: MEROPENEM 1 G in IV NS 0.9% 100 ML IV SCH ×3 (04:57→21:41)
[2021-06-04 07:10] LABS: BASOPHILS % (AUTO) 0.6 % (0.0-2.0); EOSINOPHILS % (AUTO) 2.8 % (0.0-6.0); HEMATOCRIT 33 % (39-51); HEMOGLOBIN 11.1 g/dL (13.5-17.5); LYMPHOCYTES # (AUTO) 1.2 K/uL (0.8-4.8); LYMPHOCYTES % (AUTO) 14.5 % (20.0-44.0); MEAN CORPUSCULAR HGB CONC 34 g/dl (31.0-36.0); MEAN CORPUSCULAR VOLUME 88 fL (80-96); MONOCYTES # (AUTO) 0.6 K/uL (0.1-1.30); MONOCYTES % (AUTO) 8.1 % (2.0-12.0); NEUTROPHILS # (AUTO) 5.9 K/uL (1.8-8.9); PLATELET COUNT (AUTO) 414 K/uL (150-450); RED BLOOD CELL COUNT(AUTO) 3.69 MIL/uL (4.5-6.0)
--- NOTE | 2021-06-04 07:23 | NUR ---
RN OPENING NOTE- PT AWAKE IN BED RESTING, AWAKE THOUGH NON VERBAL. UNDERSTANDS AND MAKES NEEDS KNOWN NO S/S OF PAIN NOTED AT THIS TIME. PATIENT ON 2L OXYGEN VIA NC NO DISTRESS OR SHORTNESS OF BREATH NOTED. PATIENT HAS ARCHER CATHETER IN PLACE AND DRAINING WELL. PATIENT HAS THREE CHEST TUBES #2 AND #3 DRAINING WELL. #1 NO OUTPUT. FALL AND SAFETY MEASURES IN PLACE, BED ALARM ON, BED IN LOW AND LOCK POSITION, CALL LIGHT AND TABLE WITHIN EASY REACH, SIDE RAILS UP X2. WILL CONTINUE TO MONITOR.
[2021-06-04 07:29] LABS: CALCIUM, SERUM 8.5 mg/dL (8.5-10.1); CREATININE 0.8 mg/dL (0.6-1.3); MAGNESIUM 1.9 mg/dL (1.8-2.4); PHOSPHORUS 3.6 mg/dL (2.5-4.9); POTASSIUM 3.5 mmol/L (3.5-5.1)
[2021-06-04] MEDS: PANTOPRAZOLE 40 MG TABLET.DR PO SCH (07:47)
[2021-06-04] MEDS: ENSURE ENLIVE 237 ML LIQUID (VANILLA) PO SCH ×2 (08:13→16:47)
[2021-06-04] MEDS: THIAMINE HCL 100 MG TABLET PO SCH (08:44)
--- NOTE | 2021-06-04 10:00 | NUR ---
RN NOTE- DR BOB ORDERED CHEST TUBES TO BE ATTACHED TO LOW SUCTION. OBTAINED SUPPLIES AND FACILITATED.
--- NOTE | 2021-06-04 15:45 | NUR ---
RN NOTE- DR FIGUEROA WANTED SAMPLE FROM TWO NEW CHEST TUBES TO BE SENT FOR CX. ASPIRATED AND OBTAINED. TOOK CX TO LAB.
--- NOTE | 2021-06-04 18:49 | NUR ---
RN CLOSING NOTE- PT AWAKE IN BED RESTING, AWAKE THOUGH NON VERBAL. UNDERSTANDS AND MAKES NEEDS KNOWN NO S/S OF PAIN NOTED AT THIS TIME. PATIENT ON 2L OXYGEN VIA NC NO DISTRESS OR SHORTNESS OF BREATH NOTED. PATIENT HAS ARCHER CATHETER IN PLACE AND DRAINING WELL. PATIENT HAS THREE CHEST TUBES #2 AND #3 DRAINING WELL. #1 NO OUTPUT. FALL AND SAFETY MEASURES IN PLACE, BED ALARM ON, BED IN LOW AND LOCK POSITION, CALL LIGHT AND TABLE WITHIN EASY REACH, SIDE RAILS UP X2. WILL CONTINUE TO MONITOR. CHEST TUBE CX PENDING.
--- NOTE | 2021-06-04 19:20 | NUR ---
MS RN OPENING NOTES: RECEIVED PATIENT IN BED, AWAKE. NO S/S OF DISTRESS NOTED. NO COMPLAIN OF PAIN. CALL LIGHT WITHIN REACH. BED ALARM ON. BED IN LOWEST AND LOCKED POSITION. HOB ELEVATED AT ALL TIMES. WITH 3 CHEST TUBES INTACT, CONNECTED TO LOW CONTINUOUS SUCTION. DRESSINGS ARE CLEAN, DRY AND INTACT. WITH ARCHER CATHETER INTACT, DRAINING CLEAR YELLOW URINE OUTPUT.
[2021-06-04 20:00] VITALS: BP 118/73
[2021-06-05] MEDS: MEROPENEM 1 G in IV NS 0.9% 100 ML IV SCH ×3 (05:35→21:05)
[2021-06-05 06:18] LABS: BASOPHILS # (AUTO) 0.1 K/uL (0.0-0.2); BASOPHILS % (AUTO) 0.9 % (0.0-2.0); EOSINOPHILS % (AUTO) 1.8 % (0.0-6.0); HEMATOCRIT 36 % (39-51); LYMPHOCYTES # (AUTO) 1.4 K/uL (0.8-4.8); LYMPHOCYTES % (AUTO) 12.2 % (20.0-44.0); MEAN CORPUSCULAR HGB CONC 33 g/dl (31.0-36.0); MEAN CORPUSCULAR VOLUME 88 fL (80-96); MONOCYTES # (AUTO) 0.7 K/uL (0.1-1.30); MONOCYTES % (AUTO) 6.2 % (2.0-12.0); NEUTROPHILS # (AUTO) 8.8 K/uL (1.8-8.9); NEUTROPHILS % (AUTO) 78.9 % (43.0-81.0); PLATELET COUNT (AUTO) 452 K/uL (150-450); RED BLOOD CELL COUNT(AUTO) 4.08 MIL/uL (4.5-6.0); WHITE BLOOD COUNT (AUTO) 11.2 K/uL (4.3-11.0)
[2021-06-05 06:43] LABS: CALCIUM, SERUM 8.7 mg/dL (8.5-10.1); CREATININE 0.8 mg/dL (0.6-1.3); MAGNESIUM 2.1 mg/dL (1.8-2.4); PHOSPHORUS 3.8 mg/dL (2.5-4.9); POTASSIUM 3.6 mmol/L (3.5-5.1)
[2021-06-05] MEDS: PANTOPRAZOLE 40 MG TABLET.DR PO SCH (07:50)
[2021-06-05] MEDS: ENSURE ENLIVE 237 ML LIQUID (VANILLA) PO SCH ×2 (07:54→16:53)
[2021-06-05 08:00] VITALS: BP 114/79
--- NOTE | 2021-06-05 08:04 | NUR ---
RN Opening Note Patient received in bed AO x 2 non verbal, able to responds all stimuli. Respiratory even and unlabored on room air, still remains 3 chest tube. No distress observed. Skin is warm to touch, keep clean/dry, intact IV site. Kept elevated HOB for ensure airway/aspiration precaution and remain lower position of the bed for safety. call light within reach, will continue to monitor.
[2021-06-05] MEDS: THIAMINE HCL 100 MG TABLET PO SCH (09:01)
[2021-06-05 12:00] VITALS: BP 125/89
--- NOTE | 2021-06-05 12:31 | NUR ---
Patient pulled out midlne on left upper arm, reinserted peripheral IV on right WONG cami 22. Good patent with saline flash.
[2021-06-05] MEDS: IBUPROFEN 600 MG TABLET PO PRN ×2 (14:34→20:18)
--- NOTE | 2021-06-05 18:05 | NUR ---
RN Closing Note Patient is resting in bed, no distress observed. Respiratory even and unlabored with oxygen. Skin is warm to touch, keep clean/dry. Kept elevated HOB for ensure airway and aspiration precaution, Also lower position of the bed for safety. Chest tube remains intact, output: #1-0cc, #2-40cc, and #3-20cc. Call light within reach, all needs met. will endorse cnc machinist 2nd shift. Addendum: 06/05/21 at 1835 by SINGH GALINDO RN error
--- NOTE | 2021-06-05 18:35 | NUR ---
RN Closing Note Patient is resting in bed, no distress observed. Respiratory even and unlabored on room air. Skin is warm to touch, keep clean/dry. Kept elevated HOB for ensure airway and aspiration precaution, Also lower position of the bed for safety. Chest tube remains intact, output: #1-0cc, #2-40cc, and #3-20cc. Call light within reach, all needs met. will endorse power and recovery shift engineer.
--- NOTE | 2021-06-05 19:45 | NUR ---
MS RN OPENING NOTES: RECEIVED PT IN ASSIGNED BED, AWAKE, ALERT AND ORIENTED X2. PT REMAINS NON-VERBAL, HOB ELEVATED FOR ASPIRATION PRECAUTION, RIGHT CHEST TUBES X3 INTACT. ARCHER CATHETER INTACT, IV INTACT. BED IS LOCKED AND IN LOWEST POSITION, BED ALARM IS ON. PT IS PROVIDED A SAFE AND COMFORTABLE ENVIRONMENT. WILL CONTINUE TO MONITOR PT FOR ANY CHANGES IN CURRENT CONDITION THROUGHOUT MY SHIFT.
[2021-06-05 20:00] VITALS: BP 118/81
--- NOTE | 2021-06-05 20:39 | NUR ---
MS RN NOTES: PT C/O PAIN, UNABLE TO DETERMINE LOCATION, FLACC SCORE: 3. PT GIVEN 600MG PO MOTRIN @ 2019. WILL RE-EVALUATE THE EFFECTIVENESS OF THE MEDICATION GIVEN @ 2049. WILL CONTINUE TO MONITOR PT FOR ANY CHANGES IN CURRENT CONDITION THROUGHOUT MY SHIFT.
[2021-06-06] MEDS: MEROPENEM 1 G in IV NS 0.9% 100 ML IV SCH ×3 (05:08→21:18)
--- NOTE | 2021-06-06 05:24 | NUR ---
MS RN NOTES: CHEST TUBE #1 NO OUTPUT RECORDED, CHEST TUBE # 2 CURRENT OUTPUT: 196CC, CHEST TUBE #3 CURRENT OUTPUT: 114CC.
[2021-06-06 06:45] LABS: BASOPHILS # (AUTO) 0.1 K/uL (0.0-0.2); BASOPHILS % (AUTO) 1.2 % (0.0-2.0); EOSINOPHILS % (AUTO) 5.1 % (0.0-6.0); HEMATOCRIT 34 % (39-51); HEMOGLOBIN 11.5 g/dL (13.5-17.5); LYMPHOCYTES # (AUTO) 1.3 K/uL (0.8-4.8); LYMPHOCYTES % (AUTO) 18.4 % (20.0-44.0); MEAN CORPUSCULAR HGB CONC 34 g/dl (31.0-36.0); MEAN CORPUSCULAR VOLUME 89 fL (80-96); MONOCYTES # (AUTO) 0.6 K/uL (0.1-1.30); MONOCYTES % (AUTO) 7.9 % (2.0-12.0); NEUTROPHILS # (AUTO) 4.9 K/uL (1.8-8.9); NEUTROPHILS % (AUTO) 67.4 % (43.0-81.0); PLATELET COUNT (AUTO) 416 K/uL (150-450); RED BLOOD CELL COUNT(AUTO) 3.85 MIL/uL (4.5-6.0); WHITE BLOOD COUNT (AUTO) 7.3 K/uL (4.3-11.0)
--- NOTE | 2021-06-06 07:00 | NUR ---
RN MS CLOSING NOTES: PT IS RESTING COMFORTABLY IN ASSIGNED BED, REMAINS NON-VERBAL, ALERT AND ORIENTED X1. PT HAS X3 CHEST TUBES, #2 AND # 3 CHEST TUBES DRAINING CORRECTLY, #1 CHEST TUBE NO OUTPUT. HOB IS ELEVATED FOR ASPIRATION PRECAUTION, BED IS LOWERED AND LOCKED, BED ALARM ON. PT PROVIDED A SAFE AND COMFORTABLE ENVIRONMENT. ALL NEEDS ARE MET. WILL ENDORSE TO INCOMING SHIFT.
[2021-06-06 07:24] LABS: BILIRUBIN,TOTAL 0.4 mg/dL (0.2-1.0); CALCIUM, SERUM 8.4 mg/dL (8.5-10.1); CREATININE 0.9 mg/dL (0.6-1.3); MAGNESIUM 2.1 mg/dL (1.8-2.4); POTASSIUM 3.3 mmol/L (3.5-5.1); TOTAL PROTEIN, SERUM 7.4 g/dL (6.4-8.2)
--- NOTE | 2021-06-06 07:30 | NUR ---
MS RN OPENING NOTES RECEIVED PT IN BED, AWAKE, ALERT AND ORIENTED X1. PT REMAINS NON-VERBAL, HOB ELEVATED FOR ASPIRATION PRECAUTION, RIGHT CHEST TUBES X3 INTACT. ARCHER CATHETER INTACT, IV ACCESS ON RIGHT HAND G#22, PATENT AND FLUSHES WELL. ON RA TOLERATING WELL, NO SOB NOTED. BED IS LOCKED AND IN LOWEST POSITION, BED ALARM IS ON. SIDE RAILS UP X 2, CALL LIGHT WITHIN EASY REACH. WILL CONTINUE TO MONITOR ACCORDINGLY.
[2021-06-06] MEDS: THIAMINE HCL 100 MG TABLET PO SCH (08:22)
[2021-06-06] MEDS: PANTOPRAZOLE 40 MG TABLET.DR PO SCH (08:23)
[2021-06-06] MEDS: ENSURE ENLIVE 237 ML LIQUID (VANILLA) PO SCH ×2 (08:23→17:10)
[2021-06-06 08:49] VITALS: BP 123/64
[2021-06-06] MEDS ORDERED: POTASSIUM CHLORIDE 20 MEQ TAB.PRT.SR PO SCH (10:00)
[2021-06-06 16:00] VITALS: BP 128/76
--- NOTE | 2021-06-06 16:45 | NUR ---
RN NOTES NOTED WITH NON BLANCHABLE REDNESS ON SACRAL AREA. CLEANSE WITH NS, PATTED DRY, COVERED WITH MEPILEX. WOUND CARE CONSULT TRIGGERED FOR EVALUATION AND TREATMENT. Addendum: 06/06/21 at 1715 by CARMELINA GAUTHIER RN PICTURE TAKEN AND FILED TO PATIENT'S CHART
--- NOTE | 2021-06-06 18:29 | NUR ---
MS RN CLOSING NOTES PT IN BED, AWAKE, ALERT AND ORIENTED X1. PT REMAINS NON-VERBAL, HOB ELEVATED FOR ASPIRATION PRECAUTION, RIGHT CHEST TUBES X3 INTACT. ARCHER CATHETER INTACT, IV ACCESS ON RIGHT HAND G#22, PATENT AND FLUSHES WELL. ON RA TOLERATING WELL, NO SOB NOTED. BED IS LOCKED AND IN LOWEST POSITION, BED ALARM IS ON. SIDE RAILS UP X 2, CALL LIGHT WITHIN EASY REACH. CHEST TUBE OUTPUT RECORDED. ALL NEEDS ATTENDED AND MET. DUE MEDS GIVEN ORDERED. WILL ENDORSE TO ONCOMING SHIFT FOR ANGE.
--- NOTE | 2021-06-06 19:38 | NUR ---
MS RN OPENING NOTES: RECEIVED PATIENT AWAKE IN BED, BED IN LOW POSITION, CALL LIGHTS WITHIN REACH, NO COMPLAIN OF PAIN AND DISCOMFORT AT THIS TIME, ON ROOM AIR SATURATING WELL, WITH CHEST TUBE ON RIGHT CHEST WALL WITH ONGOING DRAINING,ON ARCHER CATHETER - 250CC URINE OUTPUT, CLEAN AND INTACT, WITH IV LINE AT RT HAND #22 SL, PATIENT KEPT CLEAN AND DRY ALL NEEDS MET WILL CONTINUE TO MONITOR
[2021-06-06 20:00] VITALS: BP 128/77
[2021-06-07] MEDS: MEROPENEM 1 G in IV NS 0.9% 100 ML IV SCH ×3 (05:46→12:11)
--- NOTE | 2021-06-07 07:00 | NUR ---
RN NOTES: OBSERVED NO CHANGES IN SURGICAL DRAINAGE FROM BASELINE FROM ALL THREE CONTAINER, CONTAINER 1 REMAINS THE SAME NO OUTPUT SINCE 06/03, DRAINAGE TO BASELINE REMAINS THE SAME, CONTAINER #2 REMAINS THE SAME AT 210CC, CONTAINER #3 REAMAINS THE SAME AT 120, ENDORSE TO INCOMING NURSE.
[2021-06-07 07:08] LABS: CALCIUM, SERUM 8.6 mg/dL (8.5-10.1); CREATININE 0.8 mg/dL (0.6-1.3); PHOSPHORUS 3.1 mg/dL (2.5-4.9); POTASSIUM 3.3 mmol/L (3.5-5.1)
[2021-06-07 07:20] LABS: BASOPHILS # (AUTO) 0.1 K/uL (0.0-0.2); EOSINOPHILS % (AUTO) 2.3 % (0.0-6.0); HEMATOCRIT 35 % (39-51); HEMOGLOBIN 11.6 g/dL (13.5-17.5); LYMPHOCYTES # (AUTO) 1.1 K/uL (0.8-4.8); LYMPHOCYTES % (AUTO) 10.7 % (20.0-44.0); MEAN CORPUSCULAR HGB CONC 34 g/dl (31.0-36.0); MEAN CORPUSCULAR VOLUME 88 fL (80-96); MONOCYTES # (AUTO) 0.6 K/uL (0.1-1.30); MONOCYTES % (AUTO) 5.2 % (2.0-12.0); NEUTROPHILS # (AUTO) 8.6 K/uL (1.8-8.9); NEUTROPHILS % (AUTO) 80.8 % (43.0-81.0); PLATELET COUNT (AUTO) 425 K/uL (150-450); RED BLOOD CELL COUNT(AUTO) 3.94 MIL/uL (4.5-6.0); WHITE BLOOD COUNT (AUTO) 10.7 K/uL (4.3-11.0)
--- NOTE | 2021-06-07 07:30 | NUR ---
MS RN OPENING NOTES RECEIVED PATIENT ON BED, AWAKE, ALERT AND ORIENTED X2. PT REMAINS NON-VERBAL, HOB ELEVATED FOR ASPIRATION PRECAUTION, RIGHT CHEST TUBES X3 INTACT. WITH ARCHER CATHETER INTACT, IV ACCESS ON RIGHT HAND G#22, PATENT AND FLUSHES WELL. ON RA TOLERATING WELL, NO SOB NOTED. NOT IN DISTRESS. SAFETY MEASURES IN PLACED. CALL LIGHT WITHIN REACH. BED ON LOWEST LOCKED POSITION, SIDE RAILS UP X2. WILL CONTINUE TO MONITOR.
--- NOTE | 2021-06-07 07:44 | NUR ---
MS RN CLOSING NOTES: PATIENT WAS AWAKE IN BED,HOB AT 30-45 DEGREE, ON ROOM AIR SATURATING WELL, PATIENT ON ARCHER CATHETER WITH 300URINE OUTPUT, ON ABDOMINAL DRAINAGE, NO OUTPUT WAS OBSERVED, ALL THREE CONTAINER REMAINS AT THE SAME LEVEL, SKIN ASSESSMENT DONE NO BLEED ING WAS OBSERVED, PATIENT KEPT CLEAN AND DRY, ALL NEEDS MET ENDORSED TO INCOMING SHIFT.
[2021-06-07] MEDS: PANTOPRAZOLE 40 MG TABLET.DR PO SCH (08:51)
[2021-06-07] MEDS: THIAMINE HCL 100 MG TABLET PO SCH (08:51)
--- NOTE | 2021-06-07 08:54 | NUR ---
WOUND CARE CONSULT: PT PRESENTS WITH SOME RASH AND EXCORIATED AREAS ON BUTTOCKS. RECOMMENDATIONS MADE FOR SKIN PROTECTION. DISCUSSED WITH NURSING STAFF. MD IN AGREEMENT WITH PLAN OF CARE.
[2021-06-07] MEDS: ENSURE ENLIVE 237 ML LIQUID (VANILLA) PO SCH ×2 (08:57→17:27)
[2021-06-07 09:23] VITALS: BP 137/88
[2021-06-07] MEDS ORDERED: POTASSIUM CHLORIDE 20 MEQ TAB.PRT.SR PO SCH (10:00)
[2021-06-07] MEDS: CLOTRIMAZOLE 1% 15 GM TUBE TP SCH ×2 (10:56→17:29)
[2021-06-07 16:33] VITALS: BP 151/90
[2021-06-07] MEDS ORDERED: VANCOMYCIN 1.25 GM in IV D5W 250 ML IV SCH (17:00)
--- NOTE | 2021-06-07 17:00 | NUR ---
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 MADE AWARE.
--- NOTE | 2021-06-07 19:30 | NUR ---
MS RN CLOSING NOTES PATIENT ON BED AWAKE AND A/O X2. ON ROOM AIR TOLERATING WELL. NO SOB NOTED. NOT IN DISTRESS. WITH NO COMPLAINTS OF PAIN OR DISCOMFORT AT THIS TIME. WITH IV ACCESS AT RIGHT HAND G22 SALINE LOCKED, PATENT AND INTACT. WITH CHEST TUBE X3 IN PLACED. OUTPUT RECORDED. WITH ARCHER CATHETER IN PLACED. CALL LIGHT WITHIN REACH. BED ON HIGH-RICHARDS'S POSITION FOR ASPIRATION PRECAUTION. BED ON LOWEST LOCKED POSITION, SIDE RAILS UP X2. BED ALARM ON. WILL ENDORSE TO NEXT SHIFT FOR ANGE.
--- NOTE | 2021-06-07 19:30 | NUR ---
MS/RN OPENING NOTE RECEIVED PATIENT RESTING IN BED. AWAKE, ALERT AND ORIENTED X 2. NO S/SX OF PAIN AT THIS TIME. CONTINUES ON ROOM AIR WITH NO S/SX OF RESPIRATORY DISTRESS NOTED. IV ACCESS TO RIGHT HAND #22G INTACT, PATENT AND SALINE LOCKED. CONTINUES ON IV ABX. CONTINUES WITH CHEST TUBES X 3 CONNECTED TO INTERMITTENT SUCTION. ARCHER CATHETER IN PLACE DRAINING CLEAR, YELLOW URINE TO GRAVITY. CALL LIGHT WITHIN REACH. ASPIRATION, FALL AND SAFETY PRECAUTIONS MAINTAINED. WILL CONTINUE TO MONITOR.
[2021-06-07 20:00] VITALS: BP 115/68
[2021-06-08] MEDS: VANCOMYCIN 1 GM in IV D5W 250 ML IV SCH ×3 (00:18→16:34)
[2021-06-08] MEDS: MEROPENEM 1 G in IV NS 0.9% 100 ML IV SCH ×2 (04:20→12:56)
--- NOTE | 2021-06-08 06:30 | NUR ---
MS/RN CLOSING NOTE PATIENT CURRENTLY RESTING IN BED. AWAKE, ALERT AND ORIENTED X 2. NO S/SX OF PAIN AT THIS TIME. CONTINUES ON ROOM AIR WITH NO S/SX OF RESPIRATORY DISTRESS NOTED. IV ACCESS TO RIGHT HAND #22G INTACT, PATENT AND SALINE LOCKED. CONTINUES ON IV ABX. CONTINUES WITH CHEST TUBES X 3 CONNECTED TO INTERMITTENT SUCTION. NO OUTPUT FROM ANY CHEST TUBES NOTED IN CHAMBER THIS SHIFT. ARCHER CATHETER IN PLACE DRAINING CLEAR, YELLOW URINE TO GRAVITY. CALL LIGHT WITHIN REACH. ASPIRATION, FALL AND SAFETY PRECAUTIONS MAINTAINED. WILL ENDORSE PLAN OF CARE TO ONCOMING SHIFT.
[2021-06-08 06:36] LABS: BASOPHILS # (AUTO) 0.1 K/uL (0.0-0.2); BASOPHILS % (AUTO) 0.9 % (0.0-2.0); EOSINOPHILS % (AUTO) 3.1 % (0.0-6.0); HEMATOCRIT 33 % (39-51); HEMOGLOBIN 11.3 g/dL (13.5-17.5); LYMPHOCYTES # (AUTO) 1.3 K/uL (0.8-4.8); LYMPHOCYTES % (AUTO) 13.3 % (20.0-44.0); MEAN CORPUSCULAR HGB CONC 34 g/dl (31.0-36.0); MEAN CORPUSCULAR VOLUME 87 fL (80-96); MONOCYTES # (AUTO) 0.7 K/uL (0.1-1.30); MONOCYTES % (AUTO) 7.4 % (2.0-12.0); NEUTROPHILS # (AUTO) 7.6 K/uL (1.8-8.9); NEUTROPHILS % (AUTO) 75.3 % (43.0-81.0); PLATELET COUNT (AUTO) 431 K/uL (150-450); RED BLOOD CELL COUNT(AUTO) 3.83 MIL/uL (4.5-6.0); WHITE BLOOD COUNT (AUTO) 10.1 K/uL (4.3-11.0)
--- NOTE | 2021-06-08 07:30 | NUR ---
MS/RN OPENING NOTE PATIENT CURRENTLY RESTING IN BED. AWAKE, ALERT AND ORIENTED X 1. NONVERBAL. NO S/SX OF PAIN AT THIS TIME. ON ROOM AIR WITH NO S/SX OF RESPIRATORY DISTRESS NOTED. IV ACCESS TO RIGHT HAND #22G INTACT, PATENT AND SALINE LOCKED. CONTINUES WITH CHEST TUBES X 3 CONNECTED TO INTERMITTENT SUCTION. ARCHER CATHETER IN PLACE DRAINING CLEAR, YELLOW URINE TO GRAVITY. CALL LIGHT WITHIN REACH. ASPIRATION, FALL AND SAFETY PRECAUTIONS MAINTAINED. WILL CONTINUE TO MONITOR.
[2021-06-08] MEDS: PANTOPRAZOLE 40 MG TABLET.DR PO SCH (07:46)
[2021-06-08] MEDS: ENSURE ENLIVE 237 ML LIQUID (VANILLA) PO SCH ×2 (08:03→16:58)
[2021-06-08] MEDS: THIAMINE HCL 100 MG TABLET PO SCH (08:14)
[2021-06-08] MEDS: CLOTRIMAZOLE 1% 15 GM TUBE TP SCH ×2 (08:14→16:35)
[2021-06-08 09:27] VITALS: BP 136/82
[2021-06-08 11:26] LABS: CREATININE 0.8 mg/dL (0.6-1.3); POTASSIUM 3.4 mmol/L (3.5-5.1)
[2021-06-08 17:41] VITALS: BP 119/78
--- NOTE | 2021-06-08 18:52 | NUR ---
MS/RN CLOSING NOTE PATIENT RESTING IN BED. AWAKE, ALERT AND ORIENTED X 1. NONVERBAL. NO S/SX OF PAIN AT THIS TIME. ON ROOM AIR WITH NO S/SX OF RESPIRATORY DISTRESS NOTED. IV ACCESS TO RIGHT HAND #22G INTACT, PATENT AND SALINE LOCKED. CONTINUES WITH CHEST TUBES X 3 CONNECTED TO INTERMITTENT SUCTION. ARCHER CATHETER IN PLACE DRAINING CLEAR, YELLOW URINE TO GRAVITY.OUTPUT 300 ML. ALL DUE MEDS GIVEN ORDERED. CALL LIGHT WITHIN REACH. ASPIRATION, FALL AND SAFETY PRECAUTIONS MAINTAINED. WILL ENDORSE TO INCOMING SHIFT FOR ANGE.
[2021-06-08 20:00] VITALS: BP 125/82
--- NOTE | 2021-06-09 03:29 | NUR ---
MS/RN NOTE PATIENT'S IV INFILTRATED WITH SLIGHT EDEMA TO RIGHT HAND. IV REMOVED WITH TIP INTACT. PATIENT TOLERATED WELL. PRESSURE DRESSING APPLIED. HOT PACK APPLIED TO INFILTRATION SITE. PATIENT DENIES PAIN. WILL ATTEMPT TO REPLACE PERIPHERAL IV.
[2021-06-09] MEDS: VANCOMYCIN 1 GM in IV D5W 250 ML IV SCH ×2 (05:15→16:17)
--- NOTE | 2021-06-09 06:30 | NUR ---
MS/RN CLOSING NOTE PATIENT CURRENTLY RESTING IN BED. AWAKE, ALERT AND ORIENTED X 2. NO S/SX OF PAIN AT THIS TIME. CONTINUES ON ROOM AIR WITH NO S/SX OF RESPIRATORY DISTRESS NOTED. IV ACCESS TO LEFT AC #20G INTACT, PATENT AND SALINE LOCKED. CONTINUES ON IV ABX. CONTINUES WITH CHEST TUBES X 3 CONNECTED TO INTERMITTENT SUCTION. NO NEW OUTPUT FOR ALL CHEST TUBES THIS SHIFT. ARCHER CATHETER IN PLACE DRAINING CLEAR, YELLOW URINE TO GRAVITY. CALL LIGHT WITHIN REACH. ASPIRATION, FALL AND SAFETY PRECAUTIONS MAINTAINED. WILL ENDORSE PLAN OF CARE TO ONCOMING SHIFT.
[2021-06-09 07:23] LABS: BASOPHILS # (AUTO) 0.1 K/uL (0.0-0.2); BASOPHILS % (AUTO) 0.6 % (0.0-2.0); EOSINOPHILS % (AUTO) 3.2 % (0.0-6.0); HEMATOCRIT 33 % (39-51); HEMOGLOBIN 11.2 g/dL (13.5-17.5); LYMPHOCYTES # (AUTO) 1.4 K/uL (0.8-4.8); LYMPHOCYTES % (AUTO) 14.6 % (20.0-44.0); MEAN CORPUSCULAR HGB CONC 34 g/dl (31.0-36.0); MEAN CORPUSCULAR VOLUME 88 fL (80-96); MONOCYTES # (AUTO) 0.6 K/uL (0.1-1.30); MONOCYTES % (AUTO) 6.5 % (2.0-12.0); NEUTROPHILS # (AUTO) 7.1 K/uL (1.8-8.9); NEUTROPHILS % (AUTO) 75.1 % (43.0-81.0); PLATELET COUNT (AUTO) 388 K/uL (150-450); RED BLOOD CELL COUNT(AUTO) 3.81 MIL/uL (4.5-6.0); WHITE BLOOD COUNT (AUTO) 9.5 K/uL (4.3-11.0)
--- NOTE | 2021-06-09 07:30 | NUR ---
MS/RN OPENING NOTE PATIENT CURRENTLY RESTING IN BED. AWAKE, ALERT AND ORIENTED X 1. NO S/SX OF PAIN AT THIS TIME. ON ROOM AIR WITH NO S/SX OF RESPIRATORY DISTRESS NOTED. IV ACCESS TO LEFT FOREARM 20 G INTACT, PATENT AND SALINE LOCKED. CONTINUES WITH CHEST TUBES X 3 CONNECTED TO INTERMITTENT SUCTION. ARCHER CATHETER IN PLACE DRAINING CLEAR, YELLOW URINE TO GRAVITY. CALL LIGHT WITHIN REACH. ASPIRATION, FALL AND SAFETY PRECAUTIONS MAINTAINED. WILL CONTINUE TO MONITOR.
[2021-06-09] MEDS: PANTOPRAZOLE 40 MG TABLET.DR PO SCH (07:58)
[2021-06-09 08:00] VITALS: BP 118/76
[2021-06-09] MEDS: ENSURE ENLIVE 237 ML LIQUID (VANILLA) PO SCH ×2 (08:11→17:21)
[2021-06-09] MEDS: THIAMINE HCL 100 MG TABLET PO SCH (09:13)
[2021-06-09] MEDS: CLOTRIMAZOLE 1% 15 GM TUBE TP SCH ×2 (09:13→16:18)
[2021-06-09] MEDS ORDERED: QUETIAPINE FUMARATE 25 MG TABLET PO PRN (10:00)
[2021-06-09 10:20] LABS: CALCIUM, SERUM 8.6 mg/dL (8.5-10.1); POTASSIUM 3.2 mmol/L (3.5-5.1)
[2021-06-09 16:00] VITALS: BP 120/73
[2021-06-09] MEDS ORDERED: POTASSIUM CHLORIDE 10 MEQ TABLET.SA PO ONE (17:00)
--- NOTE | 2021-06-09 19:30 | NUR ---
MS/RN CLOSING NOTE PATIENT CURRENTLY RESTING IN BED. AWAKE, ALERT AND ORIENTED X 1. NO S/SX OF PAIN AT THIS TIME. ON ROOM AIR WITH NO S/SX OF RESPIRATORY DISTRESS NOTED. IV ACCESS TO RIGHT AC INTACT. CONTINUES WITH CHEST TUBES X 1 CONNECTED TO INTERMITTENT SUCTION. DR BOB REMOVED 2 CHEST TUBES. NO ISSUE NOTED.ARCHER CATHETER IN PLACE DRAINING CLEAR, YELLOW URINE TO GRAVITY. CALL LIGHT WITHIN REACH. ASPIRATION, FALL AND SAFETY PRECAUTIONS MAINTAINED. ALL DUE MEDS GIVEN ORDERED. WILL ENDORSE FOR ANGE.
--- NOTE | 2021-06-09 19:50 | NUR ---
received patient in bed alert nonverbal following simple instructions called the pharmcy and spoke to Farnaz about the Vanco trough 06/08 stated that I was to give the 0500 06/09 vanco that they have adj the dose and the trough keren be drawn at 4pm 06/10
[2021-06-09 20:00] VITALS: BP 119/75
--- NOTE | 2021-06-09 21:03 | NUR ---
noted moving the pillows about in the bed removing the dressing that is protecting the IV site RT AC area Serpquel 25 mg given will monitor
[2021-06-10] MEDS: VANCOMYCIN 1 GM in IV D5W 250 ML IV SCH ×2 (05:08→17:18)
--- NOTE | 2021-06-10 05:35 | NUR ---
Ending notes: Seroquel PO given and effective for sleep Chest Tube Output (0 ) this [address] drainage clear yellow bed alarm on for safety non verbal this 12 hours good eye contact Alert / orientated X2 cooperative
[2021-06-10 06:24] LABS: BASOPHILS # (AUTO) 0.1 K/uL (0.0-0.2); EOSINOPHILS % (AUTO) 3.8 % (0.0-6.0); HEMATOCRIT 33 % (39-51); HEMOGLOBIN 11.4 g/dL (13.5-17.5); LYMPHOCYTES # (AUTO) 1.4 K/uL (0.8-4.8); LYMPHOCYTES % (AUTO) 17.4 % (20.0-44.0); MEAN CORPUSCULAR HGB CONC 34 g/dl (31.0-36.0); MEAN CORPUSCULAR VOLUME 88 fL (80-96); MONOCYTES # (AUTO) 0.6 K/uL (0.1-1.30); MONOCYTES % (AUTO) 7.8 % (2.0-12.0); NEUTROPHILS # (AUTO) 5.5 K/uL (1.8-8.9); PLATELET COUNT (AUTO) 383 K/uL (150-450); WHITE BLOOD COUNT (AUTO) 7.9 K/uL (4.3-11.0)
--- NOTE | 2021-06-10 07:20 | NUR ---
MS RN OPENING NOTE PATIENT ON BED ASLEEP BUT EASILY AROUSABLE. HE IS ALERT AND ORIENTED X 1. PATIENT IS ON ROOM AIR WITH NO SIGNS OF DISTRESS. WITH RIGHT AC IV ACCESS G22 ON SALINE LOCK, PATENT AND INTACT. NO COMPLAINTS OF PAIN OR DISCOMFORT AT THIS TIME. WITH RIGHT CHEST WALL PIGTAIL TO DRAINAGE WITH NO NOTED OUTPUT FOR 24 HOURS NOW. WITH ARCHER CATHETER TO URINE BAG, DRAINING YELLOWISH URINE. SAFETY MEASURES IN PLACED. CALL LIGHT WITHIN REACH. BED ON LOWEST LOCKED POSITION, SIDE RAILS UP X2. WILL CONTINUE TO MONITOR PATIENT.
[2021-06-10 07:54] LABS: CREATININE 0.9 mg/dL (0.6-1.3); MAGNESIUM 2.1 mg/dL (1.8-2.4); PHOSPHORUS 4.1 mg/dL (2.5-4.9); POTASSIUM 3.4 mmol/L (3.5-5.1)
[2021-06-10 08:00] VITALS: BP 121/71
[2021-06-10] MEDS: PANTOPRAZOLE 40 MG TABLET.DR PO SCH (08:41)
[2021-06-10] MEDS: ENSURE ENLIVE 237 ML LIQUID (VANILLA) PO SCH ×2 (08:41→17:18)
[2021-06-10] MEDS: THIAMINE HCL 100 MG TABLET PO SCH (08:42)
[2021-06-10] MEDS: SERTRALINE HCL 25 MG TABLET PO SCH (08:42)
[2021-06-10] MEDS: CLOTRIMAZOLE 1% 15 GM TUBE TP SCH ×2 (08:43→17:18)
[2021-06-10] MEDS ORDERED: POTASSIUM CHLORIDE 20 MEQ TAB.PRT.SR PO SCH (09:30)
--- NOTE | 2021-06-10 10:00 | NUR ---
MS RN NOTE PATIENT SEEN BY DR. KEE. WILL CONTINUE TO MONITOR PATIENT.
[2021-06-10 16:00] VITALS: BP_SYST 132; BP_SYST 162; BP_DIAS 88; BP_DIAS 96
--- NOTE | 2021-06-10 18:55 | NUR ---
MS RN CLOSING NOTE PATIENT ON BED ASLEEP BUT EASILY AROUSABLE. HE IS ALERT AND ORIENTED X 1. PATIENT IS ON ROOM AIR WITH NO SIGNS OF DISTRESS. WITH RIGHT AC IV ACCESS G22 ON SALINE LOCK, PATENT AND INTACT. NO COMPLAINTS OF PAIN OR DISCOMFORT AT THIS TIME. WITH RIGHT CHEST WALL PIGTAIL TO DRAINAGE WITH NO NOTED OUTPUT FOR 24 HOURS NOW. WITH ARCHER CATHETER TO URINE BAG, DRAINING YELLOWISH URINE. SAFETY MEASURES IN PLACED. CALL LIGHT WITHIN REACH. BED ON LOWEST LOCKED POSITION, SIDE RAILS UP X2. WILL ENDORSE TO NEXT SHIFT FOR CONTINUITY OF CARE.
[2021-06-10 20:00] VITALS: BP 125/74
[2021-06-11] MEDS: VANCOMYCIN 1 GM in IV D5W 250 ML IV SCH (05:07)
--- NOTE | 2021-06-11 06:22 | NUR ---
MS RN NOTES AWAKE & RESPONSIVE. NOT IN ANY DISTRESS. NO SOB NOTED. DENIES ANY PAIN OR DISCOMFORT AT THIS TIME. WITH IVF INFUSING WELL. WITH CHEST TUBE TO WATER SEAL INTACT. NO DRAINAGE NOTED. AM CARE DONE. MONITORED ACCORDINGLY. CALL LIGHT WITHIN REACH. BED IN LOWEST POSITION. SR UP X 2 WITH BED ALARM ON FOR SAFETY. WILL ENDORSE TO NEXT SHIFT.
[2021-06-11 06:24] LABS: BASOPHILS # (AUTO) 0.1 K/uL (0.0-0.2); BASOPHILS % (AUTO) 0.6 % (0.0-2.0); EOSINOPHILS % (AUTO) 3.6 % (0.0-6.0); HEMATOCRIT 33 % (39-51); HEMOGLOBIN 11.3 g/dL (13.5-17.5); LYMPHOCYTES # (AUTO) 1.5 K/uL (0.8-4.8); LYMPHOCYTES % (AUTO) 14.4 % (20.0-44.0); MEAN CORPUSCULAR HGB CONC 34 g/dl (31.0-36.0); MEAN CORPUSCULAR VOLUME 88 fL (80-96); MONOCYTES # (AUTO) 0.7 K/uL (0.1-1.30); MONOCYTES % (AUTO) 6.3 % (2.0-12.0); NEUTROPHILS % (AUTO) 75.1 % (43.0-81.0); PLATELET COUNT (AUTO) 422 K/uL (150-450); RED BLOOD CELL COUNT(AUTO) 3.74 MIL/uL (4.5-6.0); WHITE BLOOD COUNT (AUTO) 10.7 K/uL (4.3-11.0)
[2021-06-11 06:56] LABS: CALCIUM, SERUM 8.9 mg/dL (8.5-10.1); CREATININE 0.9 mg/dL (0.6-1.3); POTASSIUM 3.2 mmol/L (3.5-5.1)
--- NOTE | 2021-06-11 07:19 | NUR ---
MS RN OPENING NOTE PATIENT ON BED ALERT AND MOM-VERBAL BUT NODS HEAD. PATIENT NOTED TO BE GUARDED AND DOES NOT WANT TO ENGAGE IN ANY CONVERSATION. PATIENT IS ON ROOM AIR WITH NO SIGNS OF DISTRESS. WITH LEFT FOREARM IV ACCESS G22 ON SALINE LOCK, PATENT AND INTACT. NO COMPLAINTS OF PAIN OR DISCOMFORT AT THIS TIME. WITH RIGHT CHEST WALL PIGTAIL TO DRAINAGE WITH NO NOTED OUTPUT FOR 24 HOURS ENDORSED. WITH ARCHER CATHETER TO URINE BAG, DRAINING YELLOWISH URINE. SAFETY MEASURES IN PLACED. CALL LIGHT WITHIN REACH. BED ON LOWEST LOCKED POSITION, SIDE RAILS UP X2. WILL CONTINUE TO MONITOR PATIENT.
[2021-06-11] MEDS: PANTOPRAZOLE 40 MG TABLET.DR PO SCH (08:09)
[2021-06-11] MEDS: ENSURE ENLIVE 237 ML LIQUID (VANILLA) PO SCH ×2 (08:09→16:59)
[2021-06-11] MEDS: THIAMINE HCL 100 MG TABLET PO SCH (08:10)
[2021-06-11] MEDS: SERTRALINE HCL 25 MG TABLET PO SCH (08:10)
[2021-06-11 08:14] VITALS: BP 137/76
--- NOTE | 2021-06-11 08:20 | NUR ---
MS RN NOTE PATIENT SEEN BY DR. EDMONDS. STILL WITH NO SIGNIFICANT OUTPUT NOTED ON THE DRAINAGE CONTAINER. NONE FROM MANAGER TRAVEL WELL ENDORSED. WILL CONTINUE TO MONITOR PATIENT.
[2021-06-11] MEDS: CLOTRIMAZOLE 1% 15 GM TUBE TP SCH ×2 (09:03→16:59)
[2021-06-11] MEDS ORDERED: POTASSIUM CHLORIDE 20 MEQ TAB.PRT.SR PO SCH (10:00)
--- NOTE | 2021-06-11 12:55 | NUR ---
MS RN NOTE PATIENT COMPLAINED OF PAIN ON THE LEFT ARM, NOTED GOOD CIRCULATION WITH NO MOTOR/ SENSORY DEFICIT FROM PREVIOUS ASSESSMENT. PAIN MEDICATION GIVEN REQUESTED. PROVIDED WITH CALM AND QUIET ENVIRONMENT. WILL CONTINUE TO MONITOR PATIENT.
[2021-06-11 16:32] VITALS: BP 159/97
[2021-06-11] MEDS: IBUPROFEN 600 MG TABLET PO PRN (16:42)
[2021-06-11] MEDS: VANCOMYCIN 0.75 GM in IV D5W 250 ML IV SCH (18:07)
--- NOTE | 2021-06-11 19:20 | NUR ---
MS RN CLOSING NOTE PATIENT ON BED ALERT AND NON-VERBAL BUT NODS HEAD. PATIENT NOTED TO BE GUARDED AND DOES NOT WANT TO ENGAGE IN ANY CONVERSATION. PATIENT IS ON ROOM AIR WITH NO SIGNS OF DISTRESS. WITH LEFT FOREARM IV ACCESS G22 ON SALINE LOCK, PATENT AND INTACT. NO COMPLAINTS OF PAIN OR DISCOMFORT AT THIS TIME. WITH RIGHT CHEST WALL PIGTAIL TO DRAINAGE WITH NO NOTED OUTPUT FOR 24 HOURS ENDORSED. WITH ARCHER CATHETER TO URINE BAG, DRAINING YELLOWISH URINE. SAFETY MEASURES IN PLACED. CALL LIGHT WITHIN REACH. BED ON LOWEST LOCKED POSITION, SIDE RAILS UP X2. WILL ENDORSE PATIENT FOR CONTINUITY OF CARE.
--- NOTE | 2021-06-11 19:32 | NUR ---
RN OPENING NOTES RECEIVED PT IN BED, AWAKE. AOx1. ON RA AND TOLERATING WELL. NO SOB NOTED. NO S/SX OF RESPIRATORY DISTRESS NOTED. ARCHER CATHETER IN PLACE. IV ACCESS NOT PRESENT AT TIME. CHEST TUBE PRESENT AND DRAINING FLUID. SAFETY PRECAUTIONS IN PLACE: BED IN LOWEST, LOCKED POSITION, SIDERAILS UPx2, AND BRAKES ON. TABLE AND CALL LIGHT WITHIN REACH. WILL CONTINUE TO MONITOR.
[2021-06-11] MEDS: LORAZEPAM 1 MG TABLET PO PRN (19:44)
--- NOTE | 2021-06-11 19:44 | NUR ---
ADMINISTERED ATIVAN FOR ANXIETY PER MD ORDER. WILL CONTINUE TO MONITOR.
[2021-06-12] MEDS: VANCOMYCIN 0.75 GM in IV D5W 250 ML IV SCH ×2 (04:05→16:14)
[2021-06-12 06:20] LABS: BASOPHILS # (AUTO) 0.1 K/uL (0.0-0.2); BASOPHILS % (AUTO) 0.9 % (0.0-2.0); EOSINOPHILS % (AUTO) 4.9 % (0.0-6.0); HEMATOCRIT 35 % (39-51); HEMOGLOBIN 11.7 g/dL (13.5-17.5); LYMPHOCYTES # (AUTO) 1.3 K/uL (0.8-4.8); LYMPHOCYTES % (AUTO) 15.1 % (20.0-44.0); MEAN CORPUSCULAR HGB CONC 34 g/dl (31.0-36.0); MEAN CORPUSCULAR VOLUME 87 fL (80-96); MONOCYTES # (AUTO) 0.6 K/uL (0.1-1.30); MONOCYTES % (AUTO) 7.2 % (2.0-12.0); NEUTROPHILS # (AUTO) 6.3 K/uL (1.8-8.9); NEUTROPHILS % (AUTO) 71.9 % (43.0-81.0); PLATELET COUNT (AUTO) 425 K/uL (150-450); RED BLOOD CELL COUNT(AUTO) 3.97 MIL/uL (4.5-6.0); WHITE BLOOD COUNT (AUTO) 8.8 K/uL (4.3-11.0)
[2021-06-12 06:37] LABS: CALCIUM, SERUM 8.6 mg/dL (8.5-10.1); CREATININE 0.8 mg/dL (0.6-1.3); MAGNESIUM 1.8 mg/dL (1.8-2.4); POTASSIUM 3.2 mmol/L (3.5-5.1)
--- NOTE | 2021-06-12 06:46 | NUR ---
RN CLOSING NOTES PT IN BED, AWAKE. AOx3, ABLE TO MAKE NEEDS KNOWN. ON RA AND TOLERATING WELL. NO SOB NOTED. NO S/SX OF RESPIRATORY DISTRESS NOTED. ARCHER CATHETER IN PLACE DRAINING 2500 ML OF CLEAR, YELLOW URINE. IV ACCESS IN L HAND #22G. IV IS INTACT, PATENT, AND FLUSHING WELL. CHEST TUBE PRESENT AND DRAINING FLUID. ALL NEEDS MET. PT KEPT CLEAN AND DRY. ADMINISTERED ATIVAN ONCE DURING SHIFT. SAFETY PRECAUTIONS IN PLACE: BED IN LOWEST, LOCKED POSITION, SIDERAILS UPx2, AND BRAKES ON. TABLE AND CALL LIGHT WITHIN REACH. WILL ENDORSE TO ONCOMING SHIFT FOR ANGE.
--- NOTE | 2021-06-12 07:30 | NUR ---
MS RN OPENING NOTES RECEIVED PT IN BED, AWAKE, AOx2-3 AND RESTLESS. ON RA AND TOLERATING WELL. NO SOB NOTED. NO S/SX OF RESPIRATORY DISTRESS NOTED. ARCHER CATHETER IN PLACE. IV ACCESS NOT PRESENT AT TIME. CHEST TUBE PRESENT AND DRAINING FLUID. SAFETY PRECAUTIONS IN PLACE: BED IN LOWEST, LOCKED POSITION, SIDERAILS UPx2, AND BRAKES ON. TABLE AND CALL LIGHT WITHIN REACH. WILL CONTINUE TO MONITOR.
[2021-06-12 08:00] VITALS: BP 140/80
[2021-06-12] MEDS: LORAZEPAM 1 MG TABLET PO PRN (08:23)
[2021-06-12] MEDS: PANTOPRAZOLE 40 MG TABLET.DR PO SCH (08:24)
[2021-06-12] MEDS: THIAMINE HCL 100 MG TABLET PO SCH (08:24)
[2021-06-12] MEDS: SERTRALINE HCL 25 MG TABLET PO SCH (08:24)
[2021-06-12] MEDS: ENSURE ENLIVE 237 ML LIQUID (VANILLA) PO SCH ×2 (08:24→16:14)
[2021-06-12] MEDS: POTASSIUM CHLORIDE 20 MEQ TAB.PRT.SR PO SCH ×2 (10:13→11:59)
[2021-06-12] MEDS: CLOTRIMAZOLE 1% 15 GM TUBE TP SCH ×2 (10:14→16:14)
--- NOTE | 2021-06-12 12:52 | NUR ---
RN NOTE PIGTAIL CATHETER ON THE RIGHT LOWER LOBE OF THE LUNG REMOVED AND PATIENT WAS ABLE TO TOLERATE AND FOLLOWED INSTRUCTION.
[2021-06-12 16:00] VITALS: BP 102/63
--- NOTE | 2021-06-12 19:15 | NUR ---
MS RN OPENING NOTES RECEIVED REPORT AT PATIENT'S BEDSIDE. PATIENT'S EYES CLOSED, RR EVEN AND UNLABORED. NAD AND STABLE. EASILY AROUSED BY VOICE COMMAND. NO DYSPNEA OBSERVED. DENIES PAIN. IV ACCESS AT LEFT FOREARM 22 GAUGE, FLUSHED, PATENT AND INTACT. SAFETY PRECAUTIONS IN PLACE: BED IN LOW, LOCKED POSITION, SIDERAILS UPx2, HOB ELEVATED TO SEMI-FOWLERS POSITION. PATIENT DEMONSTRATES ABILITY TO USE CALL LIGHT AND VERBALIZE NEEDS EFFECTIVELY. CALL LIGHT AND FREQUENTLY USED ITEMS WITHIN REACH.
--- NOTE | 2021-06-12 19:30 | NUR ---
MS RN CLOSING NOTES PATIENT RESTING IN BED, AWAKE AND A/O X4. ON RA AND TOLERATING WELL. NO SOB NOTED. NO S/SX OF RESPIRATORY DISTRESS NOTED. WITH NO COMPLAINTS OF PAIN OR DISCOMFORT AT THIS TIME. WITH IV ACCESS AT LEFT FOREARM G22 SALINE LOCKED, PATENT AND INTACT. DUE MEDS GIVEN. SAFETY PRECAUTIONS IN PLACE: BED IN LOWEST, LOCKED POSITION, SIDERAILS UPx2, AND BRAKES ON. TABLE AND CALL LIGHT WITHIN REACH. WILL ENDORSE TO NEXT SHIFT FOR ANGE.
[2021-06-12 20:00] VITALS: BP 167/85
[2021-06-13] MEDS: VANCOMYCIN 500 MG in IV D5W 100ml IV SCH ×2 (05:12→17:38)
[2021-06-13] MEDS: LORAZEPAM 1 MG TABLET PO PRN (05:18)
--- NOTE | 2021-06-13 05:24 | NUR ---
ADMINISTERED ATIVAN 1MG PO PER ORDER FOR S/SX OF ANXIETY, FEARFUL EPISODE.
--- NOTE | 2021-06-13 05:50 | NUR ---
MS RN CLOSING NOTES PATIENT IN BED, AWAKE. PATIENT EXPERIENCING INTERMITTENT CONFUSION THROUGHOUT THE NIGHT. ALERT AND ORIENTED X2-3 AT THIS TIME. INCONTINENT X1, USES URINAL AND BRP. DENIES PAIN. IV ACCESS AT LEFT FOREARM 22 GAUGE, FLUSHED, PATENT AND INTACT. PATIENT STABLE ON RA. SAFETY PRECAUTIONS IN PLACE: BED IN LOW, LOCKED POSITION, SIDERAILS UPx2, HOB ELEVATED TO SEMI-FOWLERS POSITION. PATIENT DEMONSTRATES ABILITY TO USE CALL LIGHT AND VERBALIZE NEEDS EFFECTIVELY. CALL LIGHT AND FREQUENTLY USED ITEMS WITHIN REACH.
[2021-06-13] MEDS: PANTOPRAZOLE 40 MG TABLET.DR PO SCH (06:32)
[2021-06-13 06:39] LABS: BASOPHILS # (AUTO) 0.1 K/uL (0.0-0.2); BASOPHILS % (AUTO) 0.6 % (0.0-2.0); EOSINOPHILS % (AUTO) 3.9 % (0.0-6.0); HEMATOCRIT 33 % (39-51); HEMOGLOBIN 11.2 g/dL (13.5-17.5); LYMPHOCYTES # (AUTO) 1.5 K/uL (0.8-4.8); LYMPHOCYTES % (AUTO) 15.9 % (20.0-44.0); MEAN CORPUSCULAR HGB CONC 34 g/dl (31.0-36.0); MEAN CORPUSCULAR VOLUME 88 fL (80-96); MONOCYTES # (AUTO) 0.6 K/uL (0.1-1.30); MONOCYTES % (AUTO) 6.6 % (2.0-12.0); NEUTROPHILS # (AUTO) 7.1 K/uL (1.8-8.9); PLATELET COUNT (AUTO) 448 K/uL (150-450); RED BLOOD CELL COUNT(AUTO) 3.79 MIL/uL (4.5-6.0); WHITE BLOOD COUNT (AUTO) 9.7 K/uL (4.3-11.0)
[2021-06-13 06:41] LABS: CALCIUM, SERUM 8.9 mg/dL (8.5-10.1); CREATININE 1.4 mg/dL (0.6-1.3); POTASSIUM 3.6 mmol/L (3.5-5.1)
--- NOTE | 2021-06-13 07:24 | NUR ---
MS RN OPENING NOTE- PT IN BED ASLEEP THOUGH EASILY AWAKENED, RESPIRATIONS EVEN AND NON-LABORED. NO DYSPNEA OBSERVED. DENIES PAIN. IV ACCESS AT LEFT FOREARM 22 GAUGE, SAFETY PRECAUTIONS IN PLACE: BED IN LOW, LOCKED POSITION, SIDE RAILS UPx2, HOB ELEVATED TO SEMI-FOWLERS POSITION. PATIENT DEMONSTRATES ABILITY TO USE CALL LIGHT AND VERBALIZE NEEDS EFFECTIVELY. CALL LIGHT AND FREQUENTLY USED ITEMS WITHIN REACH. MONITOR / ASSIST
[2021-06-13 08:00] VITALS: BP 126/66
[2021-06-13] MEDS: SERTRALINE HCL 25 MG TABLET PO SCH (08:38)
[2021-06-13] MEDS: THIAMINE HCL 100 MG TABLET PO SCH (08:38)
[2021-06-13] MEDS: ENSURE ENLIVE 237 ML LIQUID (VANILLA) PO SCH ×2 (08:39→17:05)
[2021-06-13] MEDS: CLOTRIMAZOLE 1% 15 GM TUBE TP SCH ×2 (08:39→17:05)
[2021-06-13 16:00] VITALS: BP 132/85
--- NOTE | 2021-06-13 18:49 | NUR ---
RN CLOSING NOTE- PT IN BED AWAKE INTERACTIVE, RESPIRATIONS EVEN AND NON-LABORED. NO DYSPNEA OBSERVED. DENIES PAIN. IV ACCESS AT LEFT FOREARM 22 GAUGE, SAFETY PRECAUTIONS IN PLACE: BED IN LOW, LOCKED POSITION, SIDE RAILS UPx2, HOB ELEVATED TO SEMI-FOWLERS POSITION. PATIENT DEMONSTRATES ABILITY TO USE CALL LIGHT AND VERBALIZE NEEDS EFFECTIVELY. CALL LIGHT AND FREQUENTLY USED ITEMS WITHIN REACH. MONITOR / ASSIST. PT OOB TODAY AND AMBULATORY.
--- NOTE | 2021-06-13 19:26 | NUR ---
MS RN OPENING NOTES RECEIVED REPORT, WILL CONT PLAN OF CARE; PATIENT IS AWAKE, A/OX2, [place] SPEAKING PATIENT, ON ROOM AIR, BREATHING EVEN AND UNLABORED; DENIES ANY PAIN OR DISCOMFORT AT THIS TIME; LFA # 22 DISLODGED AND REMOVED BY PREVIOUS SHIFT; PATIENT IS MULTIPLE IV STICKS, WILL INFORM CHARGE NURSE AND MD REGARDING MIDLINE IF POSSIBLE SINCE PATIENT RECEIVING ROUTINE IV ABX; BED LOCKED IN LOW POSITION; SIDE RAILS X2 UP, CALL LIGHT WITHIN REACH; WILL CONT TO MONITOR
[2021-06-13 20:00] VITALS: BP 112/69
--- NOTE | 2021-06-13 22:07 | NUR ---
MS RN NOTES PATIENT REFUSED PICTURES HE IS IN PAIN, PATIENT WAS EDUCATED ON IMPORTANCE OF COMPLIANCE; PATIENT STILL REFUSING AND WANTS TO JUST GO TO SLEEP, CHARGE NURSE AWARE, WILL CONT TO MONITOR
--- NOTE | 2021-06-14 00:47 | NUR ---
MS RN NOTES PATIENT REQUESTING SLEEPING MED, DENNISE GUITAR MAKER HAND ORDERED RESTORIL 7.5MG PO PRN. SPOKE WITH [facility], AWAITING VERIFICATION PRIOR TO ADMINISTRATION
[2021-06-14] MEDS ORDERED: TEMAZEPAM 15 MG CAPSULE PO PRN (01:00)
--- NOTE | 2021-06-14 01:51 | NUR ---
MS RN NOTES PATIENT CONFUSED, PATIENT FORGOT HE TOOK SLEEPING MEDICINE ALREADY; ASKING ART PSYCHOTHERAPIST FOR ANOTHER SLEEPING PILL; PATIENT RE-ORIENTED AND RE-EDUCATED; PATIENT INSOMNIA NOT CORRECT; WILL CONT TO MONITOR
--- NOTE | 2021-06-14 03:38 | NUR ---
MS RN NOTES PATIENT REFUSING SKIN ASSESSMENT, PATIENT CONFUSED, A/OX1-2, [place]OV[place] SPEAKING; PATIENT KEEPS ASKING FOR SLEEPING MEDICATION TO HELP HIM SLEEP; LIGHTS IN ROOM SHUT OFF; WILL CONT TO MONITOR; CHARGE NURSE AWARE
--- NOTE | 2021-06-14 04:00 | NUR ---
MS RN NOTES PATIENT AGREED FOR MINIMAL SKIN ASSESSMENT AND PICTURES; PICTURE PLACED IN CHART; CHARGE NURSE AWARE; WILL CONT TO MONITOR
[2021-06-14] MEDS: VANCOMYCIN 500 MG in IV D5W 100ml IV SCH ×2 (05:02→17:43)
--- NOTE | 2021-06-14 06:36 | NUR ---
MS RN CLOSING NOTES PATIENT IS AWAKE, A/OX1-2, BHUTANESE SPEAKING PATIENT BUT UNDERSTANDS SOME ARABIC; PATIENT HAD BOUTS OF CONFUSION THROUGHOUT SHIFT BUT ABLE TO BE RE-DIRECTED; ON ROOM AIR, BREATHING EVEN AND UNLABORED; DENIES ANY PAIN OR DISCOMFORT AT THIS TIME; LFA # 22 DISLODGED AND REMOVED BY PREVIOUS SHIFT; PATIENT IS MULTIPLE IV STICKS, ARACELI MIDLINE 18G, IN PLACE; FLUSHING WELL, TOLERATING IVF WELL; BED LOCKED IN LOW POSITION; SIDE RAILS X2 UP, CALL LIGHT WITHIN REACH; ALL NEEDS RENDERED WILL ENDORSE CONTINUITY OF CARE TO ONCOMING SHIFT
[2021-06-14 07:06] LABS: BASOPHILS # (AUTO) 0.1 K/uL (0.0-0.2); BASOPHILS % (AUTO) 0.8 % (0.0-2.0); EOSINOPHILS % (AUTO) 4.7 % (0.0-6.0); HEMATOCRIT 32 % (39-51); HEMOGLOBIN 10.7 g/dL (13.5-17.5); LYMPHOCYTES # (AUTO) 1.2 K/uL (0.8-4.8); LYMPHOCYTES % (AUTO) 11.2 % (20.0-44.0); MEAN CORPUSCULAR HGB CONC 34 g/dl (31.0-36.0); MEAN CORPUSCULAR VOLUME 88 fL (80-96); MONOCYTES # (AUTO) 0.8 K/uL (0.1-1.30); MONOCYTES % (AUTO) 7.1 % (2.0-12.0); NEUTROPHILS # (AUTO) 8.3 K/uL (1.8-8.9); NEUTROPHILS % (AUTO) 76.2 % (43.0-81.0); PLATELET COUNT (AUTO) 437 K/uL (150-450); WHITE BLOOD COUNT (AUTO) 10.9 K/uL (4.3-11.0)
[2021-06-14] MEDS: PANTOPRAZOLE 40 MG TABLET.DR PO SCH (07:22)
--- NOTE | 2021-06-14 07:23 | NUR ---
MS RN OPENING NOTES RECEIVED PT AWAKE IN BED IN NO ACUTE SIGNS OF DISTRESS. A/O x2. VERBALLY RESPONSIVE, DENIES PAIN AT THIS TIME. ON ROOM AIR, TOLERATING WELL WITH NO SOB NOTED. ARACELI MIDLINE INTACT, PATENT AND FLUSHES WELL. SAFETY PRECAUTIONS IN PLACE: BED IN LOWEST LOCKED POSITION, SIDE-RAILS UPx2, ALARM ON, TRAY TABLE AND CALL LIGHT WITHIN REACH. WILL CONTINUE TO MONITOR.
[2021-06-14 08:12] LABS: CALCIUM, SERUM 8.9 mg/dL (8.5-10.1); CREATININE 1.3 mg/dL (0.6-1.3); MAGNESIUM 2.1 mg/dL (1.8-2.4); POTASSIUM 3.1 mmol/L (3.5-5.1)
[2021-06-14] MEDS: THIAMINE HCL 100 MG TABLET PO SCH (08:14)
[2021-06-14] MEDS: SERTRALINE HCL 25 MG TABLET PO SCH (08:14)
[2021-06-14] MEDS: ENSURE ENLIVE 237 ML LIQUID (VANILLA) PO SCH ×2 (08:14→16:46)
[2021-06-14] MEDS: CLOTRIMAZOLE 1% 15 GM TUBE TP SCH ×2 (08:15→16:47)
[2021-06-14 08:34] VITALS: BP 138/87
--- NOTE | 2021-06-14 09:53 | NUR ---
RN NOTES PT WITH LOW LEVEL POTASSIUM 3.1 TODAY. ADMINISTERED K-DUR [id number] PO ORDERED.
[2021-06-14] MEDS ORDERED: POTASSIUM CHLORIDE 20 MEQ TAB.PRT.SR PO SCH (10:00)
--- NOTE | 2021-06-14 13:35 | NUR ---
RICK attempted to interview pt. regarding placement once discharge. Pt. refused to answer any questions. Pt.'s nurse Blayne stated that pt. is confused today. Per CM note, pt.'s sister Erna # is [phone]. Pt.'s full name: Cecil Botello
[2021-06-14 16:07] VITALS: BP 142/86
[2021-06-14] MEDS ORDERED: KEY,NONCONTROL,TO KEEP IN PYXI 1 EA MC ONE (16:08)
--- NOTE | 2021-06-14 18:37 | NUR ---
MS RN CLOSING NOTES PT AWAKE AND RESTING IN BED AT THIS TIME. A/O x2. VERBALLY RESPONSIVE WITH PERIODS OF CONFUSION AND FORGETFULNESS NOTED. ON ROOM AIR, TOLERATING WELL WITH NO SOB NOTED DURING THE DAY. ARACELI MIDLINE INTACT, PATENT AND FLUSHES WELL. ALL NEEDS AND CARE PROVIDED WELL. SAFETY PRECAUTIONS IN PLACE: BED IN LOWEST LOCKED POSITION, SIDE-RAILS UPx2, ALARM ON, TRAY TABLE AND CALL LIGHT WITHIN REACH. WILL ENDORSE ANGE TO STAMP MACHINE SERVICER NURSE.
--- NOTE | 2021-06-14 19:44 | NUR ---
MS RN OPENING NOTES RECEIVED PATIENT AWAKE, A/OX2, [place]ORI SPEAKING PATIENT, SOMETIMES CONFFUSED; PATIENT ON ROOM AIR, BREATHING EVEN AND UNLABORED;TOLERATING ROOM AIR WELL; DENIES ANY PAIN OR DISCOMFORT AT THIS TIME; PATIENT HAS ARACELI MIDLINE #18G INTACT AND PATENT, FLUSHING WELL; NO S/S OF REDNESS OF INFILTRATION NOTED; POSSIBLE DISCHARGE TOMORROW, AWAITING CASE MANAGEMENT TO CONFIRM WHICH SNF OR BOARD AND CARE PATIENT WILL BE TRANSFERRED TO; BED LOCKED IN LOW POSITION; SIDE RAILS X2 UP, CALL LIGHT WITHIN REACH; WILL CONT TO MONITOR AND CONTINUE PLAN OF CARE
[2021-06-14 20:00] VITALS: BP 139/70
[2021-06-14] MEDS: IBUPROFEN 600 MG TABLET PO PRN (21:41)
[2021-06-15] MEDS: VANCOMYCIN 500 MG in IV D5W 100ml IV SCH ×2 (05:38→18:00)
--- NOTE | 2021-06-15 06:43 | NUR ---
MS RN CLOSING NOTES PATIENT AA/OX2, AUSTRIAN SPEAKING PATIENT, SOMETIMES CONFUSED; PATIENT ONLY TALKS WHEN HE FEELS LIKE IT OR WHEN HE NEEDS SOMETHING; PATIENT ON ROOM AIR, BREATHING EVEN AND UNLABORED;TOLERATING ROOM AIR WELL; DENIES ANY PAIN OR DISCOMFORT AT THIS TIME; PATIENT HAS ARACELI MIDLINE #18G INTACT AND PATENT, FLUSHING WELL; NO S/S OF REDNESS OF INFILTRATION NOTED; PATIENT RECEIVES IVABX THERAPY, IV ANTIBIOTIC COURSE RUNS UNTIL 06/21, PATIENT WILL BE DISCHARGED WITH [facility], WILL INFORM DAY SHIFT; CHARGE NURSE AWARE; BED LOCKED IN LOW POSITION; SIDE RAILS X2 UP, CALL LIGHT WITHIN REACH; WILL ENDORSE ANGE
[2021-06-15 07:03] LABS: CALCIUM, SERUM 8.9 mg/dL (8.5-10.1); CREATININE 1.3 mg/dL (0.6-1.3); POTASSIUM 3.7 mmol/L (3.5-5.1)
--- NOTE | 2021-06-15 07:30 | NUR ---
RN OPENING NOTE RECEIVED PATIENT IN BED, AWAKE, ALERT AND ORIENTED X2 WITH PERIODS OF CONFUSION. NO ACUTE DISTRESS NOTED. BREATHING EVEN AND UNLABORED. CURRENTLY ON ROOM AIR @ 97% SPO2. HAS ARACELI MIDLINE #18G INTACT AND PATENT, NO S/S OF INFECTION. STILL AWAITING FOR CM TO CONFIRM WHICH SNF OR BOARD AND CARE PATIENT WILL BE TRANSFERRED TO. SAFETY MEASURES IN PLACED; BED LOCKED IN LOW POSITION; SIDE RAILS X2 UP, CALL LIGHT WITHIN REACH. WILL CONTINUE TO MONITOR THROUGHOUT SHIFT.
[2021-06-15 08:00] VITALS: BP 137/94
[2021-06-15] MEDS: PANTOPRAZOLE 40 MG TABLET.DR PO SCH (08:46)
[2021-06-15] MEDS: THIAMINE HCL 100 MG TABLET PO SCH (08:46)
[2021-06-15] MEDS: ENSURE ENLIVE 237 ML LIQUID (VANILLA) PO SCH ×2 (08:48→16:51)
[2021-06-15] MEDS: CLOTRIMAZOLE 1% 15 GM TUBE TP SCH ×2 (08:51→16:52)
[2021-06-15] MEDS ORDERED: SERTRALINE HCL 25 MG TABLET PO SCH (09:00)
[2021-06-15] MEDS: IBUPROFEN 600 MG TABLET PO PRN ×2 (09:19→18:22)
[2021-06-15 16:00] VITALS: BP 145/79
[2021-06-15] MEDS: LORAZEPAM 1 MG TABLET PO PRN (16:18)
--- NOTE | 2021-06-15 18:40 | NUR ---
MS RN CLOSING NOTES RESIDENT AWAKE IN BED, A/O X2. WITH PERIODS OF CONFUSION AND INABILITY TO ANSWER QUESTIONS. KEPT ASKING FOR AN INJECTION. RESPIRATION EVEN AND UNLABORED. TOLERATED ROOM AIR WELL. ADMINISTERED PAIN MED, UNABLE TO RATE PAIN, MOANING AND RESTLESSNESS NOTED. DISCHARGED TO HOME VIA EMT AT 1830 IN STABLE CONDITION. D/C INSTRUCTIONS PRINTED, EXPLAINED AND SENT HOME WITH PATIENT.
== END 2021-06-15 18:30 | disposition home or self-care (01) | DRG 871 ==
LOC: ER 08:38 → EDBD 15:01 → TRANSITION 15:01 → TELE 16:56 → MED 05-10 17:17
PROVIDERS: ADMIT Nurse Practitioner Family; ATTEND Student in an Organized Health Care Education/Training Program
PROC: 05H533Z Insertion of Infusion Device into Right Subclavian Vein, Percutaneous Approach (ICD-10-PCS; 2021-05-08)
PROC: B546ZZA Ultrasonography of Right Subclavian Vein, Guidance (ICD-10-PCS; 2021-05-08)
PROC: 009U3ZX Drainage of Spinal Canal, Percutaneous Approach, Diagnostic (ICD-10-PCS; 2021-05-10)
PROC: B01BYZZ Fluoroscopy of Spinal Cord using Other Contrast (ICD-10-PCS; 2021-05-10)
PROC: 05H533Z Insertion of Infusion Device into Right Subclavian Vein, Percutaneous Approach (ICD-10-PCS; 2021-05-14)
PROC: B546ZZA Ultrasonography of Right Subclavian Vein, Guidance (ICD-10-PCS; 2021-05-14)
PROC: 0W9930Z Drainage of Right Pleural Cavity with Drainage Device, Percutaneous Approach (ICD-10-PCS; principal; 2021-05-21)
PROC: 05H633Z Insertion of Infusion Device into Left Subclavian Vein, Percutaneous Approach (ICD-10-PCS; 2021-05-25)
PROC: B547ZZA Ultrasonography of Left Subclavian Vein, Guidance (ICD-10-PCS; 2021-05-25)
PROC: 3E0L3GC Introduction of Other Therapeutic Substance into Pleural Cavity, Percutaneous Approach (ICD-10-PCS; 2021-05-26)
PROC: 3E0L3GC Introduction of Other Therapeutic Substance into Pleural Cavity, Percutaneous Approach (ICD-10-PCS; 2021-05-28)
PROC: 05H633Z Insertion of Infusion Device into Left Subclavian Vein, Percutaneous Approach (ICD-10-PCS; 2021-06-02)
PROC: B547ZZA Ultrasonography of Left Subclavian Vein, Guidance (ICD-10-PCS; 2021-06-02)
PROC: 0W9930Z Drainage of Right Pleural Cavity with Drainage Device, Percutaneous Approach (ICD-10-PCS; 2021-06-03)
PROC: 05H533Z Insertion of Infusion Device into Right Subclavian Vein, Percutaneous Approach (ICD-10-PCS; 2021-06-13)
PROC: B546ZZA Ultrasonography of Right Subclavian Vein, Guidance (ICD-10-PCS; 2021-06-13)
DX: A41.9 Sepsis, unspecified organism (principal); N17.0 Acute kidney failure with tubular necrosis; K85.90 Acute pancreatitis without necrosis or infection, unspecified; G93.41 Metabolic encephalopathy; I21.A1 Myocardial infarction type 2; J86.9 Pyothorax without fistula; J15.9 Unspecified bacterial pneumonia; E87.0 Hyperosmolality and hypernatremia; F10.239 Alcohol dependence with withdrawal, unspecified; J91.8 Pleural effusion in other conditions classified elsewhere; J98.11 Atelectasis; E87.6 Hypokalemia; K76.0 Fatty (change of) liver, not elsewhere classified; Z20.822 Contact with and (suspected) exposure to COVID-19; F10.229 Alcohol dependence with intoxication, unspecified; K70.40 Alcoholic hepatic failure without coma; Z59.00 Homelessness unspecified; R74.01 Elevation of levels of liver transaminase levels; B30.9 Viral conjunctivitis, unspecified; K70.10 Alcoholic hepatitis without ascites; B95.4 Other streptococcus as the cause of diseases classified elsewhere; F41.9 Anxiety disorder, unspecified; F29 Unspecified psychosis not due to a substance or known physiological condition; F32.A Depression, unspecified; F39 Unspecified mood [affective] disorder
CPT/HCPCS: 36410; 36415; 62270; 70450-TC; 70551-TC; 71045-TC; 71250-TC; 75989-TC; 76700-TC; 76705-TC; 76770-TC; 80048-TC; 80053-TC; 80061-TC; 80074; 80076-TC; 80202-TC; 81001; 82140-TC; 82550-TC; 82553; 82962-TC; 83605-TC; 83690-TC; 83735-TC; 83970; 84100-TC; 84155; 84165; 84443-TC; 84484-TC; 85025-TC; 85610-TC; 85652-TC; 85730-TC; 86225; 86235; 86694; 86706; 87040-TC; 87070-TC; 87081-TC; 87086-TC; 87116; 87206; 87340; 87806; 89051-TC; 92526; 92611-TC; 95819-TC; 97116-TC; 97530-TC; A4215; A4217; C9113; C9803; G0378; G0480; J0696; J1644; J2060; J2185; J2250; J2270; J2310; J2405; J2997; J3010; J3370; J3411; J3490; J7030; J7040; J7050; J7060; J7070; Q9967